=== PATIENT | male | born 1975 | race Caucasian/White ===

== ENCOUNTER 2018-01-20 09:01 | Observation (INO) | payer MEDICAID, SELFPAY ==
[2018-01-20] VITALS (7 sets, daily range): BP systolic 120–146; BP diastolic 77–101; PULSE 63–87; RESP 18–20; TEMP 36.4–37; O2SAT 95–100; BMI 25.1; BMI 26.6; BMI 26.7
--- NOTE | 2018-01-20 09:11 | CT_ITS ---
STUDY: CT ABDOMEN AND PELVIS WITH CONTRAST REASON FOR EXAM: Male, 42 years old. Pain and bloating. RADIATION DOSAGE (If Supplied By Facility): CTDIvol = ( 12.58 ) mGy, DLP = ( 1169.60 ) mGycm TECHNIQUE: Transaxial images were obtained from the dome of the diaphragm to the symphysis pubis without oral contrast. 100ML ml of Isovue 300 contrast was administered. Sagittal and coronal images were reconstructed. Individualized dose optimization techniques were used for this CT. COMPARISON: CT of the abdomen and pelvis, November 06, 2013. CT of the abdomen, June 09, 2014. FINDINGS: There is a moderate to large right pleural effusion and small to moderate left pleural effusion. There is bibasilar atelectasis. No focal pulmonary mass is seen. The visualized portions of the heart are within normal limits. The liver is enlarged but are otherwise grossly normal. The main pulmonary artery measures 1.8 cm in diameter. There is marked edema of the gallbladder wall with gallbladder contraction. There is no visualized filling defects. There is no biliary ductal dilatation. Irregularity about the posterior lateral aspect of the spleen with multiple focal calcifications suggesting prior injury. The spleen is otherwise unremarkable. There is a 3.1 x 2.4 x 2.6 cm low-attenuation mass with calcified rim in the tail the pancreas. This demonstrates fluid attenuation centrally the pancreas appears otherwise unremarkable. Splenic vein is mildly atrophic. Normal bilateral adrenal glands. Normal right kidney. Normal left kidney. No mass or hydronephrosis. There is mild stranding of the bilateral perinephric fat pararenal fascial planes greater on the right. The stomach is distended with fluid and debris. There is no obstruction or wall thickening. There is evidence of multiple varices along the lesser curvature of the stomach. Normal small bowel. Normal colon. There is non-visualization of the appendix. There is diffuse atherosclerotic calcification of the abdominal aorta, without a demonstrated aneurysm. Normal inferior vena cava. Normal retroperitoneum. Normal urinary bladder. Normal prostate. There are calcifications within the vas deferens. There is no pelvic lymphadenopathy. No free air or free fluid is seen within the peritoneal cavity. There is mild anasarca of the soft tissues of the abdominal wall and flanks. There are small bilateral inguinal hernias of omental fat. There are diffuse degenerative changes of the visualized lumbar spine. CT/Abdomen/Pelvis W IV Cont ONLY IMPRESSION: 1. Marked reduction in the size of the cyst in the tail the pancreas. This formerly measured 7.8 x 6.7 x 7.1 cm. There is been interval calcification of the rim of the cyst. 2. Hepatomegaly. There is prominence of the portal veins marked atresia of the splenic vein and distended mesenteric vessels and varices along the lesser curvature of the stomach. Findings are consistent with cirrhosis. 3. Evidence of remote splenic injury. 4. Bilateral pleural effusions and atelectasis not seen on the previous study. 5. Mild anasarca. 6. Collapsed thick-walled gallbladder. BE secondary to liver disease. Electronically Signed: Dusty Best DO at 12:03 EDT Tel [phone], Service support ,
--- NOTE | 2018-01-20 09:12 | RAD_ITS ---
STUDY: X-RAY CHEST REASON FOR EXAM: Male, 42 years old. Shortness of breath. Bloating. TECHNIQUE: Single AP portable view of the chest. August 13, 2014. COMPARISON: None. FINDINGS: There is a decreased inspiratory effort. There is increasing density at the right lung base which may represent infiltrate. The lungs are otherwise clear. There is no demonstrated pleural abnormality. Normal size heart. Normal mediastinum and mc. Normal visualized pulmonary arteries. Normal visualized aortic arch and descending thoracic aorta. The thoracic spine is obscured by the mediastinum. Normal visualized ribs, clavicles, and shoulders. There is no demonstrated abnormality of the visualized soft tissue structures of the upper abdomen. RAD/Chest 1 View (Portable) IMPRESSION: Question right basilar infiltrate. Electronically Signed: Dusty Best DO at 10:53 EDT Tel [phone], Service support ,
[2018-01-20 09:24] LABS: Absolute Lymphocyte Count 1.11 X10^3/ul (0.83-4.51); Absolute Neutrophil Count 4.4 X10^3/uL (2.0-7.7); Basophil# 0.07 X10^3/uL; Basophil% 1.1 % (0-1); Eosinophil# 0.08 X10^3/uL; Eosinophils% 1.3 % (0-5); Hematocrit 27.3 % (40-54); Hemoglobin 9.1 g/dl (13.0-16.5); Lymphocyte # 1.11 X10^3/ul (4.0); Lymphocyte % 18.2 % (19-41); Mean Corp Hgb Conc 33.3 g/gl (32-36); Mean Corpuscular Hgb 32.7 pg (27.0-32.0); Mean Corpuscular Volume 98.2 fL (80-94); Mean Platelet Vol. 8.4 fl (6.2-12.0); Monocyte# 0.49 X10^3/uL; Neutrophil # 4.35 X10^3/uL (2.7-7.7); Neutrophil % 71.2 % (47-70); POSITIVE COUNT NO; POSITIVE DIFFERENTIAL NO; POSITIVE MORPHOLOGY NO; Platelet Count 280 K/mm3 (150-450); RBC Distribution Width CV 14.9 % (11.6-14.6); RBC Distribution Width SD 50.1 fl (35.1-43.9); Red Blood Count 2.78 M/mm3 (4.6-6.2); White Blood Count 6.1 K/mm3 (4.4-11.0)
[2018-01-20 09:40] LABS: ALB/GLOB Ratio 0.9 RATIO (0.9-2.4); AST(SGOT) 59 U/L (15-37); Alanine Aminotransfer ALT/SGPT 49 U/L (16-61); Albumin, Serum 2.9 g/dL (3.2-5.0); Alkaline Phosphatase 68 U/L (45-117); Anion Gap 6 (5-15); BUN 12 mg/dL (7-18); BUN/Creat Ratio 17.3 RATIO (10-20); Calcium,Total 7.7 mg/dL (8.5-10.1); Chloride 105 mmol/L (98-107); Creatinine, Serum 0.69 mg/dL (0.70-1.30); EST Glomerular Filtration Rate 133 mL/min (>60); Est Glom Filt Rate - Afr Amer 161 mL/min (>60); Estimated Creatinine Clearance 150.05 ml/min; Globulin 3.4 g/dL (2.2-4.2); Glucose 68 mg/dL (74-106); Lipase 91 U/L (73-393); Potassium 5.3 mmol/L (3.5-5.1); Protein, Total 6.3 g/dL (6.4-8.2); Sodium Level 138 mmol/L (136-145)
--- NOTE | 2018-01-20 13:24 | EKG12_ITS ---
Test Reason : PRE ADMISSION Blood Pressure : / mmHG Vent. Rate : 065 BPM Atrial Rate : 065 BPM P-R Int : 132 ms QRS Dur : 082 ms QT Int : 428 ms P-R-T Axes : 045 055 020 degrees QTc Int : 445 ms Normal sinus rhythm Low voltage QRS Borderline ECG Confirmed by SARAI RUIZ, YVONNE ([id number]), magazine editor ALISHA ALLEN ([id number]) on 01/23/2018 4:23:46 PM Referred By: AGUSTÍN Confirmed By:YVONNE MOON MD
[2018-01-20] MEDS: Acetaminophen 500 MG Tablet 1000 MG PO (13:36)
--- NOTE | 2018-01-20 14:38 | ED.VISSUMM ---
- ER Visit Summary Date of Service: 01/20/18 Chief Complaint: [abdominal swelling and shortness of breath.] History of Present Illness: The patient is a 42 M [the presents with abdominal swelling and shortness of breath worsening over the last 4 days. He has a history of prior pancreatitis but denies any nausea or vomiting. He denies any chest pain. He states he has a history of cirrhosis. He has no other complaints.] Physical Examination: [General: The patient appears well and in no apparent distress. Patient is resting comfortably on cart. Skin: Warm, dry, no pallor noted. No rash. Head: Normocephalic, atraumatic Neck: Supple, nontender. No JVD. Eye: PERRLA, EOMI. No jaundice. ENT: Moist mucus membranes, pharynx within normal limits. Cardiovascular: Regular Rate and Rhythm, no gallups or rubs Respiratory: Patient is in no distress, no accessory muscle use, lungs are clear to auscultation, no wheezing, rales or rhonchi Musculoskeletal: normal ROM, no deformity, no tenderness, no swelling. 2+ radial and DP pulses symmetric. GI: No tenderness to palpation, no masses appreciated. Mild distension. No rebound, guarding, or rigidity noted. Neurological: A&Ox3, normal strength and sensation. GCS 15. Psychiatric: Cooperative] Test Results: [Potassium slightly elevated at 5.3. Liver enzymes were normal. Chest x-ray shows right-sided effusion. CT abdomen and pelvis shows moderate to large right-sided pleural effusion and lesser left-sided pleural effusion. There has been decrease in size of his pancreatic cyst.] Emergency Department Course and Treatment: [Patient has new pleural effusions and dyspnea, EKG sinus rhythm with a rate of 65, no acute ischemic changes or arrhythmia. He is symptomatically dyspneic. No cardiac history. He denies chest pain. Patient discussed with Dr. Mckinley and will be admitted to the medical floor for further evaluation. Patient admitted in stable condition.] Treatment Plan: [admission] Disposition: [admission] Impression: [Dyspnea, Bilateral Pleural Effusions] This note was generated with [employer] dictation software. It may contain incorrect words, spelling, and punctuation that were not noted in review of the chart prior to signing ED Disposition - Plan for ED Patient: Disposition: Acute Care Hospital [facility] Chief Complaint: Shortness of Breath Referrals: [facility] [Primary Care Provider] -
--- NOTE | 2018-01-20 14:46 | ED.DCSUM_ITS ---
- ER Visit Summary Date of Service: 01/20/18 Chief Complaint: [abdominal swelling and shortness of breath.] History of Present Illness: The patient is a 42 M [the presents with abdominal swelling and shortness of breath worsening over the last 4 days. He has a history of prior pancreatitis but denies any nausea or vomiting. He denies any chest pain. He states he has a history of cirrhosis. He has no other complaints.] Physical Examination: [General: The patient appears well and in no apparent distress. Patient is resting comfortably on cart. Skin: Warm, dry, no pallor noted. No rash. Head: Normocephalic, atraumatic Neck: Supple, nontender. No JVD. Eye: PERRLA, EOMI. No jaundice. ENT: Moist mucus membranes, pharynx within normal limits. Cardiovascular: Regular Rate and Rhythm, no gallups or rubs Respiratory: Patient is in no distress, no accessory muscle use, lungs are clear to auscultation, no wheezing, rales or rhonchi Musculoskeletal: normal ROM, no deformity, no tenderness, no swelling. 2+ radial and DP pulses symmetric. GI: No tenderness to palpation, no masses appreciated. Mild distension. No rebound, guarding, or rigidity noted. Neurological: A&Ox3, normal strength and sensation. GCS 15. Psychiatric: Cooperative] Test Results: [Potassium slightly elevated at 5.3. Liver enzymes were normal. Chest x-ray shows right-sided effusion. CT abdomen and pelvis shows moderate to large right-sided pleural effusion and lesser left-sided pleural effusion. There has been decrease in size of his pancreatic cyst.] Emergency Department Course and Treatment: [Patient has new pleural effusions and dyspnea, EKG sinus rhythm with a rate of 65, no acute ischemic changes or arrhythmia. He is symptomatically dyspneic. No cardiac history. He denies chest pain. Patient discussed with Dr. Mckinley and will be admitted to the medical floor for further evaluation. Patient admitted in stable condition.] Treatment Plan: [admission] Disposition: [admission] Impression: [Dyspnea, Bilateral Pleural Effusions] This note was generated with [employer] dictation software. It may contain incorrect words, spelling, and punctuation that were not noted in review of the chart prior to signing ED Disposition - Plan for ED Patient: Disposition: Acute Care Hospital [facility] Chief Complaint: Shortness of Breath Referrals: [facility] [Primary Care Provider] -
[2018-01-20 15:31] LABS: Bedside Glucose 97 mg/dL (70-110)
[2018-01-20 15:36] LABS: Prothrombin Time (Protime)PT. 12.8 SECONDS (11.7-14.9)
[2018-01-20 15:37] LABS: Partial Thromboplast Time 27.7 Seconds (24.1-36.2)
--- NOTE | 2018-01-20 16:04 | NURSING ---
Patient's mother sought out this RN and told her that the patient was not fully truthful regarding his past substance use and alcohol use. she states that she can't count the number of drinks he has in a day and he recently has been drinking vodka. She did not elaborate on the substance use. the patient told this RN that he used a little bit of everything but that was years ago. She states that she wishes the doctor would just gice him some Ativan so he would calm down. This information was passed on to full charge bookkeeper.
[2018-01-20 16:28] LABS: BNP,B-Type NATRIURETIC PEPTIDE 516.9 pg/mL (0-100)
[2018-01-20 17:26] LABS: Bedside Glucose 226 mg/dL (70-110)
[2018-01-20] MEDS: Insulin Lispro 100 UNIT/ML INSULN.PEN SC ×2 (17:30→22:32)
--- NOTE | 2018-01-20 17:52 | ECHOD_ITS ---
Reason For Study: Elevated BNP Procedure This was a 2D Doppler, Color Flow transthoracic echocardiogram. The exam was of adequate technical quality. Exam performed portable in patient room. Left Ventricle Normal LV size. Left ventricular systolic function is normal. The estimated ejection fraction is 60 %. No regional wall motion abnormalities noted. Right Ventricle Normal RV size. Normal systolic function. Atria Normal left atrium. Normal right atrium. No doppler evidence for ASD. Mitral Valve There is no mitral annular calcification. Normal mitral valve. Trivial mitral valve insufficiency. Tricuspid Valve Normal tricuspid valve. Mild tricuspid valve insufficiency. Right ventricular systolic pressure estimated to be 41 mmHg. Aortic Valve Trisinus/trileaflet aortic valve. Normal aortic valve. Trivial aortic valve insufficiency. Pulmonic Valve The pulmonic valve is not well visualized. Trivial pulmonic valve insufficiency. Great Vessels Normal sized aortic root. Pericardium/Pleural No pericardial effusion. MMode/2D Measurements & Calculations LVIDd: 4.7 cm IVSd: 1.4 cm Ao root diam: 3.7 cm LVIDs: 2.6 cm LVPWd: 1.0 cm LA dimension: 3.9 cm FS: 44.8 % LAV(MOD-bp): 75.2 ml LVAd ap4: 30.0 cm2 SV(MOD-sp4): 49.4 ml LAV(MOD-bp) Indexed: 36.4 ml/m2 EDV(MOD-sp4): 90.2 ml LAV(MOD-sp2): 73.2 ml EDV(sp4-el): 92.6 ml LAV(MOD-sp4): 69.5 ml LVAs ap4: 18.8 cm2 ESV(MOD-sp4): 40.9 ml ESV(sp4-el): 40.9 ml EF(MOD-sp4): 54.7 % EF(sp4-el): 55.9 % SV(sp4-el): 51.8 ml LA A4 area: 22.5 cm2 RA A4 area: 18.1 cm2 Time Measurements MV dec time: 0.24 sec Doppler Measurements & Calculations MV E max jorge: 78.9 cm/sec Lat Peak E' Jorge: 11.4 cm/sec Med Peak E' Jorge: 10.5 cm/sec MV A max jorge: 55.1 cm/sec E/E' lat: 6.9 E/E' med: 7.5 MV E/A: 1.4 MV V2 max: 84.1 cm/sec MV P1/2t max jorge: 85.4 cm/sec Ao V2 max: 101.9 cm/sec MV max P.8 mmHg MV P1/2t: 74.2 msec Ao max P.2 mmHg MV V2 mean: 41.6 cm/sec MV dec slope: 337.0 cm/sec2 Ao V2 mean: 64.8 cm/sec MV mean P.83 mmHg MVA(P1/2t): 3.0 cm2 Ao mean P.9 mmHg MV V2 VTI: 21.8 cm Ao V2 VTI: 20.2 cm LV V1 max: 95.9 cm/sec PA V2 max: 74.0 cm/sec TR max jorge: 306.6 cm/sec LV V1 max P.7 mmHg TR max P.6 mmHg LV V1 mean P.6 mmHg LV V1 mean: 59.4 cm/sec LV V1 VTI: 20.4 cm Interpretation Summary Left ventricular systolic function is normal. The estimated ejection fraction is 60 %. Trivial mitral valve insufficiency. Mild tricuspid valve insufficiency. Trivial aortic valve insufficiency. Trivial pulmonic valve insufficiency. Right ventricular systolic pressure estimated to be 41 mmHg. Diastolic function: considered indeterminate. Ordering Physician: Lucio Mckinley Referring Physician: [facility] Performed By: Otoniel Alvarez RCS
--- NOTE | 2018-01-20 18:58 | PCM.HP.STD ---
Problem List (1) Abdominal bloating Status: Acute (2) Abdominal discomfort Status: Acute (3) Shortness of breath Status: Acute History of Present Illness Date of Admission: 01/20/18 Chief Complaint: Abdominal bloating, abdominal discomfort, shortness of breath The patient is a 42 year old M seen in the emergency room at [facility] with chief complaint of abdominal, and generalized abdominal pain, and a feeling of shortness of breath over the last 3 days. Patient also complains of intermittent diarrhea. Patient was placed on metformin approximately 2 months ago to help with his diabetic control. He does have a history of cirrhosis of the liver that was diagnosed in August 2017. Patient sees a nurse practitioner in the [facility], he states recently he was granted Medicaid but he does not have his Medicaid card presently. Patient denies any cough, fever, purulent sputum production, chills, or hemoptysis. Workup in the emergency room included a CT of the abdomen which showed a pancreatic cyst, hepatomegaly was also noted, there is no ascites noted, there is noted to be mild anasarca of the soft tissues of the abdominal wall and flanks. No hernias were noted bilaterally. The presence of pleural effusions were noted-there was a moderate to large right pleural effusion and a small to moderate left pleural effusion. Bibasilar atelectasis was also noted. Patient's labs were remarkable for hemoglobin of 9.1, potassium was 5.3, AST was elevated at 59, total protein was low at 6.3 and albumin was 2.9. Patient's pulse ox on room air was 100%. Patient will be placed in observation status for dyspnea and right pleural effusion, patient will be seen by pulmonary medicine and may have to undergo a thoracentesis which would be diagnostic. I believe the patient's complaints of abdominal bloating may be caused from his metformin, there are no signs of ascites on the patient's CT. I will keep the patient off metformin. Past Medical History Past Medical History (Chronic Problems): Chronic Problems History of tobacco abuse (Chronic) Pseudocyst Pancreatic Tail (Chronic) History of pancreatitis (Chronic) Type II diabetes mellitus (Chronic) History of alcohol use (Chronic) Obesity (Chronic) Dyslipidemia (Chronic) Allergies sulfamethoxazole [From Bactrim] Allergy (Verified 01/20/18 14:04) Hives trimethoprim [From Bactrim] Allergy (Verified 01/20/18 14:04) Hives Home Medications: Ambulatory Orders Medication Instructions Recorded Albuterol IH (ProAir) [Proair Hfa 2 puff INHALATION Q4H PRN 01/20/18 (SP)Vent Pts] Cholecalciferol (VIT D3) [Vitamin 1 tablet PO DAILY 01/20/18 D3] Gabapentin [Neurontin] 1 capsule PO TID 01/20/18 Ibuprofen 3 tablet PO PRN PRN 01/20/18 Insulin Aspart [Novolog Flexpen See Protocol SC TIDCM 01/20/18 ([facility])] Insulin Glargine,Hum.rec.anlog 35 units SQ DAILY 01/20/18 [Basaglar Kwikpen U-100] Metformin HCl [Glucophage] 1 tablet PO BID 01/20/18 Surgical History: noncontributory Psychiatric History: No pertinent psych hx Lives: With Family Smoking Status: Light Smoker (<10/day) Tobacco Use: Cigarettes Alcohol: None Drugs: None - *Family History Maternal History Items: Heart Disease Paternal History Items: Diabetes Review of Systems Constitutional: Denies: Anorexia, Chills, Fever, Night Sweats, Malaise, Weakness, Weight Change, Fatigue Eyes: Denies: Blurred vision, Cataracts, Conjunctivae Inflammation, Double vision, Drainage HEENT: Denies: Difficulty Swallowing, Dysphasia, Ear Pain, Eye Pain, Head Aches, Hearing Changes, Nasal bleeding, Nasal Congestion, Post Nasal Drip Cardiovascular: Denies: Chest Pain, Claudication, Chest Pressure, Chest Tightness, Edema, Orthopnea, Palpitations, Paroxysmal Noc. Dyspnea, Syncope Respiratory: Reports: Shortness of Breath, Shortness of breath upon exertion. Denies: Cough, Hemoptysis, Pleuritic Pain, Shortness of breath at rest Gastrointestinal: Reports: Abdominal Pain. Denies: Constipation, Diarrhea, Hematemesis, Hematochezia, Nausea, Melena, Vomiting Genitourinary: Denies: Dysuria, Frequency, Hematuria, Hesitancy, Incontinence, Nocturia, Urgency Musculoskeletal: Denies: Back Pain, Foot Pain, Hand Pain, Joint Pain, Joint stiffness, Joint swelling, Joint Tenderness Skin: Denies: Dryness, Jaundice, Pruritis, Rash Neurological: Denies: Blurred vision, Double vision, Change in Speech, Slurred speech, Difficulty swallowing, Focal weakness, Headaches, Incoordination, Numbness, Tingling Psychiatric: Denies: Anxiety, Depression, Homicidal Ideations, Suicidal Ideations Endocrine: Denies: Change in Body Habitus, Heat/ Cold Intolerance, Polydipsia, Polyuria Hematologic/ Lymphatic: Denies: Adenopathy, Anemia, Easy Bruising, Easy Bleeding, Petechiae, Purpura VTE Information - Inpt Only VTE Present on Admission: No VTE Mechan Device Prophylaxis: None VTE Pharm Prophylaxis ordered?: Yes Patient Problems: Active and Suspected Problems Abdominal bloating (Acute) Abdominal discomfort (Acute) Shortness of breath (Acute) - Physical Exam General: Alert, Oriented x3, Cooperative, No apparent distress, Well developed, Well nourished HEENT: Atraumatic, PERRLA, EOMI, Normocephalic Oral: Moist Mucosa Neck: Supple, No JVD, Negative Carotid Bruits, No Nuchal Rigidity, Trachea Midline, Thyroid Normal Size and Texture Lungs: Clear to auscultation, No rhonchi, No wheeze, No rales, Diminished - diminshed breath sounds at bases bilaterally Cardiovascular: Regular rate, Regular Rhythm, Normal S1, Normal S2, No murmurs, No Ectopic Activity, PMI Normal, No rub noted, No Gallop Abdomen: Bowel Sounds Present, Soft, Non Tender, Non-Distended, No hernias noted Extremities: No clubbing, No cyanosis, No edema, Capillary Refill Less than 3 Seconds Skin: No rashes, No breakdown Musculoskeletal: No Tenderness to Palpation of Joints or Extremities Neurological: Cranial nerves II-XII grossly intact, Neuro grossly intact, Motor Exam 5/5 strength throughout, Muscle tone normal, Sensory exam intact to light touch and pain Psych/Mental Status: Normal Affect, Appropriate, Alert and oriented to time, place, person, mood and affect Vital Signs Temp Pulse Resp BP Pulse Ox 98.5 F 63 18 125/93 H 100 01/20/18 16:00 01/20/18 16:00 01/20/18 16:00 01/20/18 16:00 01/20/18 16:00 Oxygen Delivery Method Room Air Weight: 86.727 kg Body Mass Index (BMI) 26.6 Intake and Output for Last 24 Hours 01/18/18 01/19/18 01/20/18 23:59 23:59 23:59 Intake Total 400 / 400 Balance 400 / 400 Laboratory Tests Past 24 Hrs 01/20/18 15:20 PT 12.8 INR 1.0 APTT 27.7 POC Glucose 01/20/18 01/20/18 17:20 15:23 POC Glucose 226 H 97 Assessment/Plan All Active Problems Abdominal bloating (Acute) Abdominal discomfort (Acute) Shortness of breath (Acute) #1 Right and left pleural effusions-etiology unknown, patient will be placed into observation status, he will be seen by pulmonary medicine, pulse ox will be monitored #2 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 Cesar at the [facility] for Hepatitis C, patient states he quit drinking two weeks ago, his Mother told nursing that he still drinks at home, it is unknown how much he drinks #3 Anemia-type unknown, I will order iron studies #4 Abdominal pain and bloating, probably secondary to Metformin use, don't know why patient is on Metformin-he states he has type 1 DM #5 DM- unknown if type 1 or type 2- will continue patient on basal insulin, fingerstick blood sugars will be obtained and sliding scale insulin will be given Further note: patient had a BNP ordered by ER- it was elevated at 516, I will order echo of heart on patient, last echo done was 2014 due to c/o chest pain, this was unremarkable Code Visit OBSV E&M: 94839 Initial observation care L3
--- NOTE | 2018-01-20 19:09 | HP.PCM_ITS ---
Problem List (1) Abdominal bloating Status: Acute (2) Abdominal discomfort Status: Acute (3) Shortness of breath Status: Acute History of Present Illness Date of Admission: 01/20/18 Chief Complaint: Abdominal bloating, abdominal discomfort, shortness of breath The patient is a 42 year old M seen in the emergency room at [facility] with chief complaint of abdominal, and generalized abdominal pain, and a feeling of shortness of breath over the last 3 days. Patient also complains of intermittent diarrhea. Patient was placed on metformin approximately 2 months ago to help with his diabetic control. He does have a history of cirrhosis of the liver that was diagnosed in August 2017. Patient sees a nurse practitioner in the [facility], he states recently he was granted Medicaid but he does not have his Medicaid card presently. Patient denies any cough, fever, purulent sputum production, chills, or hemoptysis. Workup in the emergency room included a CT of the abdomen which showed a pancreatic cyst, hepatomegaly was also noted, there is no ascites noted, there is noted to be mild anasarca of the soft tissues of the abdominal wall and flanks. No hernias were noted bilaterally. The presence of pleural effusions were noted-there was a moderate to large right pleural effusion and a small to moderate left pleural effusion. Bibasilar atelectasis was also noted. Patient' s labs were remarkable for hemoglobin of 9.1, potassium was 5.3, AST was elevated at 59, total protein was low at 6.3 and albumin was 2.9. Patient's pulse ox on room air was 100%. Patient will be placed in observation status for dyspnea and right pleural effusion, patient will be seen by pulmonary medicine and may have to undergo a thoracentesis which would be diagnostic. I believe the patient's complaints of abdominal bloating may be caused from his metformin, there are no signs of ascites on the patient's CT. I will keep the patient off metformin. Past Medical History Past Medical History (Chronic Problems): Chronic Problems History of tobacco abuse (Chronic) Pseudocyst Pancreatic Tail (Chronic) History of pancreatitis (Chronic) Type II diabetes mellitus (Chronic) History of alcohol use (Chronic) Obesity (Chronic) Dyslipidemia (Chronic) Allergies sulfamethoxazole [From Bactrim] Allergy (Verified 01/20/18 14:04) Hives trimethoprim [From Bactrim] Allergy (Verified 01/20/18 14:04) Hives Home Medications: Ambulatory Orders Medication Instructions Recorded Albuterol IH (ProAir) [Proair Hfa 2 puff INHALATION Q4H PRN 01/20/18 (SP)Vent Pts] Cholecalciferol (VIT D3) [Vitamin 1 tablet PO DAILY 01/20/18 D3] Gabapentin [Neurontin] 1 capsule PO TID 01/20/18 Ibuprofen 3 tablet PO PRN PRN 01/20/18 Insulin Aspart [Novolog Flexpen See Protocol SC TIDCM 01/20/18 ([facility])] Insulin Glargine,Hum.rec.anlog 35 units SQ DAILY 01/20/18 [Basaglar Kwikpen U-100] Metformin HCl [Glucophage] 1 tablet PO BID 01/20/18 Surgical History: noncontributory Psychiatric History: No pertinent psych hx Lives: With Family Smoking Status: Light Smoker (<10/day) Tobacco Use: Cigarettes Alcohol: None Drugs: None - *Family History Maternal History Items: Heart Disease Paternal History Items: Diabetes Review of Systems Constitutional: Denies: Anorexia, Chills, Fever, Night Sweats, Malaise, Weakness , Weight Change, Fatigue Eyes: Denies: Blurred vision, Cataracts, Conjunctivae Inflammation, Double vision, Drainage HEENT: Denies: Difficulty Swallowing, Dysphasia, Ear Pain, Eye Pain, Head Aches , Hearing Changes, Nasal bleeding, Nasal Congestion, Post Nasal Drip Cardiovascular: Denies: Chest Pain, Claudication, Chest Pressure, Chest Tightness, Edema, Orthopnea, Palpitations, Paroxysmal Noc. Dyspnea, Syncope Respiratory: Reports: Shortness of Breath, Shortness of breath upon exertion. Denies: Cough, Hemoptysis, Pleuritic Pain, Shortness of breath at rest Gastrointestinal: Reports: Abdominal Pain. Denies: Constipation, Diarrhea, Hematemesis, Hematochezia, Nausea, Melena, Vomiting Genitourinary: Denies: Dysuria, Frequency, Hematuria, Hesitancy, Incontinence, Nocturia, Urgency Musculoskeletal: Denies: Back Pain, Foot Pain, Hand Pain, Joint Pain, Joint stiffness, Joint swelling, Joint Tenderness Skin: Denies: Dryness, Jaundice, Pruritis, Rash Neurological: Denies: Blurred vision, Double vision, Change in Speech, Slurred speech, Difficulty swallowing, Focal weakness, Headaches, Incoordination, Numbness, Tingling Psychiatric: Denies: Anxiety, Depression, Homicidal Ideations, Suicidal Ideations Endocrine: Denies: Change in Body Habitus, Heat/ Cold Intolerance, Polydipsia, Polyuria Hematologic/ Lymphatic: Denies: Adenopathy, Anemia, Easy Bruising, Easy Bleeding , Petechiae, Purpura VTE Information - Inpt Only VTE Present on Admission: No VTE Mechan Device Prophylaxis: None VTE Pharm Prophylaxis ordered?: Yes Patient Problems: Active and Suspected Problems Abdominal bloating (Acute) Abdominal discomfort (Acute) Shortness of breath (Acute) - Physical Exam General: Alert, Oriented x3, Cooperative, No apparent distress, Well developed, Well nourished HEENT: Atraumatic, PERRLA, EOMI, Normocephalic Oral: Moist Mucosa Neck: Supple, No JVD, Negative Carotid Bruits, No Nuchal Rigidity, Trachea Midline, Thyroid Normal Size and Texture Lungs: Clear to auscultation, No rhonchi, No wheeze, No rales, Diminished - diminshed breath sounds at bases bilaterally Cardiovascular: Regular rate, Regular Rhythm, Normal S1, Normal S2, No murmurs, No Ectopic Activity, PMI Normal, No rub noted, No Gallop Abdomen: Bowel Sounds Present, Soft, Non Tender, Non-Distended, No hernias noted Extremities: No clubbing, No cyanosis, No edema, Capillary Refill Less than 3 Seconds Skin: No rashes, No breakdown Musculoskeletal: No Tenderness to Palpation of Joints or Extremities Neurological: Cranial nerves II-XII grossly intact, Neuro grossly intact, Motor Exam 5/5 strength throughout, Muscle tone normal, Sensory exam intact to light touch and pain Psych/Mental Status: Normal Affect, Appropriate, Alert and oriented to time, place, person, mood and affect Vital Signs Temp Pulse Resp BP Pulse Ox 98.5 F 63 18 125/93 H 100 01/20/18 16:00 01/20/18 16:00 01/20/18 16:00 01/20/18 16:00 01/20/18 16:00 Oxygen Delivery Method Room Air Weight: 86.727 kg Body Mass Index (BMI) 26.6 Intake and Output for Last 24 Hours 01/18/18 01/19/18 01/20/18 23:59 23:59 23:59 Intake Total 400 / 400 Balance 400 / 400 Laboratory Tests Past 24 Hrs 01/20/18 15:20 PT 12.8 INR 1.0 APTT 27.7 POC Glucose 01/20/18 01/20/18 17:20 15:23 POC Glucose 226 H 97 Assessment/Plan All Active Problems Abdominal bloating (Acute) Abdominal discomfort (Acute) Shortness of breath (Acute) #1 Right and left pleural effusions-etiology unknown, patient will be placed into observation status, he will be seen by pulmonary medicine, pulse ox will be monitored #2 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 Cesar at the [facility] for Hepatitis C, patient states he quit drinking two weeks ago, his Mother told nursing that he still drinks at home, it is unknown how much he drinks #3 Anemia-type unknown, I will order iron studies #4 Abdominal pain and bloating, probably secondary to Metformin use, don't know why patient is on Metformin-he states he has type 1 DM #5 DM- unknown if type 1 or type 2- will continue patient on basal insulin, fingerstick blood sugars will be obtained and sliding scale insulin will be given Further note: patient had a BNP ordered by ER- it was elevated at 516, I will order echo of heart on patient, last echo done was 2014 due to c/o chest pain, this was unremarkable Code Visit OBSV E&M: 19052 Initial observation care L3
[2018-01-20] MEDS: Acetaminophen 325 MG Tablet 650 MG PO (19:21)
[2018-01-20 22:36] LABS: Bedside Glucose 168 mg/dL (70-110)
[2018-01-20] MEDS: hydrOXYzine PAM 25 MG Capsule 50 MG PO (22:36)
[2018-01-21] MEDS: Gabapentin 100 MG Capsule PO ×3 (00:02→14:29)
[2018-01-21 04:20] VITALS: BP 137/99; PULSE 76; RESP 18; TEMP 36.8; O2SAT 98
[2018-01-21] MEDS: Acetaminophen 325 MG Tablet 650 MG PO ×2 (04:25→14:29)
[2018-01-21 04:30] VITALS: PULSE 76; RESP 18; O2SAT 98
[2018-01-21 05:26] LABS: Bedside Glucose 60 mg/dL (70-110)
[2018-01-21] MEDS: 0.9% NaCl Peripheral Flush Adult/Peds IV ×2 (05:30→08:39)
[2018-01-21] MEDS: Dextrose 50%-Water 25 GM/50 ML DISP.SYRIN IV ×2 (05:30→08:38)
[2018-01-21 06:21] LABS: Absolute Neutrophil Count 2.7 X10^3/uL (2.0-7.7); Eosinophil# 0.14 X10^3/uL; Eosinophils% 2.7 % (0-5); Hematocrit 27.2 % (40-54); Lymphocyte % 33.3 % (19-41); Mean Corp Hgb Conc 33.1 g/gl (32-36); Mean Corpuscular Hgb 32.3 pg (27.0-32.0); Mean Corpuscular Volume 97.5 fL (80-94); Mean Platelet Vol. 9.4 fl (6.2-12.0); Monocyte# 0.44 X10^3/uL; Monocyte% 8.6 % (0-10); Platelet Count 282 K/mm3 (150-450); RBC Distribution Width CV 14.9 % (11.6-14.6); RBC Distribution Width SD 48.8 fl (35.1-43.9); Red Blood Count 2.79 M/mm3 (4.6-6.2); White Blood Count 5.1 K/mm3 (4.4-11.0)
[2018-01-21 06:23] LABS: Iron 48 ug/dL (65-175); Iron Binding Capacity,Total 257 ug/dL (250-450); PERCENT IRON SATURATION 18.7 % (15.0-55.0)
[2018-01-21 06:26] LABS: Bedside Glucose 94 mg/dL (70-110)
[2018-01-21 06:32] LABS: Anion Gap 6 (5-15); BUN 11 mg/dL (7-18); Calcium,Total 7.7 mg/dL (8.5-10.1); Chloride 109 mmol/L (98-107); Creatinine, Serum 0.61 mg/dL (0.70-1.30); EST Glomerular Filtration Rate 155 mL/min (>60); Est Glom Filt Rate - Afr Amer 187 mL/min (>60); Estimated Creatinine Clearance 169.73 ml/min; Glucose 51 mg/dL (74-106); Potassium 4.6 mmol/L (3.5-5.1); Sodium Level 143 mmol/L (136-145)
[2018-01-21 06:37] LABS: POSITIVE COUNT NO; POSITIVE DIFFERENTIAL NO; POSITIVE MORPHOLOGY NO
[2018-01-21 08:43] VITALS: BP 126/84; PULSE 67; RESP 14; TEMP 36.6; O2SAT 98
[2018-01-21 08:51] LABS: Bedside Glucose 71 mg/dL (70-110)
--- NOTE | 2018-01-21 09:10 | NURSING ---
0900, rechecked blood sugar 113. dr alan aware
[2018-01-21 09:15] LABS: Bedside Glucose 113 mg/dL (70-110)
--- NOTE | 2018-01-21 09:33 | PCM.PROGNOTE ---
Subjective: Chief complaint: Follow-up after admission for bilateral pleural effusions seem to be small. Patient seen and examined. No acute events overnight. He complains of mild abdominal bloating which is likely because of myofascitis. He denies abdominal pain, nausea vomiting. He has no more shortness of breath. Denied chest pain. No cough or sputum production. His vital signs are stable. - Physical Exam General: Alert, Oriented x3, Cooperative HEENT: Atraumatic, PERRLA, EOMI, Normocephalic Oral: Moist Mucosa, No Gingival or Mucosal Lesions/ Ulcerations Neck: Supple, No JVD, Negative Carotid Bruits, Trachea Midline, Thyroid Normal Size and Texture Lungs: Clear to auscultation, No rhonchi, No wheeze, No rales, Diminished, - - Decreased breath sounds at the bases, otherwise clear. Cardiovascular: Regular rate, Regular Rhythm, Normal S1, Normal S2, PMI Normal Abdomen: Bowel Sounds Present, Soft, Non Tender, Non-Distended, No Hepato-splenomegaly Extremities: No clubbing, No cyanosis, Edema - Trace edema. Skin: No rashes, No breakdown Lymphatic: No Cervical, Supraclavicular, or Inguinal Adenopathy Neurological: Cranial nerves II-XII grossly intact, Motor Exam 5/5 strength throughout Psych/Mental Status: Normal Affect, Appropriate Vital Signs Temp Pulse Resp BP Pulse Ox 97.8 F 67 14 126/84 H 98 01/21/18 08:43 01/21/18 08:43 01/21/18 08:43 01/21/18 08:43 01/21/18 08:43 Oxygen Delivery Method Room Air Weight: 191 lb 3.2 oz Body Mass Index (BMI) 26.6 Intake and Output for Last 24 Hours 01/19/18 01/20/18 01/21/18 23:59 23:59 23:59 Intake Total 400 / 400 640 / 640 Balance 400 / 400 640 / 640 Laboratory Tests Past 24 Hrs 01/20/18 01/21/18 01/21/18 15:20 05:15 05:15 WBC RBC Hgb Hct MCV MCH MCHC RDW RDW Differential Plt Count MPV Immature Gran % (Auto) Neut % (Auto) Lymph % (Auto) [place] % (Auto) Eos % (Auto) Baso % (Auto) Absolute Neuts (auto) Absolute Lymphs (auto) Total Counted PT 12.8 INR 1.0 APTT 27.7 Sodium Potassium Chloride Carbon Dioxide Anion Gap BUN Creatinine Estim Creat Clear Calc Est GFR (MDRD) Af Amer Est GFR (MDRD) Non-Af BUN/Creatinine Ratio Glucose Calcium Iron 48 L TIBC 257 Iron Saturation 18.7 Vitamin B12 Pending 01/21/18 01/21/18 05:15 05:15 WBC 5.1 RBC 2.79 L Hgb 9.0 L Hct 27.2 L MCV 97.5 H MCH 32.3 H MCHC 33.1 RDW 14.9 H RDW Differential 48.8 H Plt Count 282 MPV 9.4 Immature Gran % (Auto) 0.400 Neut % (Auto) 53.0 Lymph % (Auto) 33.3 [place] % (Auto) 8.6 Eos % (Auto) 2.7 Baso % (Auto) 2.0 H Absolute Neuts (auto) 2.7 Absolute Lymphs (auto) 1.70 Total Counted Not Reportable PT INR APTT Sodium 143 Potassium 4.6 Chloride 109 H Carbon Dioxide 28.0 Anion Gap 6 BUN 11 Creatinine 0.61 L Estim Creat Clear Calc 169.73 Est GFR (MDRD) Af Amer 187 Est GFR (MDRD) Non-Af 155 BUN/Creatinine Ratio 18.0 Glucose 51 L Calcium 7.7 L Iron TIBC Iron Saturation Vitamin B12 POC Glucose 01/21/18 01/21/18 01/21/18 08:58 08:29 06:07 POC Glucose 113 H 71 94 01/21/18 01/20/18 01/20/18 05:21 22:30 17:20 POC Glucose 60 L 168 H 226 H 01/20/18 15:23 POC Glucose 97 Clinical Impression(s) from Imaging Studies Abdomen/Pelvis CT 01/20/18 09:11 IMPRESSION: 1. Marked reduction in the size of the cyst in the tail the pancreas. This formerly measured 7.8 x 6.7 x 7.1 cm. There is been interval calcification of the rim of the cyst. 2. Hepatomegaly. There is prominence of the portal veins marked atresia of the splenic vein and distended mesenteric vessels and varices along the lesser curvature of the stomach. Findings are consistent with cirrhosis. 3. Evidence of remote splenic injury. 4. Bilateral pleural effusions and atelectasis not seen on the previous study. 5. Mild anasarca. 6. Collapsed thick-walled gallbladder. BE secondary to liver disease. Electronically Signed: Dusty Best at 12:03 EDT Tel [phone], Service support , Chest X-Ray 01/20/18 09:12 IMPRESSION: Question right basilar infiltrate. Electronically Signed: Dusty Best DO at 10:53 EDT Tel [phone], Service support , Medical Necessity - Tobacco Use Smoking Status: Light Smoker (<10/day) Tobacco Use: Cigarettes Assessment/Plan This is a 42 years old male patient presented to the medicine because of abdominal bloating and shortness of breath, found to have bilateral pleural effusion on CT scan abdomen and admitted for evaluation. #1 bilateral pleural effusion: This is an incidental finding on CT scan abdomen. Chest x-ray revealed clear bilateral costophrenic angles. He does have liver cirrhosis and this could be due to a transudate a few secondary to liver cirrhosis. His BNP was elevated at 516. He has no cardiac history. Respiratory status stable, maintaining pulse ox on room air. Pulmonology consulted. 2D echocardiogram ordered. Plan: Start oral Lasix, awaiting pulmonology recommendations.. #2 abdominal pain/bloating: CT scan abdomen with chronic findings, reviewed. No acute findings. Today, he has no more pain. His LFT and lipase were normal. #3 anemia: It is normocytic anemia. His baseline who has been around 10-12 g/dL. Today's hemoglobin is 9 g/dL. No evidence of active bleeding. Back in 2013, hemoglobin was around 10 g/dL and since then, he has no CBC and his chart. Serum iron is slightly low, TIBC and iron saturation are normal. B12 is pending. No indication for transfusion. #4 liver cirrhosis: Secondary to alcohol abuse and hepatitis C. At this time, no evidence of hepatic encephalopathy. He has no significant ascites. He denies constipation. #5 type 2 diabetes mellitus: ADA diet, Accu-Cheks, continue Lantus and sliding scale. Patient was started on metformin recently. #6 history of pancreatitis/pancreatic pseudocyst: CT scan abdomen revealed markedly reduction in size of the pancreatic pseudocyst. #7 DVT prophylaxis: Low risk patient, no prophylaxis indicated. This note was generated with [employer] dictation software. It may contain incorrect words, spelling, and punctuation that were not noted in checking the note before signing.
--- NOTE | 2018-01-21 09:36 | PN_ITS ---
Subjective: Chief complaint: Follow-up after admission for bilateral pleural effusions seem to be small. Patient seen and examined. No acute events overnight. He complains of mild abdominal bloating which is likely because of myofascitis. He denies abdominal pain, nausea vomiting. He has no more shortness of breath. Denied chest pain. No cough or sputum production. His vital signs are stable. - Physical Exam General: Alert, Oriented x3, Cooperative HEENT: Atraumatic, PERRLA, EOMI, Normocephalic Oral: Moist Mucosa, No Gingival or Mucosal Lesions/ Ulcerations Neck: Supple, No JVD, Negative Carotid Bruits, Trachea Midline, Thyroid Normal Size and Texture Lungs: Clear to auscultation, No rhonchi, No wheeze, No rales, Diminished, - - Decreased breath sounds at the bases, otherwise clear. Cardiovascular: Regular rate, Regular Rhythm, Normal S1, Normal S2, PMI Normal Abdomen: Bowel Sounds Present, Soft, Non Tender, Non-Distended, No Hepato- splenomegaly Extremities: No clubbing, No cyanosis, Edema - Trace edema. Skin: No rashes, No breakdown Lymphatic: No Cervical, Supraclavicular, or Inguinal Adenopathy Neurological: Cranial nerves II-XII grossly intact, Motor Exam 5/5 strength throughout Psych/Mental Status: Normal Affect, Appropriate Vital Signs Temp Pulse Resp BP Pulse Ox 97.8 F 67 14 126/84 H 98 01/21/18 08:43 01/21/18 08:43 01/21/18 08:43 01/21/18 08:43 01/21/18 08:43 Oxygen Delivery Method Room Air Weight: 191 lb 3.2 oz Body Mass Index (BMI) 26.6 Intake and Output for Last 24 Hours 01/19/18 01/20/18 01/21/18 23:59 23:59 23:59 Intake Total 400 / 400 640 / 640 Balance 400 / 400 640 / 640 Laboratory Tests Past 24 Hrs 01/20/18 01/21/18 01/21/18 15:20 05:15 05:15 WBC RBC Hgb Hct MCV MCH MCHC RDW RDW Differential Plt Count MPV Immature Gran % (Auto) Neut % (Auto) Lymph % (Auto) [place] % (Auto) Eos % (Auto) Baso % (Auto) Absolute Neuts (auto) Absolute Lymphs (auto) Total Counted PT 12.8 INR 1.0 APTT 27.7 Sodium Potassium Chloride Carbon Dioxide Anion Gap BUN Creatinine Estim Creat Clear Calc Est GFR (MDRD) Af Amer Est GFR (MDRD) Non-Af BUN/Creatinine Ratio Glucose Calcium Iron 48 L TIBC 257 Iron Saturation 18.7 Vitamin B12 Pending 01/21/18 01/21/18 05:15 05:15 WBC 5.1 RBC 2.79 L Hgb 9.0 L Hct 27.2 L MCV 97.5 H MCH 32.3 H MCHC 33.1 RDW 14.9 H RDW Differential 48.8 H Plt Count 282 MPV 9.4 Immature Gran % (Auto) 0.400 Neut % (Auto) 53.0 Lymph % (Auto) 33.3 [place] % (Auto) 8.6 Eos % (Auto) 2.7 Baso % (Auto) 2.0 H Absolute Neuts (auto) 2.7 Absolute Lymphs (auto) 1.70 Total Counted Not Reportable PT INR APTT Sodium 143 Potassium 4.6 Chloride 109 H Carbon Dioxide 28.0 Anion Gap 6 BUN 11 Creatinine 0.61 L Estim Creat Clear Calc 169.73 Est GFR (MDRD) Af Amer 187 Est GFR (MDRD) Non-Af 155 BUN/Creatinine Ratio 18.0 Glucose 51 L Calcium 7.7 L Iron TIBC Iron Saturation Vitamin B12 POC Glucose 01/21/18 01/21/18 01/21/18 08:58 08:29 06:07 POC Glucose 113 H 71 94 01/21/18 01/20/18 01/20/18 05:21 22:30 17:20 POC Glucose 60 L 168 H 226 H 01/20/18 15:23 POC Glucose 97 Clinical Impression(s) from Imaging Studies Abdomen/Pelvis CT 01/20/18 09:11 IMPRESSION: 1. Marked reduction in the size of the cyst in the tail the pancreas. This formerly measured 7.8 x 6.7 x 7.1 cm. There is been interval calcification of the rim of the cyst. 2. Hepatomegaly. There is prominence of the portal veins marked atresia of the splenic vein and distended mesenteric vessels and varices along the lesser curvature of the stomach. Findings are consistent with cirrhosis. 3. Evidence of remote splenic injury. 4. Bilateral pleural effusions and atelectasis not seen on the previous study. 5. Mild anasarca. 6. Collapsed thick-walled gallbladder. BE secondary to liver disease. Electronically Signed: Dusty Best at 12:03 EDT Tel [phone], Service support , Chest X-Ray 01/20/18 09:12 IMPRESSION: Question right basilar infiltrate. Electronically Signed: Dusty Best DO at 10:53 EDT Tel [phone], Service support , Medical Necessity - Tobacco Use Smoking Status: Light Smoker (<10/day) Tobacco Use: Cigarettes Assessment/Plan This is a 42 years old male patient presented to the medicine because of abdominal bloating and shortness of breath, found to have bilateral pleural effusion on CT scan abdomen and admitted for evaluation. #1 bilateral pleural effusion: This is an incidental finding on CT scan abdomen. Chest x-ray revealed clear bilateral costophrenic angles. He does have liver cirrhosis and this could be due to a transudate a few secondary to liver cirrhosis. His BNP was elevated at 516. He has no cardiac history. Respiratory status stable, maintaining pulse ox on room air. Pulmonology consulted. 2D echocardiogram ordered. Plan: Start oral Lasix, awaiting pulmonology recommendations.. #2 abdominal pain/bloating: CT scan abdomen with chronic findings, reviewed. No acute findings. Today, he has no more pain. His LFT and lipase were normal. #3 anemia: It is normocytic anemia. His baseline who has been around 10-12 g/ dL. Today's hemoglobin is 9 g/dL. No evidence of active bleeding. Back in 2013, hemoglobin was around 10 g/dL and since then, he has no CBC and his chart. Serum iron is slightly low, TIBC and iron saturation are normal. B12 is pending. No indication for transfusion. #4 liver cirrhosis: Secondary to alcohol abuse and hepatitis C. At this time, no evidence of hepatic encephalopathy. He has no significant ascites. He denies constipation. #5 type 2 diabetes mellitus: ADA diet, Accu-Cheks, continue Lantus and sliding scale. Patient was started on metformin recently. #6 history of pancreatitis/pancreatic pseudocyst: CT scan abdomen revealed markedly reduction in size of the pancreatic pseudocyst. #7 DVT prophylaxis: Low risk patient, no prophylaxis indicated. This note was generated with [employer] dictation software. It may contain incorrect words, spelling, and punctuation that were not noted in checking the note before signing.
--- NOTE | 2018-01-21 09:49 | PCM.CONS.GEN ---
Problem List (1) Pleural effusion Status: Acute (2) Liver cirrhosis Status: Chronic (3) History of tobacco abuse Status: Chronic (4) History of pancreatitis Status: Chronic (5) Type II diabetes mellitus Status: Chronic (6) History of alcohol use Status: Chronic (7) Obesity Status: Chronic (8) Dyslipidemia Status: Chronic Reason for Consult Date of Consultation: 01/21/18 Reason for Consultation: pleural effusion History of Present Illness: The patient is a 42 year old M with a past medical history of pancreatitis, alcohol and drug abuse, diagnosed with liver cirrhosis in August 2017, presented to the ED on 01/20/18 with complaints of abdominal bloating with pain and shortness of breath for the last few days. The patient did have some chest pain as well after eating, which has since resolved. This was new for him so he decided to go to the ED at the urging of his mother. Denies any fever, chills, or night sweats. He has not had any recent weight loss. Denies any cough or sputum production. No hemoptysis. No history of swallowing difficulties. Denies any orthopnea or paroxysmal nocturnal dyspnea. Patient complains of chronic vertigo. Denies any history of bleeding in his urine or stool. His vitals were stable on arrival, BP 122/77, pulse 87, RR 20, 97.6?F, and 100% on room air. Initial blood work showed no leukocytosis, hemoglobin was 9.1 and hematocrit 27.3, platelets were normal. Coags were normal. Potassium was mildly elevated at 5.3, BUN of 12 and creatinine 0.69. AST 59 and ALT 49. BNP was elevated at 516. Total protein 6.3 and albumin 2.9. Plain film chest x-ray revealed an increase in density of the right lung base with questionable infiltrate. There is no demonstrated pleural abnormality. Due to the abdominal discomfort, a CT of the abdomen and pelvis was obtained and revealed marked reduction in the size of the cyst in the tail of pancreas, hepatomegaly, findings consistent with cirrhosis, evidence of remote splenic injury, bilateral pleural effusions and atelectasis, mild anasarca, and collapsed thick-walled gallbladder. The patient was given a fluid bolus and extra strength Tylenol and admitted to the medical surgical floor for further evaluation and management. Pulmonary was consulted for the pleural effusions with questionable need for thoracentesis. The patient has maintained appropriate saturations on room air. He is currently not complaining of any more shortness of breath, chest pain, cough, sputum production, nausea, vomiting, or diarrhea. He denies any hemoptysis. No recent weight loss, night sweats, or nocturia. Patient does have a significant past smoking history, at minimum 25 pack years. He also has tried several different types of drugs but would not elaborate. Denies any recent use in the last year. He had pneumonia once before, however this was several years ago. He does think he had fluid in his lungs at one point as well that required a diuretic. Patient has never had any formal pulmonary workup or seen a auto overhauler. Denies any family or personal history of cancer. He has not had a colonoscopy before. Reports he still drinks, but not as heavy as he used to. His last drink was approximately 2 weeks ago, states he typically drinks 1/5 of vodka twice a week. He has never been in any rehab facilities. Reports remote past history of counseling. He does not have a primary care physician at this time. Recently was placed on Medicaid is still working out the details of insurance. 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 No exposures that he is aware of, no history of TB or asbestos. Past Medical History Past Medical History (Chronic Problems): Chronic Problems Liver cirrhosis (Chronic) History of tobacco abuse (Chronic) Pseudocyst Pancreatic Tail (Chronic) History of pancreatitis (Chronic) Type II diabetes mellitus (Chronic) History of alcohol use (Chronic) Obesity (Chronic) Dyslipidemia (Chronic) Allergies sulfamethoxazole [From Bactrim] Allergy (Verified 01/20/18 14:04) Hives trimethoprim [From Bactrim] Allergy (Verified 01/20/18 14:04) Hives Home Medications: Ambulatory Orders Medication Instructions Recorded Albuterol IH (ProAir) [Proair Hfa 2 puff INHALATION Q4H PRN 01/20/18 (SP)Vent Pts] Cholecalciferol (VIT D3) [Vitamin 1 tablet PO DAILY 01/20/18 D3] Gabapentin [Neurontin] 100 capsule PO TID 01/20/18 Ibuprofen 3 tablet PO PRN PRN 01/20/18 Insulin Aspart [Novolog Flexpen See Protocol SC TIDCM 01/20/18 ([facility])] Insulin Glargine,Hum.rec.anlog 35 units SQ DAILY 01/20/18 [Basaglar Kwikpen U-100] Metformin HCl [Glucophage] 1 tablet PO BID 01/20/18 Surgical History: noncontributory Psychiatric History: No pertinent psych hx Lives: With Family Smoking Status: Light Smoker (<10/day) Tobacco Use: Cigarettes - Minimum [id number] history Alcohol: Occasional Drugs: - - Denies current use - *Family History Maternal History Items: Heart Disease Paternal History Items: Diabetes Review of Systems Constitutional: Reports: Weakness, Fatigue. Denies: Anorexia, Chills, Fever, Night Sweats, Malaise, Weight Change Eyes: Denies: Vision Change HEENT: Reports: Post Nasal Drip. Denies: Difficulty Swallowing, Head Aches, Nasal Congestion, Sinus Congestion, Sinus Drainage, Sore Throat Cardiovascular: Reports: Edema - Chronic bilateral lower extremities, Light Headedness - Chronic vertigo. Denies: Chest Pain, Chest Tightness, Orthopnea, Palpitations, Paroxysmal Noc. Dyspnea, Syncope Gastrointestinal: Reports: Dyspepsia. Denies: Abdominal Pain, Constipation, Diarrhea, Hematemesis, Hematochezia, Nausea, Melena, Vomiting Genitourinary: Reports: Retention. Denies: Dysuria, Frequency, Hematuria, Nocturia Musculoskeletal: Reports: Back Pain - Chronic Skin: Reports: Dryness. Denies: Rash, Wounds Neurological: Reports: Balance problems, Numbness, Tingling, Tremor. Denies: Change in Speech, Confusion, Difficulty swallowing, Focal weakness, Seizures Psychiatric: Reports: Anxiety. Denies: Depression, Suicidal Ideations Endocrine: Denies: Change in Body Habitus, Polydipsia, Polyuria Hematologic/ Lymphatic: Reports: Anemia, Easy Bruising, Easy Bleeding. Denies: Adenopathy Patient Problems: Active and Suspected Problems Pleural effusion, bilateral (Acute) Pleural effusion (Acute) Subjective: Patient was seen and examined. He is sitting up in bed eating breakfast, no acute distress. Nursing staff reports no acute events overnight. Denies any current shortness of breath, abdominal pain, nausea, vomiting, or diarrhea. He does still feel bloated but this is also improved. Objective: Clinical Impression(s) from Imaging Studies Abdomen/Pelvis CT 01/20/18 09:11 IMPRESSION: 1. Marked reduction in the size of the cyst in the tail the pancreas. This formerly measured 7.8 x 6.7 x 7.1 cm. There is been interval calcification of the rim of the cyst. 2. Hepatomegaly. There is prominence of the portal veins marked atresia of the splenic vein and distended mesenteric vessels and varices along the lesser curvature of the stomach. Findings are consistent with cirrhosis. 3. Evidence of remote splenic injury. 4. Bilateral pleural effusions and atelectasis not seen on the previous study. 5. Mild anasarca. 6. Collapsed thick-walled gallbladder. BE secondary to liver disease. Electronically Signed: Dusty Best DO at 12:03 EDT Tel [phone], Service support , Chest X-Ray 01/20/18 09:12 IMPRESSION: Question right basilar infiltrate. Electronically Signed: Dusty Best DO at 10:53 EDT Tel [phone], Service support , - Physical Exam General: Alert, Oriented x3, Cooperative, No apparent distress, Well developed, - - No conversational dyspnea HEENT: Atraumatic, PERRLA, Normocephalic Oral: Moist Mucosa, No Gingival or Mucosal Lesions/ Ulcerations, - - Poor dentition Neck: Supple, No JVD, No Nodes, Trachea Midline Lungs: - - Diminished right mid to base, some dullness to percussion to the right base. Left lung is clear. No rales or wheezing Cardiovascular: Regular rate, Regular Rhythm, Normal S1, Normal S2, No murmurs, No rub noted, No Gallop Abdomen: Bowel Sounds Present, Soft, Non Tender, Passing Flatus, Distended, Obese Extremities: No clubbing, No cyanosis, No edema, - - Peripheral vascular changes Skin: No breakdown Musculoskeletal: No Tenderness to Palpation of Joints or Extremities Lymphatic: - - No significant adenopathy Neurological: Cranial nerves II-XII grossly intact, Motor Exam 5/5 strength throughout, - - Upper extremity tremor present, especially with extension of the arms Psych/Mental Status: Normal Affect, Appropriate, - - Alert and oriented Vital Signs Temp Pulse Resp BP Pulse Ox 97.8 F 67 14 126/84 H 98 01/21/18 08:43 01/21/18 08:43 01/21/18 08:43 01/21/18 08:43 01/21/18 08:43 Oxygen Delivery Method Room Air Weight: 191 lb 3.2 oz Body Mass Index (BMI) 26.6 Intake and Output for Last 24 Hours 01/19/18 01/20/18 01/21/18 23:59 23:59 23:59 Intake Total 400 / 400 640 / 640 Balance 400 / 400 640 / 640 Laboratory Tests Past 24 Hrs 01/20/18 01/21/18 01/21/18 15:20 05:15 05:15 WBC RBC Hgb Hct MCV MCH MCHC RDW RDW Differential Plt Count MPV Immature Gran % (Auto) Neut % (Auto) Lymph % (Auto) [place] % (Auto) Eos % (Auto) Baso % (Auto) Absolute Neuts (auto) Absolute Lymphs (auto) Total Counted PT 12.8 INR 1.0 APTT 27.7 Sodium Potassium Chloride Carbon Dioxide Anion Gap BUN Creatinine Estim Creat Clear Calc Est GFR (MDRD) Af Amer Est GFR (MDRD) Non-Af BUN/Creatinine Ratio Glucose Calcium Iron 48 L TIBC 257 Iron Saturation 18.7 Vitamin B12 Pending 01/21/18 01/21/18 05:15 05:15 WBC 5.1 RBC 2.79 L Hgb 9.0 L Hct 27.2 L MCV 97.5 H MCH 32.3 H MCHC 33.1 RDW 14.9 H RDW Differential 48.8 H Plt Count 282 MPV 9.4 Immature Gran % (Auto) 0.400 Neut % (Auto) 53.0 Lymph % (Auto) 33.3 [place] % (Auto) 8.6 Eos % (Auto) 2.7 Baso % (Auto) 2.0 H Absolute Neuts (auto) 2.7 Absolute Lymphs (auto) 1.70 Total Counted Not Reportable PT INR APTT Sodium 143 Potassium 4.6 Chloride 109 H Carbon Dioxide 28.0 Anion Gap 6 BUN 11 Creatinine 0.61 L Estim Creat Clear Calc 169.73 Est GFR (MDRD) Af Amer 187 Est GFR (MDRD) Non-Af 155 BUN/Creatinine Ratio 18.0 Glucose 51 L Calcium 7.7 L Iron TIBC Iron Saturation Vitamin B12 POC Glucose 06/01/21/18 01/21/18 08:58 08:29 06:07 POC Glucose 113 H 71 94 01/21/18 01/20/18 01/20/18 05:21 22:30 17:20 POC Glucose 60 L 168 H 226 H 01/20/18 15:23 POC Glucose 97 Assessment/Plan All Active Problems Pleural effusion, bilateral (Acute) Pleural effusion (Acute) RECOMMENDATIONS 1. Supplemental oxygen to keep saturations greater than 90% 2. Encourage incentive spirometer 3. Mobilize 4. Initiate alcohol withdrawal protocol if remains hospitalized 5. Ambulatory pulse ox prior to discharge 6. Patient should follow-up in the pulmonary clinic in 2 weeks with [facility], he will require repeat imaging in 6-8 weeks to reassess pleural effusions IMPRESSIONS 1. Pleural effusions/shortness of breath Effusions not observed on plain film chest x-ray, however incidental finding on abdominal CT. BNP elevated. Reports chronic lower extremity edema. Denies previous history of echocardiogram or cardiac workup, however echocardiogram in 2013 showed an estimated EF of 65%, normal LV size and systolic function. Patient is currently asymptomatic with the exception of some dyspnea on exertion that has been present for several months. He is currently awaiting disability. There was a question if thoracentesis would be beneficial at this time. I suspect with fluid analysis, would be a transudate given his history of pancreatitis. Patient can likely follow-up as an outpatient and have repeat imaging in 6-8 weeks to reassess his pleural effusions. In the meantime, he was advised to contact our office or go to the ER if his symptoms again developed, including increased shortness of breath, chest pain, wheezing. 2. Tobacco abuse Patient continues to smoke, has a significant past smoking history. He has weaned himself down to approximately 2 or 3 cigarettes a day. Encouraged smoking cessation. 3. History of pancreatitis/type 2 diabetes/alcohol abuse/obesity/dyslipidemia/chronic anemia/hyperkalemia Complicates care, management, recovery, and prognosis. Patient was advised to abstain from alcohol use. He declines offer to set up counseling at this time. Hemoglobin has steadily declined over the past 5 years. The patient has never had any sort of workup for his anemia. Advised him to establish a PCP so his comorbidities can be followed over time. He does have some mild tremors, reports last drink 2 weeks ago. If he remains in the hospital, should initiate withdrawal protocol. Hyperkalemia has resolved. Thank you for the opportunity to participate in this patient's care, please do not hesitate to contact us with any further questions or concerns. This note was generated with [email or web address] dictation software. It may contain incorrect words, spelling, and punctuation that were not noted in checking the note before signing.
--- NOTE | 2018-01-21 09:59 | CON.PCM_ITS ---
Problem List (1) Pleural effusion Status: Acute (2) Liver cirrhosis Status: Chronic (3) History of tobacco abuse Status: Chronic (4) History of pancreatitis Status: Chronic (5) Type II diabetes mellitus Status: Chronic (6) History of alcohol use Status: Chronic (7) Obesity Status: Chronic (8) Dyslipidemia Status: Chronic Reason for Consult Date of Consultation: 01/21/18 Reason for Consultation: pleural effusion History of Present Illness: The patient is a 42 year old M with a past medical history of pancreatitis, alcohol and drug abuse, diagnosed with liver cirrhosis in August 2017, presented to the ED on 01/20/18 with complaints of abdominal bloating with pain and shortness of breath for the last few days. The patient did have some chest pain as well after eating, which has since resolved. This was new for him so he decided to go to the ED at the urging of his mother. Denies any fever, chills, or night sweats. He has not had any recent weight loss. Denies any cough or sputum production. No hemoptysis. No history of swallowing difficulties. Denies any orthopnea or paroxysmal nocturnal dyspnea. Patient complains of chronic vertigo. Denies any history of bleeding in his urine or stool. His vitals were stable on arrival, BP 122/77, pulse 87, RR 20, 97.6?F, and 100% on room air. Initial blood work showed no leukocytosis, hemoglobin was 9.1 and hematocrit 27.3, platelets were normal. Coags were normal. Potassium was mildly elevated at 5.3, BUN of 12 and creatinine 0.69. AST 59 and ALT 49. BNP was elevated at 516. Total protein 6.3 and albumin 2.9. Plain film chest x-ray revealed an increase in density of the right lung base with questionable infiltrate. There is no demonstrated pleural abnormality. Due to the abdominal discomfort, a CT of the abdomen and pelvis was obtained and revealed marked reduction in the size of the cyst in the tail of pancreas, hepatomegaly, findings consistent with cirrhosis, evidence of remote splenic injury, bilateral pleural effusions and atelectasis, mild anasarca, and collapsed thick-walled gallbladder. The patient was given a fluid bolus and extra strength Tylenol and admitted to the medical surgical floor for further evaluation and management. Pulmonary was consulted for the pleural effusions with questionable need for thoracentesis. The patient has maintained appropriate saturations on room air. He is currently not complaining of any more shortness of breath, chest pain, cough, sputum production, nausea, vomiting, or diarrhea. He denies any hemoptysis. No recent weight loss, night sweats, or nocturia. Patient does have a significant past smoking history, at minimum 25 pack years. He also has tried several different types of drugs but would not elaborate. Denies any recent use in the last year. He had pneumonia once before, however this was several years ago. He does think he had fluid in his lungs at one point as well that required a diuretic. Patient has never had any formal pulmonary workup or seen a appraisal coordinator. Denies any family or personal history of cancer. He has not had a colonoscopy before. Reports he still drinks, but not as heavy as he used to. His last drink was approximately 2 weeks ago, states he typically drinks 1/5 of vodka twice a week. He has never been in any rehab facilities. Reports remote past history of counseling. He does not have a primary care physician at this time. Recently was placed on Medicaid is still working out the details of insurance. 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 No exposures that he is aware of, no history of TB or asbestos. Past Medical History Past Medical History (Chronic Problems): Chronic Problems Liver cirrhosis (Chronic) History of tobacco abuse (Chronic) Pseudocyst Pancreatic Tail (Chronic) History of pancreatitis (Chronic) Type II diabetes mellitus (Chronic) History of alcohol use (Chronic) Obesity (Chronic) Dyslipidemia (Chronic) Allergies sulfamethoxazole [From Bactrim] Allergy (Verified 01/20/18 14:04) Hives trimethoprim [From Bactrim] Allergy (Verified 01/20/18 14:04) Hives Home Medications: Ambulatory Orders Medication Instructions Recorded Albuterol IH (ProAir) [Proair Hfa 2 puff INHALATION Q4H PRN 01/20/18 (SP)Vent Pts] Cholecalciferol (VIT D3) [Vitamin 1 tablet PO DAILY 01/20/18 D3] Gabapentin [Neurontin] 100 capsule PO TID 01/20/18 Ibuprofen 3 tablet PO PRN PRN 01/20/18 Insulin Aspart [Novolog Flexpen See Protocol SC TIDCM 01/20/18 ([facility])] Insulin Glargine,Hum.rec.anlog 35 units SQ DAILY 01/20/18 [Basaglar Kwikpen U-100] Metformin HCl [Glucophage] 1 tablet PO BID 01/20/18 Surgical History: noncontributory Psychiatric History: No pertinent psych hx Lives: With Family Smoking Status: Light Smoker (<10/day) Tobacco Use: Cigarettes - Minimum [id number] history Alcohol: Occasional Drugs: - - Denies current use - *Family History Maternal History Items: Heart Disease Paternal History Items: Diabetes Review of Systems Constitutional: Reports: Weakness, Fatigue. Denies: Anorexia, Chills, Fever, Night Sweats, Malaise, Weight Change Eyes: Denies: Vision Change HEENT: Reports: Post Nasal Drip. Denies: Difficulty Swallowing, Head Aches, Nasal Congestion, Sinus Congestion, Sinus Drainage, Sore Throat Cardiovascular: Reports: Edema - Chronic bilateral lower extremities, Light Headedness - Chronic vertigo. Denies: Chest Pain, Chest Tightness, Orthopnea , Palpitations, Paroxysmal Noc. Dyspnea, Syncope Gastrointestinal: Reports: Dyspepsia. Denies: Abdominal Pain, Constipation, Diarrhea, Hematemesis, Hematochezia, Nausea, Melena, Vomiting Genitourinary: Reports: Retention. Denies: Dysuria, Frequency, Hematuria, Nocturia Musculoskeletal: Reports: Back Pain - Chronic Skin: Reports: Dryness. Denies: Rash, Wounds Neurological: Reports: Balance problems, Numbness, Tingling, Tremor. Denies: Change in Speech, Confusion, Difficulty swallowing, Focal weakness, Seizures Psychiatric: Reports: Anxiety. Denies: Depression, Suicidal Ideations Endocrine: Denies: Change in Body Habitus, Polydipsia, Polyuria Hematologic/ Lymphatic: Reports: Anemia, Easy Bruising, Easy Bleeding. Denies: Adenopathy Patient Problems: Active and Suspected Problems Pleural effusion, bilateral (Acute) Pleural effusion (Acute) Subjective: Patient was seen and examined. He is sitting up in bed eating breakfast, no acute distress. Nursing staff reports no acute events overnight. Denies any current shortness of breath, abdominal pain, nausea, vomiting, or diarrhea. He does still feel bloated but this is also improved. Objective: Clinical Impression(s) from Imaging Studies Abdomen/Pelvis CT 01/20/18 09:11 IMPRESSION: 1. Marked reduction in the size of the cyst in the tail the pancreas. This formerly measured 7.8 x 6.7 x 7.1 cm. There is been interval calcification of the rim of the cyst. 2. Hepatomegaly. There is prominence of the portal veins marked atresia of the splenic vein and distended mesenteric vessels and varices along the lesser curvature of the stomach. Findings are consistent with cirrhosis. 3. Evidence of remote splenic injury. 4. Bilateral pleural effusions and atelectasis not seen on the previous study. 5. Mild anasarca. 6. Collapsed thick-walled gallbladder. BE secondary to liver disease. Electronically Signed: Dusty Best DO at 12:03 EDT Tel [phone], Service support , Chest X-Ray 01/20/18 09:12 IMPRESSION: Question right basilar infiltrate. Electronically Signed: Dusty Best DO at 10:53 EDT Tel [phone], Service support , - Physical Exam General: Alert, Oriented x3, Cooperative, No apparent distress, Well developed, - - No conversational dyspnea HEENT: Atraumatic, PERRLA, Normocephalic Oral: Moist Mucosa, No Gingival or Mucosal Lesions/ Ulcerations, - - Poor dentition Neck: Supple, No JVD, No Nodes, Trachea Midline Lungs: - - Diminished right mid to base, some dullness to percussion to the right base. Left lung is clear. No rales or wheezing Cardiovascular: Regular rate, Regular Rhythm, Normal S1, Normal S2, No murmurs, No rub noted, No Gallop Abdomen: Bowel Sounds Present, Soft, Non Tender, Passing Flatus, Distended, Obese Extremities: No clubbing, No cyanosis, No edema, - - Peripheral vascular changes Skin: No breakdown Musculoskeletal: No Tenderness to Palpation of Joints or Extremities Lymphatic: - - No significant adenopathy Neurological: Cranial nerves II-XII grossly intact, Motor Exam 5/5 strength throughout, - - Upper extremity tremor present, especially with extension of the arms Psych/Mental Status: Normal Affect, Appropriate, - - Alert and oriented Vital Signs Temp Pulse Resp BP Pulse Ox 97.8 F 67 14 126/84 H 98 01/21/18 08:43 01/21/18 08:43 01/21/18 08:43 01/21/18 08:43 01/21/18 08:43 Oxygen Delivery Method Room Air Weight: 191 lb 3.2 oz Body Mass Index (BMI) 26.6 Intake and Output for Last 24 Hours 01/19/18 01/20/18 01/21/18 23:59 23:59 23:59 Intake Total 400 / 400 640 / 640 Balance 400 / 400 640 / 640 Laboratory Tests Past 24 Hrs 01/20/18 01/21/18 01/21/18 15:20 05:15 05:15 WBC RBC Hgb Hct MCV MCH MCHC RDW RDW Differential Plt Count MPV Immature Gran % (Auto) Neut % (Auto) Lymph % (Auto) [place] % (Auto) Eos % (Auto) Baso % (Auto) Absolute Neuts (auto) Absolute Lymphs (auto) Total Counted PT 12.8 INR 1.0 APTT 27.7 Sodium Potassium Chloride Carbon Dioxide Anion Gap BUN Creatinine Estim Creat Clear Calc Est GFR (MDRD) Af Amer Est GFR (MDRD) Non-Af BUN/Creatinine Ratio Glucose Calcium Iron 48 L TIBC 257 Iron Saturation 18.7 Vitamin B12 Pending 01/21/18 01/21/18 05:15 05:15 WBC 5.1 RBC 2.79 L Hgb 9.0 L Hct 27.2 L MCV 97.5 H MCH 32.3 H MCHC 33.1 RDW 14.9 H RDW Differential 48.8 H Plt Count 282 MPV 9.4 Immature Gran % (Auto) 0.400 Neut % (Auto) 53.0 Lymph % (Auto) 33.3 [place] % (Auto) 8.6 Eos % (Auto) 2.7 Baso % (Auto) 2.0 H Absolute Neuts (auto) 2.7 Absolute Lymphs (auto) 1.70 Total Counted Not Reportable PT INR APTT Sodium 143 Potassium 4.6 Chloride 109 H Carbon Dioxide 28.0 Anion Gap 6 BUN 11 Creatinine 0.61 L Estim Creat Clear Calc 169.73 Est GFR (MDRD) Af Amer 187 Est GFR (MDRD) Non-Af 155 BUN/Creatinine Ratio 18.0 Glucose 51 L Calcium 7.7 L Iron TIBC Iron Saturation Vitamin B12 POC Glucose 06/01/21/18 01/21/18 08:58 08:29 06:07 POC Glucose 113 H 71 94 01/21/18 01/20/18 01/20/18 05:21 22:30 17:20 POC Glucose 60 L 168 H 226 H 01/20/18 15:23 POC Glucose 97 Assessment/Plan All Active Problems Pleural effusion, bilateral (Acute) Pleural effusion (Acute) RECOMMENDATIONS 1. Supplemental oxygen to keep saturations greater than 90% 2. Encourage incentive spirometer 3. Mobilize 4. Initiate alcohol withdrawal protocol if remains hospitalized 5. Ambulatory pulse ox prior to discharge 6. Patient should follow-up in the pulmonary clinic in 2 weeks with BUSINESS COMMUNICATIONS INSTRUCTOR, he will require repeat imaging in 6-8 weeks to reassess pleural effusions IMPRESSIONS 1. Pleural effusions/shortness of breath Effusions not observed on plain film chest x-ray, however incidental finding on abdominal CT. BNP elevated. Reports chronic lower extremity edema. Denies previous history of echocardiogram or cardiac workup, however echocardiogram in 2013 showed an estimated EF of 65%, normal LV size and systolic function. Patient is currently asymptomatic with the exception of some dyspnea on exertion that has been present for several months. He is currently awaiting disability. There was a question if thoracentesis would be beneficial at this time. I suspect with fluid analysis, would be a transudate given his history of pancreatitis. Patient can likely follow-up as an outpatient and have repeat imaging in 6-8 weeks to reassess his pleural effusions. In the meantime, he was advised to contact our office or go to the ER if his symptoms again developed, including increased shortness of breath, chest pain, wheezing. 2. Tobacco abuse Patient continues to smoke, has a significant past smoking history. He has weaned himself down to approximately 2 or 3 cigarettes a day. Encouraged smoking cessation. 3. History of pancreatitis/type 2 diabetes/alcohol abuse/obesity/dyslipidemia/ chronic anemia/hyperkalemia Complicates care, management, recovery, and prognosis. Patient was advised to abstain from alcohol use. He declines offer to set up counseling at this time. Hemoglobin has steadily declined over the past 5 years. The patient has never had any sort of workup for his anemia. Advised him to establish a PCP so his comorbidities can be followed over time. He does have some mild tremors, reports last drink 2 weeks ago. If he remains in the hospital, should initiate withdrawal protocol. Hyperkalemia has resolved. Thank you for the opportunity to participate in this patient's care, please do not hesitate to contact us with any further questions or concerns. This note was generated with [employer] dictation software. It may contain incorrect words, spelling, and punctuation that were not noted in checking the note before signing.
[2018-01-21] MEDS: Insulin Lispro 100 UNIT/ML INSULN.PEN SC (12:34)
[2018-01-21 12:35] LABS: Bedside Glucose 284 mg/dL (70-110)
[2018-01-21 14:23] VITALS: BP 147/95; PULSE 79; RESP 16; TEMP 36.8; O2SAT 100
--- NOTE | 2018-01-21 16:35 | PCM.DC ---
- Discharge Diagnoses Current Active Problems: Current Active and Chronic Problems Pleural effusion (Acute) Liver cirrhosis (Chronic) You will use the following diet at home:: Calorie/Carbohydrate Controlled (specify 1200, 1400, etc) - 1800 pura. Your food should be the consistency of: Regular Discharge Activity: Return to Normal Activity Weight Bearing Status: Full weight bearing Call your doctor if you observe: Fever of 101 or Higher, Shortness of breath, Dizziness, Fainting spells, Chest pain, Increased palpitations (irregular heartbeat), Uncontrolled pain Instructions: Understanding Cirrhosis, Discharge Instructions for Cirrhosis of the Liver Additional Instructions: He will need referral to gastroenterology for management of liver cirrhosis. Please ask your PCP for the referral Allergies/Adverse Reactions: Allergies sulfamethoxazole [From Bactrim] Allergy (Verified 01/20/18 14:04) Hives trimethoprim [From Bactrim] Allergy (Verified 01/20/18 14:04) Hives Medications to take at Discharge Albuterol IH (ProAir) [Proair Hfa] 2 puff INHALATION Q4H PRN 01/20/18 Cholecalciferol (VIT D3) [Vitamin D3] 1 tablet PO DAILY 01/20/18 Gabapentin [Neurontin] 100 capsule PO TID 01/20/18 Ibuprofen 3 tablet PO PRN PRN 01/20/18 Insulin Aspart [Novolog Flexpen] See Protocol SC TIDCM 01/20/18 Insulin Glargine,Hum.rec.anlog [Basaglar Kwikpen U-100] 35 units SQ DAILY 01/20/18 Metformin HCl [Glucophage] 1 tablet PO BID 01/20/18 Furosemide [Lasix] 40 mg PO DAILY #30 tab 01/21/18 The following prescriptions were given: Furosemide [Lasix] 40 mg PO DAILY #30 tab Primary Care Physician: Alejandra Montague [Primary Care Provider] - Please follow up with your Primary Care Physician in: 1 week. Please Follow Up With: Chinedu Rucker MD When: 2 weeks.
--- NOTE | 2018-01-21 16:38 | DCINST_ITS ---
- Discharge Diagnoses Current Active Problems: Current Active and Chronic Problems Pleural effusion (Acute) Liver cirrhosis (Chronic) You will use the following diet at home:: Calorie/Carbohydrate Controlled ( specify 1200, 1400, etc) - 1800 pura. Your food should be the consistency of: Regular Discharge Activity: Return to Normal Activity Weight Bearing Status: Full weight bearing Call your doctor if you observe: Fever of 101 or Higher, Shortness of breath, Dizziness, Fainting spells, Chest pain, Increased palpitations (irregular heartbeat), Uncontrolled pain Instructions: Understanding Cirrhosis, Discharge Instructions for Cirrhosis of the Liver Additional Instructions: He will need referral to gastroenterology for management of liver cirrhosis. Please ask your PCP for the referral Allergies/Adverse Reactions: Allergies sulfamethoxazole [From Bactrim] Allergy (Verified 01/20/18 14:04) Hives trimethoprim [From Bactrim] Allergy (Verified 01/20/18 14:04) Hives Medications to take at Discharge Albuterol IH (ProAir) [Proair Hfa] 2 puff INHALATION Q4H PRN 01/20/18 Cholecalciferol (VIT D3) [Vitamin D3] 1 tablet PO DAILY 01/20/18 Gabapentin [Neurontin] 100 capsule PO TID 01/20/18 Ibuprofen 3 tablet PO PRN PRN 01/20/18 Insulin Aspart [Novolog Flexpen] See Protocol [facility] TIDCM 01/20/18 Insulin Glargine,Hum.rec.anlog [Basaglar Kwikpen U-100] 35 units SQ DAILY Metformin HCl [Glucophage] 1 tablet PO BID 01/20/18 Furosemide [Lasix] 40 mg PO DAILY #30 tab 01/21/18 The following prescriptions were given: Furosemide [Lasix] 40 mg PO DAILY #30 tab Primary Care Physician: Alejandra Montague [Primary Care Provider] - Please follow up with your Primary Care Physician in: 1 week. Please Follow Up With: Chinedu Rucker MD When: 2 weeks.
[2018-01-21] MEDS: Furosemide 40 MG Tablet PO (16:43)
[2018-01-21 16:45] LABS: Bedside Glucose 130 mg/dL (70-110)
--- NOTE | 2018-01-21 16:52 | PCM.DC.SUM ---
Discharge Date and Diagnosis Date of Admission: 01/20/18 Date of Discharge: 01/21/18 - Primary Discharge Diagnosis Active and Suspected Problems #1 acute bilateral small pleural effusion, presumed to be due to transudative effusion secondary to liver cirrhosis. #2 abdominal pain/bloating, CT scan with chronic findings, no acute findings. - Secondary Discharge Diagnosis Chronic Problems Liver cirrhosis (Chronic) History of tobacco abuse (Chronic) Pseudocyst Pancreatic Tail (Chronic) History of pancreatitis (Chronic) Type II diabetes mellitus (Chronic) History of alcohol use (Chronic) Obesity (Chronic) Dyslipidemia (Chronic) Hospital Course and Treatment Imaging Results: Clinical Impression(s) from Imaging Studies Abdomen/Pelvis CT 01/20/18 09:11 IMPRESSION: 1. Marked reduction in the size of the cyst in the tail the pancreas. This formerly measured 7.8 x 6.7 x 7.1 cm. There is been interval calcification of the rim of the cyst. 2. Hepatomegaly. There is prominence of the portal veins marked atresia of the splenic vein and distended mesenteric vessels and varices along the lesser curvature of the stomach. Findings are consistent with cirrhosis. 3. Evidence of remote splenic injury. 4. Bilateral pleural effusions and atelectasis not seen on the previous study. 5. Mild anasarca. 6. Collapsed thick-walled gallbladder. BE secondary to liver disease. Electronically Signed: Dusty Best DO at 12:03 EDT Tel [phone], Service support , Chest X-Ray 01/20/18 09:12 IMPRESSION: Question right basilar infiltrate. Electronically Signed: Dusty Best DO at 10:53 EDT Tel [phone], Service support , Dr. Rucker, pulmonology. Operations: None Procedures: 2-D Echocardiogram, EKG Summary of Care Provided: The patient is a 42 year old M admitted because of abdominal bloating and shortness of breath and he was found to have bilateral pleural effusion on CT scan abdomen and he was admitted for evaluation. This bilateral pleural effusion is an incidental finding on CT scan abdomen that was done for abdominal bloating. It is not evident on plain chest x-ray. His vital signs and respiratory status was stable and he maintained his pulse ox normally on room air. His routine blood work was remarkable for chronic anemia, otherwise normal. His BNP was elevated. EKG reveals no acute ischemic changes. There was no evidence of acute CHF. 2D echocardiogram revealed ejection fraction of, RVSP 41 and no significant valvular heart disease. This bilateral pleural effusion attributed to transudative effusion secondary to liver cirrhosis. No interventions was performed. There was no indication for thoracentesis because of small size of pleural effusion and risk of pneumothorax and intra-abdominal organ injury. Pulmonology consulted and recommended to repeat chest x-ray in 2 weeks. Patient was started on Lasix. He was discharged home in a stable medical condition, discharged on Lasix 40 mg p.o. daily, continue his home medication without any changes, highly recommended to follow-up with PCP in 1 week, recommended referral to GI as outpatient, plan to follow-up with pulmonology in 2 weeks to repeat chest x-ray. Patient sounds in agreement and see understands. Discharge Activity: Return to Normal Activity Weight Bearing Status: Full weight bearing Call your doctor if you observe: Fever of 101 or Higher, Shortness of breath, Dizziness, Fainting spells, Chest pain, Increased palpitations (irregular heartbeat), Uncontrolled pain Home Medications: Medications to take at Discharge Albuterol IH (ProAir) [Proair Hfa] 2 puff INHALATION Q4H PRN 01/20/18 Cholecalciferol (VIT D3) [Vitamin D3] 1 tablet PO DAILY 01/20/18 Gabapentin [Neurontin] 100 capsule PO TID 01/20/18 Ibuprofen 3 tablet PO PRN PRN 01/20/18 Insulin Aspart [Novolog Flexpen] See Protocol [facility] TIDCM 01/20/18 Insulin Glargine,Hum.rec.anlog [Basaglar Kwikpen U-100] 35 units SQ DAILY 01/20/18 Metformin HCl [Glucophage] 1 tablet PO BID 01/20/18 Furosemide [Lasix] 40 mg PO DAILY #30 tab 01/21/18 Following Prescrptions Were Given to Patient: Furosemide [Lasix] 40 mg PO DAILY #30 tab Primary Care Physician: Alejandra Montague [Primary Care Provider] - Please follow up with your Primary Care Physician in: 1 week. Please Follow Up With: Chinedu Rucker MD When: 2 weeks. Patient Instructions: Understanding Cirrhosis, Discharge Instructions for Cirrhosis of the Liver Disposition: Home Minutes spent on discharge:: 26 Patient Condition:: Stable Medical Necessity - Tobacco Use Smoking Status: Light Smoker (<10/day) Tobacco Use: Cigarettes - Minimum 77-ocex-edwk history Meaningful Use Info Meaningful Use Diagnoses (Choose all that apply): None applicable Code Visit OBSV E&M: 39009 Observation care discharge
[2018-01-22 10:17] LABS: Vitamin B12 395 pg/mL (211-911)
== END 2018-01-21 18:31 | disposition home or self-care (01) ==
LOC: ED 09:29 → MS3 14:52
PROVIDERS: Internal Medicine Critical Care Medicine; Admitting Provider Internal Medicine; Emergency Provider Emergency Medicine; Visit Provider Hospitalist
DX: J90 Pleural effusion, not elsewhere classified (principal); K74.60 Unspecified cirrhosis of liver; E11.9 Type 2 diabetes mellitus without complications; E78.5 Hyperlipidemia, unspecified; R10.84 Generalized abdominal pain; F17.210 Nicotine dependence, cigarettes, uncomplicated; D64.9 Anemia, unspecified; R14.0 Abdominal distension (gaseous); F10.10 Alcohol abuse, uncomplicated; E87.5 Hyperkalemia; Z79.899 Other long term (current) drug therapy; Z79.4 Long term (current) use of insulin
CPT/HCPCS: 71045; 74177; 80048; 80053; 82607; 82962; 83540; 83550; 83690; 83880; 85025; 85610; 85730; 93005; 93306; 96374; 96376; 97802; 99218; 99282; 99406; J7040; Q9967; A4216; G0378

== ENCOUNTER → 2018-02-14 11:00 | Outpatient (CLI) | payer MEDICAID, SELFPAY ==
--- NOTE | 2018-02-23 17:36 | LEAS ---
Arterial Study - Arterial Study Arterial Study: This is a 42-year-old male with a history of smoking, diabetes mellitus, and hyperlipidemia. The patient presents with bilateral lower extremity pain. Suspecting the presence of atherosclerotic peripheral arterial occlusive disease, the patient was brought to the noninvasive vascular laboratory at this time for the purpose of bilateral noninvasive lower extremity arterial assessment. Doppler signal assessment was used to evaluate the pulses at ankle level bilaterally. The posterior tibial and dorsalis pedis pulses were triphasic bilaterally. Segmental limb pressures were obtained bilaterally. The right ankle pressure, as determined by posterior tibial pulse, was measured at 124 mmHg. The right ankle pressure, as determined by dorsalis pedis pulse, was measured at 131 mmHg. The right digital pressure was measured at 78 mmHg. The left ankle pressure, as determined by posterior tibial pulse, was measured at 126 mmHg. The left ankle pressure, as determined by dorsalis pedis pulse, was measured at 123 mmHg. The left digital pressure was measured at 128 mmHg. Pulse-volume recordings were obtained bilaterally and segmentally. Waveform amplitudes appeared to be satisfactory at all levels bilaterally, including low thigh, calf, ankle, and digital levels. Resting ankle-brachial indices were calculated bilaterally. The resting right ankle-brachial index was calculated to be 1.17. The resting left ankle-brachial index was calculated to be 1.13. Digital-brachial indices were calculated bilaterally. The right digital-brachial index was calculated to be 0.70. The left digital-brachial index was calculated to be 1.14. Impression: Based upon the findings of this resting noninvasive lower extremity arterial study, arterial perfusion to ankle level appears to be relatively normal bilaterally. Triphasic waveforms are noted in ankle level bilaterally. Resting ankle-brachial indices are bilaterally normal. The right digital-brachial index is low-normal. The left digital-brachial index is normal.
--- NOTE | 2018-02-23 17:44 | LEAS_ITS ---
Arterial Study - Arterial Study Arterial Study: This is a 42-year-old male with a history of smoking, diabetes mellitus, and hyperlipidemia. The patient presents with bilateral lower extremity pain. Suspecting the presence of atherosclerotic peripheral arterial occlusive disease , the patient was brought to the noninvasive vascular laboratory at this time for the purpose of bilateral noninvasive lower extremity arterial assessment. Doppler signal assessment was used to evaluate the pulses at ankle level bilaterally. The posterior tibial and dorsalis pedis pulses were triphasic bilaterally. Segmental limb pressures were obtained bilaterally. The right ankle pressure, as determined by posterior tibial pulse, was measured at 124 mmHg. The right ankle pressure, as determined by dorsalis pedis pulse, was measured at 131 mmHg. The right digital pressure was measured at 78 mmHg. The left ankle pressure, as determined by posterior tibial pulse, was measured at 126 mmHg. The left ankle pressure, as determined by dorsalis pedis pulse, was measured at 123 mmHg. The left digital pressure was measured at 128 mmHg. Pulse-volume recordings were obtained bilaterally and segmentally. Waveform amplitudes appeared to be satisfactory at all levels bilaterally, including low thigh, calf, ankle, and digital levels. Resting ankle-brachial indices were calculated bilaterally. The resting right ankle-brachial index was calculated to be 1.17. The resting left ankle- brachial index was calculated to be 1.13. Digital-brachial indices were calculated bilaterally. The right digital- brachial index was calculated to be 0.70. The left digital-brachial index was calculated to be 1.14. Impression: Based upon the findings of this resting noninvasive lower extremity arterial study, arterial perfusion to ankle level appears to be relatively normal bilaterally. Triphasic waveforms are noted in ankle level bilaterally. Resting ankle-brachial indices are bilaterally normal. The right digital- brachial index is low-normal. The left digital-brachial index is normal.
== END ==
DX: E11.40 Type 2 diabetes mellitus with diabetic neuropathy, unspecified (principal)
CPT/HCPCS: 93923

== ENCOUNTER → 2018-06-16 16:32 | Outpatient (CLI) | payer MEDICAID, SELFPAY ==
[2018-06-22 16:06] LABS: Comment 2b (.)
[2018-07-08 13:48] LABS: Hepatitis C Genotype 2b
== END ==
PROVIDERS: Referring Provider Nurse Practitioner Family
DX: B18.2 Chronic viral hepatitis C (principal)
CPT/HCPCS: 36415; 87902

== ENCOUNTER 2018-09-03 15:58 | Emergency (ER) | payer MEDICAID, SELFPAY ==
[2018-09-03 15:58] VITALS: BP 148/94; PULSE 92; RESP 20; TEMP 36.7; O2SAT 100; BMI 25.7
[2018-09-03 16:06] VITALS: BP 146/108; PULSE 84; RESP 15; O2SAT 100
--- NOTE | 2018-09-03 16:14 | EKG12_ITS ---
Test Reason : SOB Blood Pressure : / mmHG Vent. Rate : 074 BPM Atrial Rate : 074 BPM P-R Int : 144 ms QRS Dur : 084 ms QT Int : 378 ms P-R-T Axes : 067 061 032 degrees QTc Int : 419 ms Normal sinus rhythm Normal ECG Confirmed by SARAI RUIZ, YVONNE ([id number]), metropolitan editor CORBY MITCHELL ([id number]) on 09/08/2018 9:41:41 AM Referred By: BARRETT Confirmed By:YVONNE MOON MD
[2018-09-03 16:29] VITALS: PULSE 81; RESP 22
[2018-09-03] MEDS: Albuterol 2.5 MG/3 ML VIAL.NEB. INHALATION (16:29)
--- NOTE | 2018-09-03 16:40 | RAD_ITS ---
STUDY: X-RAY CHEST REASON FOR EXAM: Male, 43 years old. Shortness of breath. TECHNIQUE: PA and lateral views of the chest. COMPARISON: August 13, 2014 and January 20, 2018 FINDINGS: There is no new focal consolidation. Normal size heart. Normal mediastinum and mc. Normal visualized pulmonary arteries. Normal visualized aortic arch and descending thoracic aorta. There are diffuse degenerative changes of the visualized thoracic spine. Normal visualized ribs, clavicles, and shoulders. There is no demonstrated abnormality of the visualized soft tissue structures of the upper abdomen. RAD/Chest PA and Lateral IMPRESSION: No acute cardiopulmonary process. Electronically Signed: Larissa Perea MD at 17:34 EST Tel , Service support ,
[2018-09-03 16:44] LABS: Absolute Lymphocyte Count 2.16 X10^3/ul (0.83-4.51); Absolute Neutrophil Count 3.4 X10^3/uL (2.0-7.7); Basophil# 0.08 X10^3/uL; Basophil% 1.2 % (0-1); Eosinophil# 0.26 X10^3/uL; Eosinophils% 3.9 % (0-5); Hematocrit 37.3 % (40-54); Hemoglobin 12.4 g/dl (13.0-16.5); Lymphocyte # 2.16 X10^3/ul (4.0); Lymphocyte % 32.7 % (19-41); Mean Corp Hgb Conc 33.2 g/gl (32-36); Mean Corpuscular Hgb 30.4 pg (27.0-32.0); Mean Corpuscular Volume 91.4 fL (80-94); Mean Platelet Vol. 10.2 fl (6.2-12.0); Monocyte# 0.71 X10^3/uL; Monocyte% 10.8 % (0-10); Neutrophil # 3.38 X10^3/uL (2.7-7.7); Neutrophil % 51.2 % (47-70); Platelet Count 285 K/mm3 (150-450); RBC Distribution Width CV 13.2 % (11.6-14.6); RBC Distribution Width SD 43.5 fl (35.1-43.9); Red Blood Count 4.08 M/mm3 (4.6-6.2); White Blood Count 6.6 K/mm3 (4.4-11.0)
[2018-09-03 16:51] LABS: POSITIVE COUNT NO; POSITIVE DIFFERENTIAL NO; POSITIVE MORPHOLOGY NO
[2018-09-03 17:02] LABS: Anion Gap 5 (5-15); BUN 17 mg/dL (7-18); BUN/Creat Ratio 17.1 RATIO (10-20); Calcium,Total 8.9 mg/dL (8.5-10.1); Chloride 105 mmol/L (98-107); Creatinine, Serum 0.99 mg/dL (0.70-1.30); EST Glomerular Filtration Rate 88 mL/min (>60); Est Glom Filt Rate - Afr Amer 106 mL/min (>60); Estimated Creatinine Clearance 103.53 ml/min; Glucose 109 mg/dL (74-106); Potassium 4.3 mmol/L (3.5-5.1); Sodium Level 135 mmol/L (136-145)
[2018-09-03 17:03] VITALS: BP 139/96; PULSE 84; RESP 14; TEMP 36.6; O2SAT 99
--- NOTE | 2018-09-03 17:06 | ED.VISSUMM ---
- ER Visit Summary Date of Service: 09/03/18 Chief Complaint: Shortness of breath History of Present Illness: The patient is a 43 M who goes to the [facility]. He has a history of asthma. He does smoke. He does not have a diagnosis of COPD. Reports her shortness of breath began 3 days ago. Is gradually gotten worse. It is mild at rest and moderate at worst. However, he reports it is worsened by nothing including exertion, laying flat, or coughing. He does have an inhaler that is empty. However, he reports he has not been wheezing. Patient denies a cough or fever. He denies chest pain. No ankle swelling or calf pain. No personal family history of DVT. No recent travel. Physical Examination: Vitals: Stable. Afebrile. General: Well-nourished and well-developed. Head: Normocephalic atraumatic. Neck: Supple, no lymphadenopathy. No JVD. Nontender. Cardiovascular: Regular rate and rhythm. No murmurs. Respiratory: No respiratory distress. Clear to auscultation bilaterally. Abdominal: Soft, nontender, nondistended, normal bowel sounds. No guarding, rebound, or peritoneal signs. Back: Nontender. Extremities: Nontender, no edema. Skin: Normal color, no rash. Neurologic: Alert and oriented ?3. Cranial nerves II through XII are intact. Normal strength and sensation. Psych: Normal affect. Test Results: Chest x-ray shows chronic changes and no acute disease. EKG is sinus at 74th T wave inversion in lead III. However, this is unchanged from January 20, 2018. Troponin is negative. Chem-7 is marked for sodium 135 and glucose 109. CBC is marked for an H&H 12.4 37.3 and monocytes of 11. Emergency Department Course and Treatment: Patient was treated with an albuterol aerosol. Despite the fact that he is not wheezing his dyspnea completely resolved from this. Treatment Plan: Patient will be discharged with albuterol MDI. Instructed to follow-up with vital instructions clinic in 1-2 days if not improving. At this time I do not think that putting him on steroids is indicated. Return to the emergency department for any worsening symptoms. Disposition: To home in improved and stable condition. Impression: 1. Dyspnea. 2. History of asthma. 3. Tobacco abuse. This note was generated with Dragon dictation software. It may contain incorrect words, spelling, and punctuation that were not noted in review of the chart prior to signing ED Disposition - Plan for ED Patient: Instructions: ED Dyspnea Shortness of Breath Prescriptions: Albuterol Inhaler [Ventolin Hfa] 2 puff INHALATION Q4H PRN PRN #1 inhaler PRN Reason: Wheezing Referrals: Isidro Bahena,[facility] [Primary Care Provider] - 1-2 Days if not improving
[2018-09-03 17:16] VITALS: BP 139/96; PULSE 84; RESP 14; O2SAT 99
== END 2018-09-03 17:17 | disposition home or self-care (01) ==
LOC: ED 16:42
PROVIDERS: Emergency Provider Emergency Medicine
DX: J45.909 Unspecified asthma, uncomplicated (principal); F17.200 Nicotine dependence, unspecified, uncomplicated; E11.9 Type 2 diabetes mellitus without complications; Z79.4 Long term (current) use of insulin
CPT/HCPCS: 71046; 80048; 84484; 85025; 93005; 94640; 99284; A4216

== ENCOUNTER 2018-09-25 15:07 | Inpatient (IN) | payer MEDICAID, SELFPAY ==
[2018-09-25 15:08] VITALS: BP 138/79; PULSE 89; RESP 16; TEMP 36.4; O2SAT 96; BMI 24.8
--- NOTE | 2018-09-25 15:45 | ED.VISSUMM ---
- ER Visit Summary Date of Service: 09/25/18 Chief Complaint: Vomiting, diarrhea History of Present Illness: The patient is a 43 M presenting with vomiting, diarrhea. Patient states this started 8 days ago. He has been having vomiting and diarrhea. He denies blood in his emesis or stool. He denies abdominal pain. Denies fever. He denies recent antibiotics, recent travel, sick contacts. He went to his primary care physician today and was advised to come to the ED for possible dehydration. Patient has a history of diabetes, hep C, pancreatitis. He has a history of heavy alcohol use, denies current alcohol use. Physical Examination: Vitals are stable. Patient is afebrile. Alert no acute distress. HEENT exam dry mucous membranes. Neck is supple. Lungs are clear and equal bilaterally. Heart is regular rate and rhythm. Abdomen is soft nontender nondistended. No guarding or rebound Extremities are unremarkable. Skin is warm and dry. No focal neurologic deficit. Remainder of exam is unremarkable. Emergency Department Course and Treatment: Patient given IV fluids, Zofran. CBC unremarkable. Chemistries show BUN 60, creatinine 5.2. Previous creatinine was 0.99. Liver lipase are normal. Patient was given additional IV fluids. Stool studies were ordered. Discussed with the hospitalist for admission. Disposition: Admission Impression: Diarrhea, ОЛЕГ This note was generated with NotesFirst dictation software. It may contain incorrect words, spelling, and punctuation that were not noted in review of the chart prior to signing ED Disposition - Plan for ED Patient: Referrals: Isidro Bahena,[facility]jandra Hi [Primary Care Provider] -
[2018-09-25 15:52] LABS: Absolute Lymphocyte Count 1.95 X10^3/ul (0.83-4.51); Absolute Neutrophil Count 5.7 X10^3/uL (2.0-7.7); Basophil# 0.12 X10^3/uL; Basophil% 1.3 % (0-1); Eosinophils% 5.5 % (0-5); Hematocrit 37.2 % (40-54); Lymphocyte # 1.95 X10^3/ul (4.0); Lymphocyte % 21.3 % (19-41); Mean Corp Hgb Conc 34.9 g/gl (32-36); Mean Corpuscular Hgb 30.6 pg (27.0-32.0); Mean Corpuscular Volume 87.5 fL (80-94); Mean Platelet Vol. 10.5 fl (6.2-12.0); Monocyte# 0.89 X10^3/uL; Monocyte% 9.7 % (0-10); Neutrophil # 5.68 X10^3/uL (2.7-7.7); Platelet Count 326 K/mm3 (150-450); RBC Distribution Width CV 12.6 % (11.6-14.6); RBC Distribution Width SD 39.3 fl (35.1-43.9); Red Blood Count 4.25 M/mm3 (4.6-6.2); White Blood Count 9.2 K/mm3 (4.4-11.0)
[2018-09-25 15:53] LABS: POSITIVE COUNT NO; POSITIVE DIFFERENTIAL NO; POSITIVE MORPHOLOGY NO
[2018-09-25] MEDS: 0.9% Normal Saline 1,000 ML 999 ML IV ×3 (15:54→18:33)
[2018-09-25] MEDS: Ondansetron 4 MG/2 ML Vial IV (15:54)
[2018-09-25 16:00] LABS: Anion Gap 11 (5-15); BUN 60 mg/dL (7-18); BUN/Creat Ratio 11.5 RATIO (10-20); Calcium,Total 8.8 mg/dL (8.5-10.1); Chloride 107 mmol/L (98-107); EST Glomerular Filtration Rate 13 mL/min (>60); Est Glom Filt Rate - Afr Amer 16 mL/min (>60); Estimated Creatinine Clearance 19.71 ml/min; Glucose 74 mg/dL (74-106); Potassium 3.7 mmol/L (3.5-5.1); Sodium Level 139 mmol/L (136-145)
[2018-09-25 16:29] LABS: AST(SGOT) 26 U/L (15-37); Alanine Aminotransfer ALT/SGPT 49 U/L (16-61); Albumin, Serum 4.1 g/dL (3.2-5.0); Alkaline Phosphatase 45 U/L (45-117); Bilirubin, Direct 0.12 mg/dL (0.00-0.30); Globulin 4.3 g/dL (2.2-4.2); Lipase 56 U/L (73-393); Protein, Total 8.4 g/dL (6.4-8.2)
--- NOTE | 2018-09-25 17:03 | HP.PCM_ITS ---
Problem List (1) Liver cirrhosis Status: Chronic (2) History of tobacco abuse Status: Chronic (3) Pseudocyst Pancreatic Tail Status: Chronic (4) History of pancreatitis Status: Chronic (5) History of alcohol use Status: Chronic (6) Type 1 diabetes mellitus Status: Chronic History of Present Illness Date of Admission: 09/25/18 Chief Complaint: Diarrhea. The patient is a 43 year old M who presents emergency room due to intractable diarrhea times 8 days. He reports he had nausea and vomiting this past Saturday, otherwise no significant nausea or vomiting during the past week. He states he has been following a clear liquid diet or BRAT diet without significant improvement in his symptoms. He states he has had diarrhea approximately every 30 minutes throughout the day. Denies blood in stool. He saw his primary care provider today who referred him to the emergency room for evaluation given his history of pancreatitis. He denies abdominal pain or cramping. Denies fever, chills. He denies history of colitis or other inflammatory bowel disorders. Denies recent antibiotic use. He has a past medical history of type 1 diabetes mellitus, liver cirrhosis, tobacco dependence, history of alcohol and polysubstance use. Past Medical History Past Medical History (Chronic Problems): Chronic Problems Type 1 diabetes mellitus (Chronic) Liver cirrhosis (Chronic) History of tobacco abuse (Chronic) Pseudocyst Pancreatic Tail (Chronic) History of pancreatitis (Chronic) History of alcohol use (Chronic) Allergies sulfamethoxazole [From Bactrim] Allergy (Verified 09/03/18 16:00) Hives trimethoprim [From Bactrim] Allergy (Verified 09/03/18 16:00) Hives Home Medications: Ambulatory Orders Medication Instructions Recorded Albuterol IH (ProAir) [Proair Hfa] 2 puff INHALATION Q4H PRN 01/20/18 Cholecalciferol (VIT D3) [Vitamin 1 tablet PO DAILY 01/20/18 D3] Gabapentin [Neurontin] 300 capsule PO TID 01/20/18 Ibuprofen 3 tablet PO PRN PRN 01/20/18 Insulin Aspart [Novolog Flexpen] See Protocol SC TIDCM 01/20/18 Insulin Glargine,Hum.rec.anlog 30 units SQ DAILY 01/20/18 [Basaglar Kwikpen U-100] Albuterol Inhaler [Ventolin Hfa] 2 puff INHALATION Q4H PRN PRN #1 09/03/18 inhaler Surgical History: - - Hernia repair. Psychiatric History: No pertinent psych hx Lives: With Family Smoking Status: Current every day smoker Alcohol: Sober Drugs: - - None current, history of polysubstance use. - *Family History Maternal History Items: Heart Disease Paternal History Items: Diabetes Review of Systems Constitutional: Denies: Chills, Fever, Weight Change HEENT: Denies: Head Aches, Sinus Congestion, Sinus Drainage Cardiovascular: Denies: Chest Pain, Palpitations Respiratory: Denies: Cough, Shortness of breath at rest, Sputum production Gastrointestinal: Reports: Diarrhea, Nausea, Vomiting. Denies: Abdominal Pain, Hematemesis, Hematochezia, Melena Genitourinary: Denies: Dysuria Musculoskeletal: Denies: Joint Pain, Joint Tenderness Skin: Denies: Rash, Wounds Neurological: Denies: Numbness, Tingling, Focal weakness Psychiatric: Denies: Anxiety, Depression, Homicidal Ideations, Suicidal Ideations Hematologic/ Lymphatic: Denies: Easy Bruising, Easy Bleeding VTE Information - Inpt Only VTE Present on Admission: No VTE Mechan Device Prophylaxis: None VTE Pharm Prophylaxis ordered?: Yes - Physical Exam General: Alert, Oriented x3, Cooperative HEENT: Atraumatic, PERRLA, EOMI, Normocephalic Neck: Supple, No JVD, Negative Carotid Bruits Lungs: Clear to auscultation, Normal air movement Cardiovascular: Regular rate, Regular Rhythm, Normal S1, Normal S2, No murmurs Abdomen: Bowel Sounds Present, Soft, Non Tender, Non-Distended Extremities: No clubbing, No cyanosis, No edema, Capillary Refill Less than 3 Seconds Skin: No rashes, No breakdown Musculoskeletal: No Tenderness to Palpation of Joints or Extremities Neurological: Cranial nerves II-XII grossly intact, Neuro grossly intact Psych/Mental Status: Normal Affect, Appropriate Vital Signs Temp Pulse Resp BP Pulse Ox 97.6 F L 89 16 138/79 H 96 09/25/18 15:08 09/25/18 15:08 09/25/18 15:08 09/25/18 15:08 09/25/18 15:08 Oxygen Delivery Method Room Air Weight: 178 lb Body Mass Index (BMI) 24.8 Finger Stick Blood Glucose 264 Laboratory Tests Past 24 Hrs 09/25/18 09/25/1809/25/19 15:17 15:17 15:17 WBC 9.2 RBC 4.25 L Hgb 13.0 Hct 37.2 L MCV 87.5 MCH 30.6 MCHC 34.9 RDW 12.6 RDW Differential 39.3 Plt Count 326 MPV 10.5 Immature Gran % (Auto) 0.200 Neut % (Auto) 62.0 Lymph % (Auto) 21.3 [place] % (Auto) 9.7 Eos % (Auto) 5.5 H Baso % (Auto) 1.3 H Absolute Neuts (auto) 5.7 Absolute Lymphs (auto) 1.95 Total Counted Not Reportable Sodium 139 Potassium 3.7 Chloride 107 Carbon Dioxide 21.0 Anion Gap 11 BUN 60 H Creatinine 5.20 H Estim Creat Clear Calc 19.71 Est GFR (MDRD) Af Amer 16 L Est GFR (MDRD) Non-Af 13 L BUN/Creatinine Ratio 11.5 Glucose 74 Calcium 8.8 Total Bilirubin 0.40 Direct Bilirubin 0.12 AST 26 ALT 49 Alkaline Phosphatase 45 Total Protein 8.4 H Albumin 4.1 Globulin 4.3 H Lipase 56 L Assessment/Plan 1. Acute kidney injury secondary to intractable nausea, vomiting, diarrhea- suspect viral gastroenteritis. Aggressive IV fluids. Trend BMP. Check stool for enteric pathogen, C. difficile. Clear liquid diet. 2. Liver cirrhosis-secondary to history of alcohol abuse and hepatitis C. 3. Type 1 diabetes [id number] ACHS, continue home insulin regimen. 4. History of pancreatitis/pancreatic pseudocyst-lipase within normal limits. Denies abdominal pain. 5. Tobacco dependence-encouraged smoking cessation. 6. History of polysubstance abuse-denies current use. Check urine tox screen. DVT prophylaxis-heparin subcu This patient was seen by CHACORTA Ponce under the supervision of Dr. Juan.
--- NOTE | 2018-09-25 17:05 | CASEMGMT ---
RN CM Assessment Introduced role of RN CM to patient and mother at bedside. Patient is alert, oriented and able to participate in RN CM Assessment. Care providers, pharmacy, and demographics verified. Presentation: Admitted for ОЛЕГ, N/V/D. CC: N/V/D PCP: [facility] Seen by [employer] MANAGER Winsome Apple. Patient states needs to establish a PCP. Specialists: CONOR Cesar Preferred Pharmacy: [facility] Insurance: [employer] Prescription Benefit: Yes LNOK: Mother Madisyn Holguin Living Arrangements: Lives with mother in a 2 story house. Independent with ambulation and ADL's. Transportation: Patient Drives, mother drives on [place]. DME: Glucometer, No preference- Per Insurance. HHC: Denies, No preference- Per Insurance. SNF: Denies, No preference- Per Insurance. DC PLAN: Home with no anticipated Needs identified. Needs PCP List. MATT Plummer
[2018-09-25 17:21] VITALS: BP 129/87; PULSE 74; RESP 14; O2SAT 100
[2018-09-25 18:02] VITALS: BMI 23.6
[2018-09-25 18:06] VITALS: BMI 23.7
[2018-09-25 18:11] VITALS: BP 127/81; PULSE 70; RESP 18; TEMP 36.4; O2SAT 100
[2018-09-25 18:22] LABS: Magnesium 2.1 mg/dL (1.6-2.6)
[2018-09-25 18:44] LABS: Hemoglobin A1c 8.6 % (4.2-6.3)
[2018-09-25 19:17] LABS: Amphetamine Urine VISTA NEGATIVE (<1000 ng/mL); Barbiturate Urine VISTA NEGATIVE (< 200 ng/mL); Benzodiazepine Urine VISTA NEGATIVE (< 200 ng/mL); Cocaine Urine VISTA NEGATIVE (< 300 ng/mL); Ecstacy Urine VISTA NEGATIVE (< 500 ng/mL); Methadone Urine VISTA NEGATIVE (< 300 ng/mL); PCP Urine VISTA NEGATIVE (< 25 ng/mL); THC Urine VISTA NEGATIVE (< 50 ng/mL); Vista UDS pH Range 6
[2018-09-25 19:50] VITALS: O2SAT 100
[2018-09-25] MEDS: 0.9% Normal Saline 1,000 ML 150 ML IV (19:50)
[2018-09-25] MEDS: Gabapentin 300 MG Capsule PO (21:18)
[2018-09-25] MEDS: Heparin Injection (Vial) 5,000 UNIT/ML VIAL 5000 UNIT SC (21:18)
[2018-09-25] MEDS: Insulin Lispro 100 UNIT/ML INSULN.PEN SC (21:19)
[2018-09-25 21:30] LABS: Bedside Glucose 202 mg/dL (70-110)
[2018-09-25 21:35] VITALS: BP 128/91; PULSE 79; RESP 16; TEMP 36.4; O2SAT 100
[2018-09-26] MEDS: 0.9% Normal Saline 1,000 ML 150 ML IV ×4 (01:55→23:09)
[2018-09-26 04:16] VITALS: BP 124/95; PULSE 72; RESP 17; TEMP 36.8; O2SAT 100
[2018-09-26 06:15] LABS: Absolute Lymphocyte Count 1.91 X10^3/ul (0.83-4.51); Absolute Neutrophil Count 3.5 X10^3/uL (2.0-7.7); Basophil# 0.06 X10^3/uL; Basophil% 0.9 % (0-1); Eosinophils% 6.1 % (0-5); Hematocrit 30.8 % (40-54); Hemoglobin 10.5 g/dl (13.0-16.5); Lymphocyte # 1.91 X10^3/ul (4.0); Lymphocyte % 29.2 % (19-41); Mean Corp Hgb Conc 34.1 g/gl (32-36); Mean Corpuscular Hgb 30.4 pg (27.0-32.0); Mean Corpuscular Volume 89.3 fL (80-94); Mean Platelet Vol. 10.4 fl (6.2-12.0); Monocyte# 0.68 X10^3/uL; Monocyte% 10.4 % (0-10); Neutrophil # 3.47 X10^3/uL (2.7-7.7); Neutrophil % 53.2 % (47-70); Platelet Count 255 K/mm3 (150-450); RBC Distribution Width CV 12.8 % (11.6-14.6); RBC Distribution Width SD 40.1 fl (35.1-43.9); Red Blood Count 3.45 M/mm3 (4.6-6.2); White Blood Count 6.5 K/mm3 (4.4-11.0)
[2018-09-26 06:17] LABS: POSITIVE COUNT NO; POSITIVE DIFFERENTIAL NO; POSITIVE MORPHOLOGY NO
[2018-09-26 06:33] LABS: AST(SGOT) 22 U/L (15-37); Alanine Aminotransfer ALT/SGPT 33 U/L (16-61); Alkaline Phosphatase 32 U/L (45-117); Anion Gap 8 (5-15); BUN 49 mg/dL (7-18); BUN/Creat Ratio 11.9 RATIO (10-20); Calcium,Total 7.3 mg/dL (8.5-10.1); Chloride 117 mmol/L (98-107); Creatinine, Serum 4.13 mg/dL (0.70-1.30); EST Glomerular Filtration Rate 17 mL/min (>60); Est Glom Filt Rate - Afr Amer 21 mL/min (>60); Estimated Creatinine Clearance 24.82 ml/min; Globulin 3.1 g/dL (2.2-4.2); Glucose 116 mg/dL (74-106); Potassium 4.1 mmol/L (3.5-5.1); Protein, Total 6.1 g/dL (6.4-8.2); Sodium Level 139 mmol/L (136-145)
[2018-09-26 06:46] LABS: Bedside Glucose 116 mg/dL (70-110)
[2018-09-26] MEDS: Gabapentin 300 MG Capsule PO ×3 (08:20→16:45)
[2018-09-26 08:23] VITALS: BP 120/77; PULSE 73; RESP 16; TEMP 36.5; O2SAT 100
[2018-09-26] MEDS: Acetaminophen 325 MG Tablet 650 MG PO (08:31)
[2018-09-26] MEDS: Heparin Injection (Vial) 5,000 UNIT/ML VIAL 5000 UNIT SC ×2 (11:16→21:47)
[2018-09-26] MEDS: Insulin Lispro 100 UNIT/ML INSULN.PEN SC ×2 (11:58→16:46)
[2018-09-26 12:25] LABS: Bedside Glucose 332 mg/dL (70-110)
--- NOTE | 2018-09-26 14:03 | PN_ITS ---
Subjective: Patient seen and examined. Continues to have diarrhea. Denies further nausea, emesis. Tolerating clear liquids although he states it goes right through him. Denies abdominal pain, cramping. - Physical Exam General: Alert, Oriented x3, Cooperative HEENT: Atraumatic, PERRLA, EOMI, Normocephalic Neck: Supple, No JVD, Negative Carotid Bruits Lungs: Clear to auscultation, Normal air movement Cardiovascular: Regular rate, Regular Rhythm, Normal S1, Normal S2, No murmurs Abdomen: Bowel Sounds Present, Soft, Non Tender, Non-Distended Extremities: No clubbing, No cyanosis, No edema, Capillary Refill Less than 3 Seconds Skin: No rashes, No breakdown Musculoskeletal: No Tenderness to Palpation of Joints or Extremities Neurological: Cranial nerves II-XII grossly intact, Neuro grossly intact Psych/Mental Status: Normal Affect, Appropriate Vital Signs Temp Pulse Resp BP Pulse Ox 97.7 F L 73 16 120/77 100 09/26/18 08:23 09/26/18 08:23 09/26/18 08:23 09/26/18 08:23 09/26/18 08:23 Oxygen Delivery Method Room Air Weight: 169 lb 9.6 oz Body Mass Index (BMI) 23.6 Finger Stick Blood Glucose 264 Intake and Output for Last 24 Hours 09/24/18 09/25/18 09/26/18 23:59 23:59 23:59 Intake Total 1610 / 1610 2813 / 2813 Balance 1610 / 1610 2813 / 2813 Microbiology Past 72 Hours 09/25/18 18:45 Enteric Bacteriology - Final Stool 09/25/18 18:45 C. difficile DNA Amplification - Final Stool 09/25/18 18:45 Stool Lactoferrin - Final Stool Laboratory Tests Past 24 Hrs 09/25/18 09/25/18 09/25/18 15:17 15:17 15:17 WBC 9.2 RBC 4.25 L Hgb 13.0 Hct 37.2 L MCV 87.5 MCH 30.6 MCHC 34.9 RDW 12.6 RDW Differential 39.3 Plt Count 326 MPV 10.5 Immature Gran % (Auto) 0.200 Neut % (Auto) 62.0 Lymph % (Auto) 21.3 [place] % (Auto) 9.7 Eos % (Auto) 5.5 H Baso % (Auto) 1.3 H Absolute Neuts (auto) 5.7 Absolute Lymphs (auto) 1.95 Total Counted Not Reportable Sodium 139 Potassium 3.7 Chloride 107 Carbon Dioxide 21.0 Anion Gap 11 BUN 60 H Creatinine 5.20 H Estim Creat Clear Calc 19.71 Est GFR (MDRD) Af Amer 16 L Est GFR (MDRD) Non-Af 13 L BUN/Creatinine Ratio 11.5 Glucose 74 Hemoglobin A1c Calcium 8.8 Magnesium Total Bilirubin 0.40 Direct Bilirubin 0.12 AST 26 ALT 49 Alkaline Phosphatase 45 Total Protein 8.4 H Albumin 4.1 Globulin 4.3 H Albumin/Globulin Ratio Lipase 56 L Urine Opiates Screen Urine Methadone Screen Ur Barbiturates Screen Ur Phencyclidine Scrn Ur Amphetamines Screen U Methamphetamin-MDMA U Benzodiazepines Scrn Urine Cocaine Screen U Cannabinoids Screen Ur Drug Screen Comment 09/25/18 09/25/18 09/25/18 15:17 15:17 18:42 WBC RBC Hgb Hct MCV MCH MCHC RDW RDW Differential Plt Count MPV Immature Gran % (Auto) Neut % (Auto) Lymph % (Auto) [place] % (Auto) Eos % (Auto) Baso % (Auto) Absolute Neuts (auto) Absolute Lymphs (auto) Total Counted Sodium Potassium Chloride Carbon Dioxide Anion Gap BUN Creatinine Estim Creat Clear Calc Est GFR (MDRD) Af Amer Est GFR (MDRD) Non-Af BUN/Creatinine Ratio Glucose Hemoglobin A1c 8.6 H Calcium Magnesium 2.1 Total Bilirubin Direct Bilirubin AST ALT Alkaline Phosphatase Total Protein Albumin Globulin Albumin/Globulin Ratio Lipase Urine Opiates Screen NEGATIVE Urine Methadone Screen NEGATIVE Ur Barbiturates Screen NEGATIVE Ur Phencyclidine Scrn NEGATIVE Ur Amphetamines Screen NEGATIVE U Methamphetamin-MDMA NEGATIVE U Benzodiazepines Scrn NEGATIVE Urine Cocaine Screen NEGATIVE U Cannabinoids Screen NEGATIVE Ur Drug Screen Comment 09/26/18 09/26/18 05:55 05:55 WBC 6.5 RBC 3.45 L Hgb 10.5 L Hct 30.8 L MCV 89.3 MCH 30.4 MCHC 34.1 RDW 12.8 RDW Differential 40.1 Plt Count 255 MPV 10.4 Immature Gran % (Auto) 0.200 Neut % (Auto) 53.2 Lymph % (Auto) 29.2 [place] % (Auto) 10.4 H Eos % (Auto) 6.1 H Baso % (Auto) 0.9 Absolute Neuts (auto) 3.5 Absolute Lymphs (auto) 1.91 Total Counted Not Reportable Sodium 139 Potassium 4.1 Chloride 117 H Carbon Dioxide 14.0 L Anion Gap 8 BUN 49 H Creatinine 4.13 H Estim Creat Clear Calc 24.82 Est GFR (MDRD) Af Amer 21 L Est GFR (MDRD) Non-Af 17 L BUN/Creatinine Ratio 11.9 Glucose 116 H Hemoglobin A1c Calcium 7.3 L Magnesium Total Bilirubin 0.30 Direct Bilirubin AST 22 ALT 33 Alkaline Phosphatase 32 L Total Protein 6.1 L Albumin 3.0 L Globulin 3.1 Albumin/Globulin Ratio 1.0 Lipase Urine Opiates Screen Urine Methadone Screen Ur Barbiturates Screen Ur Phencyclidine Scrn Ur Amphetamines Screen U Methamphetamin-MDMA U Benzodiazepines Scrn Urine Cocaine Screen U Cannabinoids Screen Ur Drug Screen Comment POC Glucose 09/26/18 09/26/18 09/25/18 11:56 06:37 21:14 POC Glucose 332 H 116 H 202 H Medical Necessity - Tobacco Use Smoking Status: Current every day smoker Tobacco Use: Cigarettes Assessment/Plan 1. Acute kidney injury secondary to intractable nausea, vomiting, diarrhea- suspect viral gastroenteritis. Aggressive IV fluids. Creatinine improving. Trend BMP. Stool for enteric pathogen, C. difficile, lactoferrin all negative. Check stool for ova and parasites. Clear liquid diet. Begin Imodium as needed for diarrhea. 2. Liver cirrhosis-secondary to history of alcohol abuse and hepatitis C. Given 6 months sobriety, has upcoming outpatient follow-up for hepatitis C treatment. 3. Type 1 diabetes [id number] ACHS, continue home insulin regimen. 4. History of pancreatitis/pancreatic pseudocyst-lipase within normal limits. Denies abdominal pain. 5. Tobacco dependence-encouraged smoking cessation. 6. History of polysubstance abuse-denies current use. Urine tox screen negative. DVT prophylaxis-heparin subcu This patient was seen by CHACORTA Ponce under the supervision of Dr. Christine.
[2018-09-26 14:07] VITALS: BP 110/77; PULSE 70; RESP 18; TEMP 37.1; O2SAT 99
[2018-09-26] MEDS: Loperamide 2 MG Capsule PO (14:09)
--- NOTE | 2018-09-26 15:05 | CASEMGMT ---
BRENNON LYLE NOTE: Pt provided with list of local PCP's that are in Network with [facility] that was obtained from [facility] Website. Marques VILA RN CM
[2018-09-26 18:46] LABS: Bedside Glucose 268 mg/dL (70-110)
[2018-09-26 19:44] VITALS: BP 110/84; PULSE 68; RESP 16; TEMP 36.8; O2SAT 100
[2018-09-26 20:10] LABS: Bedside Glucose 85 mg/dL (70-110)
[2018-09-26 20:10] LABS: Bedside Glucose 53 mg/dL (70-110)
[2018-09-26 21:45] LABS: Bedside Glucose 48 mg/dL (70-110)
[2018-09-26] MEDS: Dextrose 50%-Water 25 GM/50 ML DISP.SYRIN IV (22:56)
[2018-09-27 00:01] LABS: Bedside Glucose 64 mg/dL (70-110)
[2018-09-27 00:05] LABS: Bedside Glucose 134 mg/dL (70-110)
[2018-09-27 02:05] VITALS: BP 120/83; PULSE 60; RESP 18; TEMP 36.8; O2SAT 100
[2018-09-27 02:20] LABS: Bedside Glucose 97 mg/dL (70-110)
[2018-09-27 04:11] LABS: Bedside Glucose 76 mg/dL (70-110)
[2018-09-27] MEDS: 0.9% Normal Saline 1,000 ML 150 ML IV (06:20)
[2018-09-27 06:55] LABS: Bedside Glucose 122 mg/dL (70-110)
[2018-09-27 07:32] LABS: Hematocrit 29.9 % (40-54); Hemoglobin 10.1 g/dl (13.0-16.5); Mean Corp Hgb Conc 33.8 g/gl (32-36); Mean Corpuscular Hgb 30.1 pg (27.0-32.0); Mean Corpuscular Volume 89.3 fL (80-94); Mean Platelet Vol. 10.2 fl (6.2-12.0); Platelet Count 244 K/mm3 (150-450); RBC Distribution Width CV 13.3 % (11.6-14.6); RBC Distribution Width SD 43.3 fl (35.1-43.9); Red Blood Count 3.35 M/mm3 (4.6-6.2); White Blood Count 6.9 K/mm3 (4.4-11.0)
[2018-09-27 07:35] LABS: Scan Indicated on CBC? Y/N NO
[2018-09-27 07:36] VITALS: BP 129/77; PULSE 66; RESP 18; TEMP 36.6; O2SAT 100
[2018-09-27 07:50] LABS: Bedside Glucose 73 mg/dL (70-110)
[2018-09-27 07:55] LABS: Anion Gap 8 (5-15); BUN 38 mg/dL (7-18); BUN/Creat Ratio 11.1 RATIO (10-20); Calcium,Total 7.4 mg/dL (8.5-10.1); Chloride 116 mmol/L (98-107); Creatinine, Serum 3.42 mg/dL (0.70-1.30); EST Glomerular Filtration Rate 21 mL/min (>60); Est Glom Filt Rate - Afr Amer 26 mL/min (>60); Estimated Creatinine Clearance 29.97 ml/min; Glucose 91 mg/dL (74-106); Potassium 4.2 mmol/L (3.5-5.1); Sodium Level 141 mmol/L (136-145)
[2018-09-27 08:00] VITALS: O2SAT 98
[2018-09-27] MEDS: Gabapentin 300 MG Capsule PO ×2 (08:44→11:41)
[2018-09-27] MEDS: Heparin Injection (Vial) 5,000 UNIT/ML VIAL 5000 UNIT SC (09:47)
[2018-09-27 09:56] LABS: Bedside Glucose 174 mg/dL (70-110)
[2018-09-27] MEDS: Insulin Lispro 100 UNIT/ML INSULN.PEN SC (11:15)
--- NOTE | 2018-09-27 13:29 | DCINST_ITS ---
- Discharge Diagnoses Current Active Problems: Current Active and Chronic Problems Type 1 diabetes mellitus (Chronic) You will use the following diet at home:: Other - Advance as tolerated, carb control Discharge Activity: Return to Normal Activity Call your doctor if you observe: Inability to urinate, Shortness of breath, Dizziness, Fainting spells, Chest pain Allergies/Adverse Reactions: Allergies sulfamethoxazole [From Bactrim] Allergy (Verified 09/03/18 16:00) Hives trimethoprim [From Bactrim] Allergy (Verified 09/03/18 16:00) Hives Medications to take at Discharge Albuterol IH (ProAir) [Proair Hfa] 2 puff INHALATION Q4H PRN 01/20/18 Cholecalciferol (VIT D3) [Vitamin D3] 1,000 unit PO DAILY 01/20/18 Ibuprofen 600 mg PO PRN PRN 01/20/18 Insulin Aspart [Novolog Flexpen] See Protocol SC TIDCM 01/20/18 Insulin Glargine,Hum.rec.anlog [Basaglar Kwikpen U-100] 30 units SQ DAILY 01/20/18 Gabapentin [Neurontin] 300 mg PO TID 09/25/18 Loperamide [Imodium] 2 - 4 mg PO Q2H PRN PRN capsule 09/27/18 Primary Care Physician: Alejandra Montague [NON-STAFF] - Please follow up with your Primary Care Physician in: 3-5 days Test Results: Test results from this visit will be discussed in further detail at your follow- up appointment, if applicable. Proposed Discharge Date: 09/27/18
--- NOTE | 2018-09-27 13:30 | PCM.DC.SUM ---
Discharge Date and Diagnosis Date of Admission: 09/25/18 Date of Discharge: 09/27/18 - Primary Discharge Diagnosis 1. Acute kidney injury secondary to intractable nausea, vomiting, diarrhea-suspect viral gastroenteritis. 2. Liver cirrhosis 3. Type 1 diabetes mellitus 4. History of pancreatitis/pancreatic pseudocyst 5. Tobacco dependence 6. History of polysubstance abuse - Secondary Discharge Diagnosis Chronic Problems Type 1 diabetes mellitus (Chronic) Liver cirrhosis (Chronic) History of tobacco abuse (Chronic) Pseudocyst Pancreatic Tail (Chronic) History of pancreatitis (Chronic) History of alcohol use (Chronic) Hospital Course and Treatment Operations: None Procedures: None Summary of Care Provided: The patient is a 43 year old M admitted 09/25/2018 due to diarrhea. 1. Acute kidney injury secondary to intractable nausea, vomiting, diarrhea-suspect viral gastroenteritis. Creatinine improving. Stool for enteric pathogen, C. difficile, lactoferrin all negative. Stool ordered for for ova and parasites although patient did not have further bowel movement to obtain this test. Patient received 1 dose of Imodium and no further diarrhea. Tolerating regular diet without nausea, emesis. Denies abdominal pain. His CBC was remarkable for eosinophilia. If patient continues to have diarrhea, recommend completing ova and parasite stool studies as outpatient. Patient will need repeat BMP in 3-5 days[facility] 2. Liver cirrhosis-secondary to history of alcohol abuse and hepatitis C. Given 6 months sobriety, has upcoming outpatient follow-up for hepatitis C treatment. 3. Type 1 diabetes mellitus-continue home insulin regimen. Hemoglobin A1c 8.6%. 4. History of pancreatitis/pancreatic pseudocyst-lipase within normal limits. 5. Tobacco dependence-encouraged smoking cessation. 6. History of polysubstance abuse-denies current use. Urine tox screen negative. General: Alert, Oriented x3, Cooperative HEENT: Atraumatic, PERRLA, EOMI, Normocephalic Neck: Supple, No JVD, Negative Carotid Bruits Lungs: Clear to auscultation, Normal air movement Cardiovascular: Regular rate, Regular Rhythm, Normal S1, Normal S2, No murmurs Abdomen: Bowel Sounds Present, Soft, Non Tender, Non-Distended Extremities: No clubbing, No cyanosis, No edema, Capillary Refill Less than 3 Seconds Skin: No rashes, No breakdown Musculoskeletal: No Tenderness to Palpation of Joints or Extremities Neurological: Cranial nerves II-XII grossly intact, Neuro grossly intact Psych/Mental Status: Normal Affect, Appropriate Patient seen and examined prior to discharge. Physical assessment as noted above. Patient is stable for discharge with follow up recommendations as noted above. This patient was seen by CHACORTA Ponce under the supervision of Dr. Christine. - Physical Exam Vital Signs Temp Pulse Resp BP Pulse Ox 97.9 F 66 18 129/77 H 98 09/27/18 07:36 09/27/18 07:36 09/27/18 07:36 09/27/18 07:36 09/27/18 08:00 Oxygen Delivery Method Room Air Weight: 169 lb 9.6 oz Body Mass Index (BMI) 23.6 Finger Stick Blood Glucose 264 Intake and Output for Last 24 Hours 09/25/18 09/26/18 09/27/18 23:59 23:59 23:59 Intake Total 1610 / 1610 4993 / 4993 2597 / 2597 Balance 1610 / 1610 4993 / 4993 2597 / 2597 Microbiology Past 72 Hours 09/25/18 18:45 Enteric Bacteriology - Final Stool 09/25/18 18:45 C. difficile DNA Amplification - Final Stool 09/25/18 18:45 Stool Lactoferrin - Final Stool Laboratory Tests Past 24 Hrs 09/27/18 09/27/18 07:05 07:05 WBC 6.9 RBC 3.35 L Hgb 10.1 L Hct 29.9 L MCV 89.3 MCH 30.1 MCHC 33.8 RDW 13.3 RDW Differential 43.3 Plt Count 244 MPV 10.2 Sodium 141 Potassium 4.2 Chloride 116 H Carbon Dioxide 17.0 L Anion Gap 8 BUN 38 H Creatinine 3.42 H Estim Creat Clear Calc 29.97 Est GFR (MDRD) Af Amer 26 L Est GFR (MDRD) Non-Af 21 L BUN/Creatinine Ratio 11.1 Glucose 91 Calcium 7.4 L POC Glucose 09/27/18 09/27/18 09/27/18 09:50 07:43 06:19 POC Glucose 174 H 73 122 H 09/27/18 09/27/18 09/27/18 04:06 02:07 00:00 POC Glucose 76 97 134 H 09/26/18 09/26/18 09/26/18 22:03 21:43 20:05 POC Glucose 64 L 48 L 85 09/26/18 09/26/18 19:37 16:04 POC Glucose 53 L 268 H Discharge Diet: - - Advance as tolerated Discharge Activity: Return to Normal Activity Call your doctor if you observe: Inability to urinate, Shortness of breath, Dizziness, Fainting spells, Chest pain Home Medications: Medications to take at Discharge Albuterol IH (ProAir) [Proair Hfa] 2 puff INHALATION Q4H PRN 01/20/18 Cholecalciferol (VIT D3) [Vitamin D3] 1,000 unit PO DAILY 01/20/18 Ibuprofen 600 mg PO PRN PRN 01/20/18 Insulin Aspart [Novolog Flexpen] See Protocol SC TIDCM 01/20/18 Insulin Glargine,Hum.rec.anlog [Basaglar Kwikpen U-100] 30 units SQ DAILY 01/20/18 Gabapentin [Neurontin] 300 mg PO TID 09/25/18 Loperamide [Imodium] 2 - 4 mg PO Q2H PRN PRN capsule 09/27/18 Primary Care Physician: Alejandra Montague [NON-STAFF] - Please follow up with your Primary Care Physician in: 3-5 days Disposition: Home Minutes spent on discharge:: 35 Patient Condition:: Stable Medical Necessity - Tobacco Use Smoking Status: Current every day smoker Tobacco Use: Cigarettes Meaningful Use Info Meaningful Use Diagnoses (Choose all that apply): None applicable
[2018-09-27 13:43] VITALS: BP 138/90; PULSE 65; RESP 18; TEMP 36.5; O2SAT 98
[2018-09-27 14:45] VITALS: BP 138/90; PULSE 65; RESP 18; TEMP 36.5; O2SAT 98
--- NOTE | 2018-09-29 16:28 | CASEMGMT ---
RN CM DISCHARGE PHONE CALL DC DATE: 09/27/18 DC DISPOSITION: Home LACE/STRATA: 05/31 No answer to call and no message machine. Rojelio COLLADON RN ACM
== END 2018-09-27 14:46 | disposition home or self-care (01) | DRG 469 ==
LOC: ED 16:52 → MS2 17:16
PROVIDERS: Nurse Practitioner Family; Admitting Provider Family Medicine; Emergency Provider Emergency Medicine; Family Provider Nurse Practitioner Family; PCP Nurse Practitioner Family; Visit Provider Internal Medicine
DX: N17.9 Acute kidney failure, unspecified (principal); K70.30 Alcoholic cirrhosis of liver without ascites; A08.4 Viral intestinal infection, unspecified; B19.20 Unspecified viral hepatitis C without hepatic coma; E10.9 Type 1 diabetes mellitus without complications; F17.210 Nicotine dependence, cigarettes, uncomplicated; Z79.4 Long term (current) use of insulin; F10.11 Alcohol abuse, in remission; F19.11 Other psychoactive substance abuse, in remission; Z87.19 Personal history of other diseases of the digestive system
CPT/HCPCS: 36415; 80048; 80053; 80076; 80307; 82962; 83036; 83630; 83690; 83735; 85025; 85027; 87493; 87506; 99283; 99406; J7030; A4216; J2405

== ENCOUNTER → 2018-12-08 16:29 | Outpatient (CLI) | payer MEDICAID, SELFPAY ==
[2018-12-08 17:32] LABS: Amphetamine Urine VISTA NEGATIVE (<1000 ng/mL); Barbiturate Urine VISTA NEGATIVE (< 200 ng/mL); Benzodiazepine Urine VISTA NEGATIVE (< 200 ng/mL); Cocaine Urine VISTA NEGATIVE (< 300 ng/mL); Ecstacy Urine VISTA NEGATIVE (< 500 ng/mL); Methadone Urine VISTA NEGATIVE (< 300 ng/mL); PCP Urine VISTA NEGATIVE (< 25 ng/mL); THC Urine VISTA NEGATIVE (< 50 ng/mL); Vista UDS pH Range 6
[2018-12-11 14:30] LABS: HCV log 10 6.856 (.)
== END ==
PROVIDERS: Family Provider Nurse Practitioner Family; PCP Nurse Practitioner Family
DX: B18.2 Chronic viral hepatitis C (principal); F10.288 Alcohol dependence with other alcohol-induced disorder
CPT/HCPCS: 36415; 80307; 87522

== ENCOUNTER → 2019-05-05 10:07 | Outpatient (CLI) | payer MEDICAID, SELFPAY ==
[2019-05-05 10:56] LABS: Hemoglobin 12.9 g/dL (13.0-16.5); Mean Corp Hgb Conc 32.3 g/dL (32-36); Mean Corpuscular Hgb 29.1 pg (27.0-32.0); Mean Corpuscular Volume 90.3 fL (80-94); Platelet Count 248 K/mm3 (150-450); RBC Distribution Width CV 13.1 % (11.6-14.6); RBC Distribution Width SD 43.5 fl (35.1-43.9); Red Blood Count 4.43 M/mm3 (4.6-6.2); White Blood Count 5.8 K/mm3 (4.4-11.0)
[2019-05-05 11:09] LABS: Amphetamine Urine VISTA NEGATIVE (<1000 ng/mL); Barbiturate Urine VISTA NEGATIVE (< 200 ng/mL); Benzodiazepine Urine VISTA NEGATIVE (< 200 ng/mL); Cocaine Urine VISTA NEGATIVE (< 300 ng/mL); Ecstacy Urine VISTA NEGATIVE (< 500 ng/mL); Methadone Urine VISTA NEGATIVE (< 300 ng/mL); PCP Urine VISTA NEGATIVE (< 25 ng/mL); THC Urine VISTA NEGATIVE (< 50 ng/mL); Vista UDS pH Range 5
[2019-05-05 11:27] LABS: Hemoglobin A1c 9.8 % (4.2-6.3)
[2019-05-05 11:30] LABS: ALB/GLOB Ratio 0.8 RATIO (0.9-2.4); AST(SGOT) 89 U/L (15-37); Alanine Aminotransfer ALT/SGPT 151 U/L (16-61); Albumin, Serum 3.5 g/dL (3.2-5.0); Alkaline Phosphatase 63 U/L (45-117); Anion Gap 4 (5-15); BUN 18 mg/dL (7-18); BUN/Creat Ratio 12.8 RATIO (10-20); Calcium,Total 9.2 mg/dL (8.5-10.1); Chloride 102 mmol/L (98-107); Cholesterol 189 mg/dL (200); Creatinine, Serum 1.41 mg/dL (0.70-1.30); EST Glomerular Filtration Rate 58 mL/min (>60); Est Glom Filt Rate - Afr Amer 71 mL/min (>60); GGTP 52 U/L (15-85); Globulin 4.2 g/dL (2.2-4.2); Glucose 368 mg/dL (74-106); High Density Lipoprotein 30 mg/dL; Potassium 5.6 mmol/L (3.5-5.1); Protein, Total 7.7 g/dL (6.4-8.2); Sodium Level 133 mmol/L (136-145); Thyroid Stim Hormone (TSH) 3.52 uIU/mL (0.358-3.74); Triglycerides 135 mg/dL; Very Low Density Lipoprotein 27 mg/dL (5-40)
[2019-05-07 13:04] LABS: HCV log 10 6.796 (.)
== END ==
PROVIDERS: Family Provider Nurse Practitioner Family; PCP Nurse Practitioner Family; Referring Provider Internal Medicine Infectious Disease; Visit Provider Internal Medicine Infectious Disease
DX: B18.2 Chronic viral hepatitis C (principal); E10.8 Type 1 diabetes mellitus with unspecified complications; R53.83 Other fatigue
CPT/HCPCS: 36415; 80053; 80061; 80307; 80320; 82977; 83036; 84443; 85027; 87522; G0480

== ENCOUNTER → 2019-08-17 16:53 | Outpatient (CLI) | payer MEDICAID, SELFPAY ==
[2019-08-17 17:51] LABS: Amphetamine Urine VISTA NEGATIVE (<1000 ng/mL); Barbiturate Urine VISTA NEGATIVE (< 200 ng/mL); Benzodiazepine Urine VISTA NEGATIVE (< 200 ng/mL); Cocaine Urine VISTA NEGATIVE (< 300 ng/mL); Ecstacy Urine VISTA NEGATIVE (< 500 ng/mL); Methadone Urine VISTA NEGATIVE (< 300 ng/mL); PCP Urine VISTA NEGATIVE (< 25 ng/mL); THC Urine VISTA NEGATIVE (< 50 ng/mL); Vista UDS pH Range 5
[2019-08-20 12:08] LABS: HCV Quant. RNA PCR 5870000 IU/mL (.)
[2019-08-20 15:44] LABS: HCV log 10 6.769 (.)
== END ==
PROVIDERS: PCP Nurse Practitioner Family; Referring Provider Internal Medicine Infectious Disease; Visit Provider Internal Medicine Infectious Disease
DX: B18.2 Chronic viral hepatitis C (principal)
CPT/HCPCS: 36415; 80307; 87522

== ENCOUNTER → 2019-08-19 09:59 | Outpatient (CLI) | payer MEDICAID, SELFPAY ==
--- NOTE | 2019-08-19 10:04 | US_ITS ---
STUDY: ABDOMINAL ULTRASOUND REASON FOR EXAM: Male, 44 years old. CHRONIC VIRAL HEP C TECHNIQUE: Transabdominal ultrasound was performed with real-time and static ov scale imaging. TECHNICAL QUALITY: Adequate. COMPARISON: Comparison is made with prior study dated June 03, 2014. FINDINGS: Liver: The liver is enlarged and measures 19.5 cm. There is normal echogenicity of the liver. The bile ducts are within normal limits. There is hepatic color flow. The direction of portal flow is hepatopetal. There is no demonstrated mass lesion. Portal vein measurement: Gallbladder: Normal distended gallbladder. The gallbladder wall measures 3.0 mm. There is a negative sonographic Alatorre''s sign. There is no pericholecystic fluid. There are no gallstones. Common Bile Duct (C.B.D.): The common bile duct measures 4.0 mm. Pancreas: There is diffuse atrophy of the pancreas. There is normal echogenicity of the pancreas. There is no demonstrated pancreatic mass or cyst. Spleen: Normal size of the spleen. The spleen measures 10.6 cm x 5 cm x 4.4 cm. Right Kidney: Normal size of the right kidney. The right kidney measures 12.2 cm x 6.8 cm x 5.5 cm. Normal renal cortex. The right cortex measures 1.9 cm. There is no demonstrated renal mass or cyst. There is no right hydronephrosis. Left Kidney: Normal size of the left kidney. The left kidney measures 12.2 cm x 6.8 cm x 6.9 cm. Normal renal cortex. The left cortex measures 2.8 cm. There is no demonstrated renal mass or cyst. There is no left hydronephrosis. Aorta: Unremarkable I.V.C.: The IVC is patent. There is no ascites. US/Abdomen Complete IMPRESSION: Mild hepatomegaly. The previously seen cyst in the tail the pancreas is not seen at this time. Electronically Signed: Mauricio Velasquez, at 14:31 EST , Service support ,
== END ==
PROVIDERS: PCP Nurse Practitioner Family
DX: R10.84 Generalized abdominal pain (principal); B18.2 Chronic viral hepatitis C
CPT/HCPCS: 76700

== ENCOUNTER → 2019-10-01 12:07 | Outpatient (CLI) | payer MEDICAID, SELFPAY ==
[2019-09-17 13:53] VITALS: BMI 23.6
[2019-10-01 13:41] LABS: Absolute Lymphocyte Count 2.22 X10^3/uL (0.83-4.51); Absolute Neutrophil Count 5.4 X10^3/uL (2.0-7.7); Basophil# 0.14 X10^3/uL; Basophil% 1.6 % (0-1); Eosinophil# 0.34 X10^3/uL; Eosinophils% 3.9 % (0-5); Hematocrit 39.7 % (40-54); Hemoglobin 12.8 g/dL (13.0-16.5); Lymphocyte # 2.22 X10^3/ul (4.0); Lymphocyte % 25.5 % (19-41); Mean Corp Hgb Conc 32.2 g/dL (32-36); Mean Platelet Vol. 11.6 fl (6.2-12.0); Monocyte# 0.57 X10^3/uL; Monocyte% 6.6 % (0-10); NRBC Flagged by Analyzer 0 % (0-5); Neutrophil # 5.39 X10^3/uL (2.7-7.7); Neutrophil % 62.1 % (47-70); Platelet Count 237 K/mm3 (150-450); RBC Distribution Width CV 13.4 % (11.6-14.6); RBC Distribution Width SD 44.6 fl (35.1-43.9); Red Blood Count 4.41 M/mm3 (4.6-6.2); White Blood Count 8.7 K/mm3 (4.4-11.0)
[2019-10-01 14:49] LABS: ALB/GLOB Ratio 0.8 RATIO (0.9-2.4); AST(SGOT) 25 U/L (15-37); Alanine Aminotransfer ALT/SGPT 21 U/L (16-61); Albumin, Serum 3.1 g/dL (3.2-5.0); Alkaline Phosphatase 55 U/L (45-117); Anion Gap 1 (5-15); BUN 20 mg/dL (7-18); BUN/Creat Ratio 14.9 RATIO (10-20); Calcium,Total 8.8 mg/dL (8.5-10.1); Chloride 107 mmol/L (98-107); Creatinine, Serum 1.34 mg/dL (0.70-1.30); EST Glomerular Filtration Rate 62 mL/min (>60); Est Glom Filt Rate - Afr Amer 75 mL/min (>60); Glucose 170 mg/dL (74-106); Potassium 4.8 mmol/L (3.5-5.1); Protein, Total 7.1 g/dL (6.4-8.2); Sodium Level 139 mmol/L (136-145)
[2019-10-03 20:07] LABS: HCV Quant. RNA PCR 50 IU/mL (.)
[2019-10-05 11:56] LABS: HCV log 10 1.699 (.)
== END ==
PROVIDERS: PCP Nurse Practitioner Family
DX: B18.2 Chronic viral hepatitis C (principal)
CPT/HCPCS: 36415; 80053; 85025; 87522

== ENCOUNTER 2020-05-19 17:02 | Inpatient (IN) | payer MEDICAID, SELFPAY ==
[2020-03-10 08:40] VITALS: BMI 23.6
[2020-05-19 17:03] VITALS: BP 146/68; PULSE 97; RESP 22; TEMP 36.9; O2SAT 100; BMI 23.7
--- NOTE | 2020-05-19 17:31 | EKG12_ITS ---
Test Reason : SOB Blood Pressure : / mmHG Vent. Rate : 093 BPM Atrial Rate : 093 BPM P-R Int : 140 ms QRS Dur : 086 ms QT Int : 388 ms P-R-T Axes : 055 053 018 degrees QTc Int : 482 ms Normal sinus rhythm Low voltage QRS (Limb Leads) Nonspecific T wave abnormality Prolonged QT Abnormal ECG Confirmed by MOE RUIZ, ALKA ([id number]), health editor ARTURO SMITH ([id number]) on 05/23/2020 12:47:44 PM Referred By: CONI Confirmed By:ALKA ROSA MD
[2020-05-19 17:42] LABS: Absolute Lymphocyte Count 0.95 X10^3/uL (0.83-4.51); Absolute Neutrophil Count 14.1 X10^3/uL (2.0-7.7); Basophil# 0.14 X10^3/uL; Basophil% 0.9 % (0-1); Hemoglobin 13.9 g/dL (13.0-16.5); Lymphocyte # 0.95 X10^3/ul (4.0); Mean Corp Hgb Conc 33.1 g/dL (32-36); Mean Corpuscular Hgb 30.7 pg (27.0-32.0); Mean Corpuscular Volume 92.7 fL (80-94); Mean Platelet Vol. 10.1 fl (6.2-12.0); Monocyte# 0.62 X10^3/uL; Monocyte% 3.9 % (0-10); NRBC Flagged by Analyzer 0 % (0-5); Neutrophil # 14.11 X10^3/uL (2.7-7.7); Neutrophil % 88.7 % (47-70); Platelet Count 316 K/mm3 (150-450); RBC Distribution Width CV 15.3 % (11.6-14.6); Red Blood Count 4.53 M/mm3 (4.6-6.2); White Blood Count 15.9 K/mm3 (4.4-11.0)
[2020-05-19] MEDS: Ondansetron 4 MG/2 ML Vial IV (17:55)
[2020-05-19] MEDS: 0.9% Normal Saline 1,000 ML 1000 ML IV (17:55)
[2020-05-19] MEDS: MethylPREDNISolone 125 MG/2 ML Vial IV (17:55)
[2020-05-19] MEDS: Famotidine 200 MG/20 ML MDV 40 MG in 0.9% Normal Saline (Pres. free 6 ML 300 MG IV (18:10)
[2020-05-19 18:13] LABS: ALB/GLOB Ratio 0.8 RATIO (0.9-2.4); AST(SGOT) 96 U/L (15-37); Alanine Aminotransfer ALT/SGPT 63 U/L (16-61); Albumin, Serum 3.2 g/dL (3.2-5.0); Alkaline Phosphatase 50 U/L (45-117); Anion Gap 25 (5-15); BUN 48 mg/dL (7-18); BUN/Creat Ratio 23.8 RATIO (10-20); Calcium,Total 8.1 mg/dL (8.5-10.1); Chloride 89 mmol/L (98-107); Creatinine, Serum 2.02 mg/dL (0.70-1.30); EST Glomerular Filtration Rate 38 mL/min (>60); Est Glom Filt Rate - Afr Amer 46 mL/min (>60); Estimated Creatinine Clearance 51.75 ml/min; Globulin 3.8 g/dL (2.2-4.2); Glucose 142 mg/dL (74-106); Lipase 49 U/L (73-393); Potassium 5.2 mmol/L (3.5-5.1); Sodium Level 135 mmol/L (136-145)
--- NOTE | 2020-05-19 19:23 | ED.RN ---
lactic acid of 8.0 reported to
[2020-05-19 19:43] VITALS: BP 164/98; PULSE 83; RESP 13; O2SAT 98
[2020-05-19] MEDS: 0.9% Normal Saline 1,000 ML 999 ML IV (19:44)
--- NOTE | 2020-05-19 20:07 | ED.DCSUM_ITS ---
- ER Visit Summary Date of Service: 05/19/20 Chief Complaint: [Nausea and vomiting and swollen bottom lip] History of Present Illness: The patient is a 44 M [resents to the emergency department with a swollen bottom lip that he noticed this morning. Patient states that he has been vomiting frequently for the last 3 to 4 days. Patient denies any diarrhea. Patient denies any abdominal pain. Patient is a diabetic and checked his blood sugar before coming to the ER and it was in the 150s. Patient does have history of hep C however he states that he has been cured of it. Patient's had no prior surgical history.] Physical Examination: HEENT-PERRLA, EOMI. Cranial nerves II through XII grossly intact. TMs clear. Mucous membranes moist. No adenopathy. Cardiovascular-regular rate and rhythm without murmur or ectopy Lungs-clear to auscultation, chest wall stable without crepitus or subcu emphysema Abdomen-normoactive bowel sounds, soft, nontender, no rebound or rigidity, no peritoneal signs. Extremities-intact ?4, normal range of motion, normal pulses, atraumatic [] Test Results: [EKG obtained arrival shows sinus rhythm with a ventricular rate of 90 bpm. Patient did have a prolonged QT. QTC was 482. CBC with differential showed a white of 15.9, hemoglobin 13.9, hematocrit 316. Chemistries unremarkable. BUN 48 and creatinine 2.02. Lipase was normal. He did have a slight elevation in his ALT at 63 and AST of 96. Alk phos was 50 and total bilirubin was 1.0. Lactate was elevated at 8.0. COVID-19 test ordered as he has had a cough for a couple of days.] Emergency Department Course and Treatment: [IV line was tablets. Patient was given a liter normal same fluid bolus followed by second liter. He was started on Zofran initially but he continued to vomit and was ordered Phenergan. G astroccult obtained was positive.] Treatment Plan: [Admit] Disposition: [Admit] Impression: [Gastritis Intractable nausea vomiting Dehydration Upper GI bleed Renal insufficiency] This note was generated with [employer] dictation software. It may contain incorrect words, spelling, and punctuation that were not noted in review of the chart prior to signing ED Disposition - Plan for ED Patient: Referrals: Winsome Apple [facility], [facility] [Primary Care Provider] -
[2020-05-19] MEDS: proMETHazine 25 MG/ML Syringe 12.5 MG IV (20:24)
[2020-05-19 20:25] VITALS: BP 170/99; PULSE 85; RESP 16; TEMP 37.1; O2SAT 98
--- NOTE | 2020-05-19 20:31 | HP.PCM_ITS ---
Problem List (1) Type 1 diabetes mellitus Status: Chronic Qualifiers: (2) Liver cirrhosis Status: Chronic (3) History of pancreatitis Status: Chronic (4) History of alcohol use Status: Chronic History of Present Illness Date of Admission: 05/19/20 Chief Complaint: Swollen lips, nausea and vomiting. The patient is a 44 year old M with past medical history as mentioned above presented to the emergency room because he is concerned about developing an allergic reaction. He came to the emergency department because his lips were swollen and he thought that he may have allergic reaction. He felt a tickle in his throat but denies shortness of breath. He denied skin rash, itching. He denied is a new medication. His other complaint was persistent nausea and vomiting over the last 3 days, it has been constant since he stopped drinking 3 days ago, not able to keep any food or liquid down to his stomach, no associated abdominal pain and without aggravating or relieving factors. He denied abdominal pain, diarrhea or constipation. He denied fever or chills. He reported mild dry cough. He has history of alcohol abuse and he has been drinking heavily, last drink was 3 days ago before his symptoms started. He had a history of alcoholic liver cirrhosis and currently, he is not on any medication for it. He had a history of type 2 diabetes mellitus and patient mentioned that his blood sugar has been under fair control although his hemoglobin A1c was 11.8% on August,. In the emergency department, his blood pressure was slight elevated, other vital signs were stable, he was afebrile. Team blood work was remarkable for leukocytosis with neutrophilia, potassium was 5.2, BUN is 48, creatinine is 2.02. LFT revealed slightly elevated liver transaminases, bilirubin and alkaline phosphatase are normal. Lipase was normal. Lactic acid was 8. COVID-19 PCR was negative. EKG revealed normal sinus rhythm, prolonged QTC, no acute skin changes. Troponin was negative. Blood alcohol level was 46. He is being admitted for acute kidney injury with mild hyperkalemia, intractable nausea and vomiting likely due to gastritis secondary to drinking alcohol and also found to have lactic acidosis which is probably due to persistent nausea and vomiting and dehydration. Past Medical History Past Medical History (Chronic Problems): Chronic Problems (Last Reviewed 03/10/20 @ 09:[address] Armin Del Toro MD) Type 1 diabetes mellitus (Chronic) Liver cirrhosis (Chronic) History of tobacco abuse (Chronic) Pseudocyst Pancreatic Tail (Chronic) History of pancreatitis (Chronic) History of alcohol use (Chronic) Medical History: Medical History (Last Reviewed 03/10/20 @ 09:[address] Armin Del Toro MD) Asthma J45.909 Hernia K46.9 Neuropathy G62.9 Type 1 diabetes mellitus E10.9 Vitamin D deficiency E55.9 Allergies sulfamethoxazole [From Bactrim] Allergy (Verified 05/19/20 17:19) Hives trimethoprim [From Bactrim] Allergy (Verified 05/19/20 17:19) Hives Home Medications: Ambulatory Orders Medication Instructions Recorded Albuterol IH (ProAir) [Proair Hfa] 2 puff INHALATION Q4H PRN 01/20/18 Cholecalciferol (VIT D3) [Vitamin 1,000 unit PO DAILY 01/20/18 D3] Ibuprofen 600 mg PO PRN PRN 01/20/18 Gabapentin [Neurontin] 300 mg PO TID 09/25/18 blood sugar diagnostic See Rx Instructions .ROUTE 09/17/19 .MEDSUPPLY #100 ea pen needle, diabetic 32 gauge x See Rx Instructions .ROUTE 09/17/19/32 .MEDSUPPLY #100 ea blood-glucose meter See Rx Instructions .ROUTE 04/25/20 .MEDSUPPLY #1 ea Insulin Aspart [Insulin Aspart 6 unit SC TIDCM 05/19/20 Flexpen] Insulin Degludec [Tresiba 18 unit SC DAILY 05/19/20 FlexTouch U-100] Surgical History: Surgical History (Last Reviewed 05/19/20 @ 20:[address] Kenyetta Pedraza MD) History of tooth extraction K08.409 Surgical History: herniorrhaphy, - - Hernia repair. Psychiatric History: No pertinent psych hx Lives: With Family Smoking Status: Current every day smoker Alcohol: Heavy Drugs: None - *Family History Maternal Family History: Family History (Last Reviewed 05/19/20 @ 20:[address] Kenyetta Pedraza MD) Other Diabetes Heart disease Hypertension History Items: Heart Disease Paternal Family History: Family History (Last Reviewed 05/19/20 @ 20:[address] Kenyetta Pedraza MD) Other Diabetes Heart disease Hypertension History Items: Diabetes Review of Systems Constitutional: Reports: Anorexia. Denies: Chills, Fever, Weakness, Fatigue Eyes: Denies: Blurred vision, Double vision, Drainage, Redness HEENT: Denies: Difficulty Hearing, Ear Pain, Eye Pain, Nasal Congestion, Sore Throat Cardiovascular: Denies: Chest Pain, Chest Pressure, Chest Tightness, Heaviness, Light Headedness, Palpitations, Syncope Respiratory: Reports: Cough. Denies: Pleuritic Pain, Shortness of Breath, Sputum production, Wheezing Gastrointestinal: Reports: Nausea, Vomiting. Denies: Abdominal Pain, Constipation, Diarrhea, Hematochezia, Melena Genitourinary: Denies: Dysuria, Frequency, Hematuria Musculoskeletal: Denies: Arm Pain, Back Pain, Foot Pain Skin: Denies: Dryness, Rash Neurological: Denies: Balance problems, Double vision, Change in Speech, Slurred speech, Confusion, Headaches, Incoordination, Numbness Psychiatric: Denies: Anxiety, Depression Endocrine: Denies: Change in Body Habitus, Polydipsia, Polyuria VTE Information - Inpt Only VTE Present on Admission: No VTE Mechan Device Prophylaxis: None VTE Pharm Prophylaxis ordered?: No - Physical Exam Vitals/I&O's: Vital Signs Temp Pulse Resp BP Pulse Ox 98.8 F 85 16 170/99 H 98 05/19/20 20:25 05/19/20 20:25 05/19/20 20:25 05/19/20 20:25 05/19/20 20:25 Oxygen Delivery Method Room Air Weight: 175 lb Body Mass Index (BMI) 23.7 Finger Stick Blood Glucose 264 Intake and Output for Last 24 Hours 05/17/20 05/18/20 05/19/20 23:59 23:59 23:59 Intake Total 1010 / 1010 Balance 1010 / 1010 General: Alert, Oriented x3, Cooperative, No apparent distress HEENT: Atraumatic, PERRLA, EOMI, Normocephalic Oral: Moist Mucosa, No Gingival or Mucosal Lesions/ Ulcerations, - - Minimal swelling of both lips, more prominent on the lower lip. Neck: Supple, No JVD, Negative Carotid Bruits, Trachea Midline, Thyroid Normal Size and Texture Lungs: Clear to auscultation, Normal air movement, No rhonchi, No wheeze, No rales Cardiovascular: Regular rate, Regular Rhythm, Normal S1, Normal S2, PMI Normal Abdomen: Bowel Sounds Present, Soft, Non Tender, Non-Distended, No Hepato- splenomegaly Extremities: No clubbing, No cyanosis, No edema Skin: No rashes, No breakdown Lymphatic: No Cervical, Supraclavicular, or Inguinal Adenopathy Neurological: Cranial nerves II-XII grossly intact, Motor Exam 5/5 strength throughout Psych/Mental Status: Normal Affect, Appropriate, Alert and oriented to time, p lace, person, mood and affect Microbiology Past 72 Hours 05/19/20 19:40 Gastric Fluid/Contents Gastric Occult Blood - Final Laboratory Results 05/19/20 12:25: WBC 15.9 H, RBC 4.53 L, Hgb 13.9, Hct 42.0, MCV 92.7, MCH 30.7, MCHC 33.1, RDW Std Deviation 52.0 H, RDW Coeff of Andreas 15.3 H, Plt Count 316, MPV 10.1, Immature Gran % (Auto) 0.500, Neut % (Auto) 88.7 H, Lymph % (Auto) 6.0 L, Sibley % (Auto) 3.9, Eos % (Auto) 0.0, Baso % (Auto) 0.9, Absolute Neuts (auto) 14.1 H, Absolute Lymphs (auto) 0.95, Nucleated RBC % 0 05/19/20 12:25: Sodium 135 L, Potassium 5.2 H, Chloride 89 L, Carbon Dioxide 21.0, Anion Gap 25 H, BUN 48 H, Creatinine 2.02 H, Estim Creat Clear Calc 51.75, Est GFR (MDRD) Af Amer 46 L, Est GFR (MDRD) Non-Af 38 L, BUN/Creatinine Ratio 23.8 H, Glucose 142 H, Calcium 8.1 L, Total Bilirubin 1.00, AST 96 H, ALT 63 H, Alkaline Phosphatase 50, Troponin I < 0.015, Total Protein 7.0, Albumin 3.2, Globulin 3.8, Albumin/Globulin Ratio 0.8 L, Lipase 49 L 05/19/20 12:25: Ethyl Alcohol 46.0 05/19/20 17:55: Lactic Acid 8.0 H* 05/19/20 18:00: COVID-19 (PAVAN) Cancelled 05/19/20 18:00: COVID-19 (PAVAN) Pending Microbiology 05/19/20 19:40 Gastric Fluid/Contents Gastric Occult Blood - Final Assessment/Plan This is a 44 years old male patient presented to the emergency room because of swollen lips, persistent nausea and vomiting and he was found to have acute kidney injury with mild hyperkalemia, leukocytosis, lactic acidosis and he is being admitted for evaluation and treatment. #1 acute kidney injury/mild hyperkalemia: Due to persistent nausea and vomiting which anterior might be due to gastritis. Most recent creatinine was 1.34 on September,. Patient looks very dehydrated. Plan: Admit to [facility] floor, IV fluids, encourage oral intake, input output chart, avoid nephrotoxic drugs, repeat CBC and BMP tomorrow morning. #2 intractable nausea and vomiting: Likely due to gastritis secondary to alcohol abuse. Gastric occult blood was positive. Patient denied any hematemesis or hematochezia, no melena. Plan: IV fluids, start IV Protonix twice daily. #3 lactic acidosis/leukocytosis: This is likely reactive secondary to persistent nausea and vomiting. Patient has been afebrile. COVID-19 PCR was negative. Plan: Chest x-ray, urinalysis, IV fluids, repeat lactic acid in 3 hours. At this time, no indication to start IV antibiotics. #4 type 1 diabetes mellitus: ADA diet, Accu-Cheks, insulin sliding scale, continue insulin aspart 3 times daily and Tresiba #5 alcohol abuse: Last drink was 3 days ago, blood alcohol level is 46. Currently, no evidence of alcohol withdrawal. Plan to monitor. #6 alcoholic liver cirrhosis: Compensated, stable. #7 history of pancreatitis: Lipase was normal. LFT revealed slight elevated liver transaminases, bilirubin and alkaline phosphatase are normal. He denies any abdominal pain, abdominal examination is benign. #8 tobacco abuse: NicoDerm patch if desired. #9 DVT prophylaxis: Low risk patient, no prophylaxis indicated. This note was generated with [employer] dictation software. It may contain incorrect words, spelling, and punctuation that were not noted in checking the note before signing. Inpatient E&M: 83613 Init Hosp L2
[2020-05-19 22:08] LABS: Reflex Lactate? Y
[2020-05-19 23:03] LABS: Lactic Acid 2.7 mmol/L (0.4-1.9)
[2020-05-19 23:11] VITALS: BP 159/100; PULSE 91; RESP 18; O2SAT 97
[2020-05-19 23:32] VITALS: BMI 27.1
[2020-05-19 23:36] VITALS: BP 167/105; PULSE 86; RESP 18; TEMP 37.1; O2SAT 100
[2020-05-19 23:39] VITALS: BMI 27.1
[2020-05-19 23:44] VITALS: O2SAT 97
[2020-05-19] MEDS: 0.9% Saline Lock 10 ML Syringe IV (23:48)
[2020-05-19] MEDS: 0.9% Normal Saline 1,000 ML 125 ML IV (23:49)
--- NOTE | 2020-05-19 23:50 | RAD_ITS ---
STUDY: X-RAY CHEST REASON FOR EXAM: Male, 44 years old. Cough, lactic acidosis TECHNIQUE: Single AP portable view of the chest. COMPARISON: Comparison is made with prior study dated 09/03/2018. FINDINGS: The lungs are clear and expanded. There is no demonstrated pleural abnormality. Normal size heart. Normal mediastinum and mc. Normal visualized pulmonary arteries. Normal visualized aortic arch and descending thoracic aorta. Normal visualized thoracic spine. Nonhealed fracture of the proximal neck of the left humerus. There is no demonstrated abnormality of the visualized soft tissue structures of the upper abdomen. RAD/Chest 1 View (Portable) IMPRESSION: Normal x-ray examination of the chest. Electronically Signed: Mauricio Velasquez, at 10:28 EDT , Service support ,
[2020-05-20] VITALS (9 sets, daily range): BP systolic 121–173; BP diastolic 81–97; PULSE 78–98; RESP 14–18; TEMP 36.4–36.9; O2SAT 99–100
[2020-05-20 00:06] LABS: Bedside Glucose 244 mg/dL (70-110)
[2020-05-20] MEDS: Insulin Lispro 100 UNIT/ML INSULN.PEN SC ×5 (00:07→22:08)
[2020-05-20 03:16] LABS: Mucous, Urine 0 SEEN /hpf (<or=2+)
[2020-05-20 03:28] LABS: Color, Urine Yellow (Yellow); Glucose, Dipstick 50 mg/dl (Normal); Leukocyte Esterase-Dipstick Negative /ul (Negative); Nitrite-Dipstick Negative (Negative); Occult Blood-Urine 50 /ul (Negative); Protein-Dipstick 500 mg/dl (Negative); Specific Gravity, Urine 1.025 (1.002-1.030); Urine Bilirubin Dipstick Negative (Negative); Urine Clarity Clear (Clear); Urine Urobilinogen Normal (Normal)
[2020-05-20 03:39] LABS: Ketone-Dipstick 150 mg/dl (Negative)
[2020-05-20 03:42] LABS: Bacteria RARE /hpf (None Seen); Hyaline Cast 5-10 SEEN /lpf (0-5); Red Blood Cells-Urine 0-5 SEEN /hpf (0-5); Squamous Epithelial Cells - UA 0-5 SEEN /hpf (0-5); White Blood Cells 0-5 SEEN /hpf (0-5)
[2020-05-20 05:38] LABS: Amphetamine Urine VISTA NEGATIVE (<1000 ng/mL); Barbiturate Urine VISTA NEGATIVE (< 200 ng/mL); Benzodiazepine Urine VISTA NEGATIVE (< 200 ng/mL); Cocaine Urine VISTA NEGATIVE (< 300 ng/mL); Ecstacy Urine VISTA NEGATIVE (< 500 ng/mL); Methadone Urine VISTA NEGATIVE (< 300 ng/mL); PCP Urine VISTA NEGATIVE (< 25 ng/mL); THC Urine VISTA NEGATIVE (< 50 ng/mL); Vista UDS pH Range 5
[2020-05-20] MEDS: hydrALAZINE 20 MG/ML Vial 10 MG IV (06:08)
[2020-05-20] MEDS: Ondansetron 4 MG/2 ML Vial IV (06:08)
[2020-05-20] MEDS: 0.9% Saline Lock 10 ML Syringe IV ×2 (06:08→22:08)
[2020-05-20 06:26] LABS: Bedside Glucose 250 mg/dL (70-110)
[2020-05-20] MEDS: 0.9% Normal Saline 1,000 ML 125 ML IV ×2 (07:19→17:20)
[2020-05-20 07:27] LABS: Absolute Lymphocyte Count 0.79 X10^3/uL (0.83-4.51); Absolute Neutrophil Count 8.6 X10^3/uL (2.0-7.7); Basophil# 0.05 X10^3/uL; Basophil% 0.5 % (0-1); Hematocrit 38.3 % (40-54); Hemoglobin 12.3 g/dL (13.0-16.5); Lymphocyte # 0.79 X10^3/ul (4.0); Lymphocyte % 7.6 % (19-41); Mean Corp Hgb Conc 32.1 g/dL (32-36); Mean Corpuscular Hgb 30.6 pg (27.0-32.0); Mean Corpuscular Volume 95.3 fL (80-94); Mean Platelet Vol. 10.4 fl (6.2-12.0); Monocyte% 8.7 % (0-10); NRBC Flagged by Analyzer 0 % (0-5); Neutrophil # 8.57 X10^3/uL (2.7-7.7); Neutrophil % 82.6 % (47-70); Platelet Count 264 K/mm3 (150-450); RBC Distribution Width CV 15.8 % (11.6-14.6); RBC Distribution Width SD 54.7 fl (35.1-43.9); Red Blood Count 4.02 M/mm3 (4.6-6.2); White Blood Count 10.4 K/mm3 (4.4-11.0)
--- NOTE | 2020-05-20 07:45 | PN_ITS ---
Reason for Visit: Follow-up for acute kidney injury Objective: Patient has history of chronic alcohol use and chronic hepatitis C. Patient completed hepatitis C history treatment about 6 months ago. It seems patient has compensated alcoholic and hepatitis C cirrhosis. Still drinks a bottle of vodka every day. Admitted with 3 days of nausea and vomiting, dehydration resulting into acute kidney injury. Denies acute alcohol withdrawal symptoms of hallucinations, seizure, anxiety, restlessness cramps or delusions. Physical exam General: Alert, Oriented x3, Cooperative HEENT: Atraumatic, PERRLA, EOMI, Normocephalic Oral: No Gingival or Mucosal Lesions/ Ulcerations Neck: Supple, No JVD, Negative Carotid Bruits Lungs: Air entry diminished in bilateral lung bases. No crepitation/rhonchi Cardiovascular: Regular rate, Regular Rhythm, Normal S1, Normal S2, No murmurs Abdomen: Bowel Sounds Present, Soft, Non Tender, Non-Distended. No clinically palpable ascites : No renal angle tenderness. No suprapubic tenderness. Extremities: No edema, Capillary Refill Less than 3 Seconds Skin: No rashes, No breakdown Musculoskeletal: No Tenderness to Palpation of Joints or Extremities. Mild tremors in hand. Neurological: Cranial nerves II-XII grossly intact, Deep Tendon Reflexes 2+/4 and Symmetrical, Neuro grossly intact Psych/Mental Status: Normal Affect, Appropriate. Vitals/I&O's: Vital Signs Temp Pulse Resp BP Pulse Ox 97.9 F 98 18 147/87 H 99 05/20/20 05:25 05/20/20 07:16 05/20/20 05:25 05/20/20 07:16 05/20/20 07:10 Oxygen Delivery Method Room Air Weight: 194 lb 7.163 oz Body Mass Index (BMI) 27.1 Finger Stick Blood Glucose 264 Intake and Output for Last 24 Hours 05/18/20 05/19/20 05/20/20 23:59 23:59 23:59 Intake Total 2009 1447.50 / 1447.50 Balance 2009 1447.50 / 1447.50 Microbiology Past 72 Hours 05/19/20 19:40 Gastric Fluid/Contents Gastric Occult Blood - Final Laboratory Results 05/19/20 12:25: WBC 15.9 H, RBC 4.53 L, Hgb 13.9, Hct 42.0, MCV 92.7, MCH 30.7, MCHC 33.1, RDW Std Deviation 52.0 H, RDW Coeff of Andreas 15.3 H, Plt Count 316, MPV 10.1, Immature Gran % (Auto) 0.500, Neut % (Auto) 88.7 H, Lymph % (Auto) 6.0 L, Clinch % (Auto) 3.9, Eos % (Auto) 0.0, Baso % (Auto) 0.9, Absolute Neuts (auto) 14.1 H, Absolute Lymphs (auto) 0.95, Nucleated RBC % 0 05/19/20 12:25: Sodium 135 L, Potassium 5.2 H, Chloride 89 L, Carbon Dioxide 21.0, Anion Gap 25 H, BUN 48 H, Creatinine 2.02 H, Estim Creat Clear Calc 51.75, Est GFR (MDRD) Af Amer 46 L, Est GFR (MDRD) Non-Af 38 L, BUN/Creatinine Ratio 23.8 H, Glucose 142 H, Calcium 8.1 L, Total Bilirubin 1.00, AST 96 H, ALT 63 H, Alkaline Phosphatase 50, Troponin I < 0.015, Total Protein 7.0, Albumin 3.2, Globulin 3.8, Albumin/Globulin Ratio 0.8 L, Lipase 49 L 05/19/20 12:25: Ethyl Alcohol 46.0 05/19/20 17:55: Lactic Acid 8.0 H* 05/19/20 18:00: COVID-19 (PAVAN) Cancelled 05/19/20 18:00: COVID-19 (PAVAN) Not Detected 05/19/20 22:25: Lactic Acid 2.7 H* 05/19/20 23:53: POC Glucose 244 H 05/20/20 03:00: Urine Color Yellow, Urine Clarity Clear, Urine pH 5.0, Ur Specific [place] 1.025, Urine Protein 500 H, Urine Glucose (UA) 50 H, Urine Ketones 150 H, Urine Occult Blood 50 H, Urine Nitrite Negative, Urine Bilirubin Negative, Urine Urobilinogen Normal, Ur Leukocyte Esterase Negative, Urine RBC 0-5 SEEN, Urine WBC 0-5 SEEN, Ur Squamous Epith Cells 0-5 SEEN, Urine Bacteria RARE, Hyaline Casts 5-10 SEEN, Urine Mucus 0 SEEN 05/20/20 05:20: Urine Opiates Screen NEGATIVE, Urine Methadone Screen NEGATIVE, Ur Barbiturates Screen NEGATIVE, Ur Phencyclidine Scrn NEGATIVE, Ur Amphetamines Screen NEGATIVE, U Methamphetamin-MDMA NEGATIVE, U Benzodiazepines Scrn NEGATIVE, Urine Cocaine Screen NEGATIVE, U Cannabinoids Screen NEGATIVE, Ur Drug Screen Comment 05/20/20 06:19: POC Glucose 250 H 05/20/20 06:45: WBC 10.4, RBC 4.02 L, Hgb 12.3 L, Hct 38.3 L, MCV 95.3 H, MCH 30.6, MCHC 32.1, RDW Std Deviation 54.7 H, RDW Coeff of Andreas 15.8 H, Plt Count 264, MPV 10.4, Immature Gran % (Auto) 0.600, Neut % (Auto) 82.6 H, Lymph % (Auto) 7.6 L, Clinch % (Auto) 8.7, Eos % (Auto) 0.0, Baso % (Auto) 0.5, Absolute Neuts (auto) 8.6 H, Absolute Lymphs (auto) 0.79 L, Nucleated RBC % 0 05/20/20 06:45: Sodium Pending, Potassium Pending, Chloride Pending, Carbon Dioxide Pending, Anion Gap Pending, BUN Pending, Creatinine Pending, Est GFR (MDRD) Af Amer Pending, Est GFR (MDRD) Non-Af Pending, BUN/Creatinine Ratio Pending, Glucose Pending, Calcium Pending, Total Bilirubin Pending, AST Pending, ALT Pending, Alkaline Phosphatase Pending, Total Protein Pending, Albumin Pending Current Medications Acetaminophen (Acetaminophen 325 Mg Tablet) 650 mg PO Q6H PRN PRN PRN Reason: Pain Score 1-10/Temp > 100.7 F Albuterol Sulfate (Albuterol 2.5 Mg/3 Ml Vial.Neb.) 2.5 mg INHALATION Q4H PRN PRN PRN Reason: Shortness of breath, wheezing Hydralazine HCl (Hydralazine 20 Mg/Ml Vial) 10 mg IV Q6H PRN PRN PRN Reason: BLOOD PRESSURE ELEVATION Last Admin: 05/20/20 06:08 Dose: 10 mg Documented by: Sodium Chloride () 1,000 mls @ 125 mls/hr IV .Q8H LAZARUS Last Admin: 05/20/20 07:19 Dose: 125 mls/hr Documented by: Pantoprazole Sodium 40 mg/ (Sodium Chloride) 110 mls @ 330 mls/hr IV Q12 LAZARUS Last Infusion: 05/20/20 00:44 Dose: Infused Documented by: Sodium Chloride () 250 mls @ 15 mls/hr IV .[id number] PRN PRN Reason: Saline Flush Sodium Chloride () 250 mls @ 15 mls/hr IV .[id number] PRN PRN Reason: Additional IVPB Infusion Influenza Virus Vaccine Quadrival (Influenza Vaccine (6mos+)/Pf 0.5 Ml Syringe) 0.5 ml IM .ONCE ONE Stop: 05/20/20 10:01 Insulin Human Lispro (Insulin Lispro 100 Unit/Ml Insuln.Pen) 0 unit SC ACHS LAZARUS; Protocol Last Admin: 05/20/20 06:21 Dose: 3 units Documented by: Nutritional Formula (Lactose Free) (Ensure Enlive 120 Ml Liquid) 120 ml PO 4X/DAY [facility] Ondansetron HCl (Ondansetron 4 Mg/2 Ml Vial) 4 mg IV Q8H PRN PRN PRN Reason: NAUSEA/VOMITING Last Admin: 05/20/20 06:08 Dose: 4 mg Documented by: Promethazine HCl (Promethazine 25 Mg/Ml Syringe) 6.25 mg IV Q6H PRN PRN PRN Reason: NAUSEA/VOMITING Senna/Docusate Sodium (Senna/Docusate Sodium 1 Tablet) 2 tablet PO BID PRN PRN PRN Reason: Constipation Sodium Chloride (0.9% Saline Lock 10 Ml Syringe) 10 - 40 ml IV UD PRN PRN Reason: SALINE FLUSH Last Admin: 05/20/20 06:08 Dose: 10 ml Documented by: STROKE Vital Signs/Narrative: Vital Signs Temp Pulse Resp BP BP Pulse Ox 05/20/20 07:16 98 147/87 H 05/20/20 07:10 99 05/20/20 06:08 80 173/97 H 05/20/20 05:25 97.9 F 80 18 173/97 H 100 05/20/20 05:04 78 18 Medical Necessity - Tobacco Use Smoking Status: Current every day smoker Tobacco Use: Cigarettes Assessment/Plan This is a 44 years old male patient presented to the emergency room because of swollen lips, persistent nausea and vomiting and he was found to have acute kidney injury with mild hyperkalemia, leukocytosis, lactic acidosis and he is being admitted for evaluation and treatment. #1 acute kidney injury/mild hyperkalemia, prerenal etiology Most recent creatinine was 1.34 on September,. Continue IV fluid support, monitor input output chart, avoid nephrotoxic drugs, monitor electrolytes and kidney function. #2 intractable nausea and vomiting: Likely due to gastritis secondary to alcohol abuse. Gastric occult blood was positive. Patient denied any hematemesis or hematochezia, no melena. IV PPI twice daily #3 lactic acidosis/leukocytosis: This is likely reactive secondary to persistent nausea and vomiting. Patient has been afebrile. COVID-19 PCR was negative. UA is negative for pyuria. Patient denies burning micturition, increased frequency and urgency. Chest x-ray reported normal. Repeat lactic acid improved to 2.7. Continue IV fluid support. Blood culture and urine culture are pending. Seems no sepsis or indication of antibiotic. #4 type 1 diabetes mellitus: Sugars still elevated 287, 250 and 358. Titrate up the insulin. Continue ADA diet, Accu-Cheks, insulin sliding scale, continue insulin aspart 3 times daily and Tresiba #5 Chronic alcohol use, chronic hepatitis C and alcoholic cirrhosis: Patient completed treatment for hepatitis C about 6 months ago. Clinically no ascites palpable. He has outpatient blood work pending for 6-month HCV PCR test. Drinks 1 bottle of vodka every day. Last drink 3 days ago. blood alcohol level is 46. Currently, no evidence of alcohol withdrawal. Plan to monitor. 6. History of pancreatitis: Lipase was normal. ALT and AST are trending down. Total bili normal. Alkaline phosphatase 50. #8 tobacco abuse: NicoDerm patch if desired. #9 DVT prophylaxis: Low risk patient, no prophylaxis indicated. Clinical Impression(s) from Imaging Studies Chest X-Ray 05/19/20 23:50 IMPRESSION: Normal x-ray examination of the chest. Microbiology Past 72 Hours 05/19/20 19:40 Gastric Fluid/Contents Gastric Occult Blood - Final Laboratory Results 05/19/20 12:25: WBC 15.9 H, RBC 4.53 L, Hgb 13.9, Hct 42.0, MCV 92.7, MCH 30.7, MCHC 33.1, RDW Std Deviation 52.0 H, RDW Coeff of Andreas 15.3 H, Plt Count 316, MPV 10.1, Immature Gran % (Auto) 0.500, Neut % (Auto) 88.7 H, Lymph % (Auto) 6.0 L, Clinch % (Auto) 3.9, Eos % (Auto) 0.0, Baso % (Auto) 0.9, Absolute Neuts (auto) 14.1 H, Absolute Lymphs (auto) 0.95, Nucleated RBC % 0 05/19/20 12:25: Sodium 135 L, Potassium 5.2 H, Chloride 89 L, Carbon Dioxide 21.0, Anion Gap 25 H, BUN 48 H, Creatinine 2.02 H, Estim Creat Clear Calc 51.75, Est GFR (MDRD) Af Amer 46 L, Est GFR (MDRD) Non-Af 38 L, BUN/Creatinine Ratio 23.8 H, Glucose 142 H, Calcium 8.1 L, Total Bilirubin 1.00, AST 96 H, ALT 63 H, Alkaline Phosphatase 50, Troponin I < 0.015, Total Protein 7.0, Albumin 3.2, Globulin 3.8, Albumin/Globulin Ratio 0.8 L, Lipase 49 L 05/19/20 12:25: Ethyl Alcohol 46.0 05/19/20 17:55: Lactic Acid 8.0 H* 05/19/20 18:00: COVID-19 (PAVAN) Cancelled 05/19/20 18:00: COVID-19 (PAVAN) Not Detected 05/19/20 22:25: Lactic Acid 2.7 H* 05/19/20 23:53: POC Glucose 244 H 05/20/20 03:00: Urine Color Yellow, Urine Clarity Clear, Urine pH 5.0, Ur Specific [place] 1.025, Urine Protein 500 H, Urine Glucose (UA) 50 H, Urine Ketones 150 H, Urine Occult Blood 50 H, Urine Nitrite Negative, Urine Bilirubin Negative, Urine Urobilinogen Normal, Ur Leukocyte Esterase Negative, Urine RBC 0-5 SEEN, Urine WBC 0-5 SEEN, Ur Squamous Epith Cells 0-5 SEEN, Urine Bacteria RARE, Hyaline Casts 5-10 SEEN, Urine Mucus 0 SEEN 05/20/20 05:20: Urine Opiates Screen NEGATIVE, Urine Methadone Screen NEGATIVE, Ur Barbiturates Screen NEGATIVE, Ur Phencyclidine Scrn NEGATIVE, Ur Amphetamines Screen NEGATIVE, U Methamphetamin-MDMA NEGATIVE, U Benzodiazepines Scrn NEGATIVE, Urine Cocaine Screen NEGATIVE, U Cannabinoids Screen NEGATIVE, Ur Drug Screen Comment 05/20/20 06:19: POC Glucose 250 H 05/20/20 06:45: WBC 10.4, RBC 4.02 L, Hgb 12.3 L, Hct 38.3 L, MCV 95.3 H, MCH 30.6, MCHC 32.1, RDW Std Deviation 54.7 H, RDW Coeff of Andreas 15.8 H, Plt Count 264, MPV 10.4, Immature Gran % (Auto) 0.600, Neut % (Auto) 82.6 H, Lymph % (Auto) 7.6 L, Clinch % (Auto) 8.7, Eos % (Auto) 0.0, Baso % (Auto) 0.5, Absolute Neuts (auto) 8.6 H, Absolute Lymphs (auto) 0.79 L, Nucleated RBC % 0 05/20/20 06:45: Sodium 133 L, Potassium 5.3 H, Chloride 95 L, Carbon Dioxide 16.0 L, Anion Gap 22 H, BUN 54 H, Creatinine 2.39 H, Estim Creat Clear Calc 42.45, Est GFR (MDRD) Af Amer 38 L, Est GFR (MDRD) Non-Af 32 L, BUN/Creatinine Ratio 22.6 H, Glucose 287 H, Calcium 7.3 L, Total Bilirubin 1.20 H, AST 68 H, ALT 50, Alkaline Phosphatase 45, Total Protein 6.1 L, Albumin 2.8 L, Globulin 3.3, Albumin/Globulin Ratio 0.8 L 05/20/20 11:42: POC Glucose 358 H Inpatient E&M: 21682 Subs Hosp L2
[2020-05-20 07:58] LABS: ALB/GLOB Ratio 0.8 RATIO (0.9-2.4); AST(SGOT) 68 U/L (15-37); Alanine Aminotransfer ALT/SGPT 50 U/L (16-61); Albumin, Serum 2.8 g/dL (3.2-5.0); Alkaline Phosphatase 45 U/L (45-117); Anion Gap 22 (5-15); BUN 54 mg/dL (7-18); BUN/Creat Ratio 22.6 RATIO (10-20); Calcium,Total 7.3 mg/dL (8.5-10.1); Chloride 95 mmol/L (98-107); Creatinine, Serum 2.39 mg/dL (0.70-1.30); EST Glomerular Filtration Rate 32 mL/min (>60); Est Glom Filt Rate - Afr Amer 38 mL/min (>60); Estimated Creatinine Clearance 42.45 ml/min; Globulin 3.3 g/dL (2.2-4.2); Glucose 287 mg/dL (74-106); Potassium 5.3 mmol/L (3.5-5.1); Protein, Total 6.1 g/dL (6.4-8.2); Sodium Level 133 mmol/L (136-145)
--- NOTE | 2020-05-20 10:56 | CASEMGMT ---
Social Work Note JOENS updated that pt has history of alcohol abuse. SW in to speak with pt. SW introduced self and role at [facility]. Pt is alert and orientated x3. Pt confirms that he has history of alcohol abuse with his most recent drink being either Saturday or Saturday Morning of this week. Pt states that he drinks Vodka and can drink about a bottle of it. Pt states he also has a history of drug use but states he is currently clean from drug use, states he just drinks alcohol. Pt states he was clean for a while from alcohol but fell off. Pt states he would like to stop drinking completely and was agreeable to taking counseling/treatment resources. Pt denied ever being in any kind of treatment for his drug and alcohol use. Pt does state he thinks he is developing anxiety and depression. Pt states he will psych himself out and get short of breath. Pt states about 2-3 years ago he had to be shipped out to [facility] and was in the ICU due to Ketoacidosis. Pt states he gets anxious feelings. SW explored both anxiety and depressive feelings/symptoms with pt. Pt states he does experience feelings of sadness, worthlessness, and hopelessness sometimes. Pt states his father recently last week. Pt states his father was 77 and was in poor health. Pt states he knew he was sick but didn't know he was that sick. SW provided support to pt. SW offered grief resources to pt and pt denied. Pt states that he lives with his mother and brother and they are good supports for him. Pt states he has good relationships with both his mother and brother. Pt does state his brother does drink but he would never force anything on me. Pt also states he has additional family and friends that are good support for him. Pt denied any history of suicidal thoughts/plans/ideations. Pt denied any current suicidal thoughts/plans/ideations. Pt states I would never do that. Pt states about 10 years ago his step son, but not really his step son because he's never been , killed himself and he saw what it did to his family and friends and again pt states I would never do that. Again, pt denied any current suicidal thoughts/plans/ideations. SW informed pt that counseling would help address both his anxiety/depression and his ETOH use. Pt agreeable to taking resources. SW provided pt with counseling resources. Pt thanked this worker. Pt denied additional needs or concerns. Kelly Barrera RECYCLING TECH, ASSOCIATE PROFESSOR OF MANAGEMENT
--- NOTE | 2020-05-20 11:15 | CASEMGMT ---
RN CM Face to Face with patient for initial transition planning/care coordination assessment. RN CM introduced self and role at [facility]. Patient lying in bed, alert and oriented. Patient willing to participate in assessment and is able to answer all questions appropriately. Care providers, pharmacy, and demographics verified. Patient wishes to discharge home, denies need for home health at this time. Patient states he has no further needs or concerns at this time. CM to follow for discharge planning needs that may arise. PCP: Ambika Specialists: [facility] Preferred Pharmacy: [facility] Insurance: [employer] Prescription Benefit: yes Living Will/HPOA: yes, mother Abby Holguin LNOK: mother Living Arrangements: Patient lives with mother in a 2 story home. Patient is independent and able to ambulate stairs. Transportation: self/mother DME/HHC: patient states he has cane, glucometer, test strips, and insulin pens at home. Patient denies previous HHC. Disposition Plan: Patient to discharge home with family support and follow-up plans in place. Kelly VILA, RN, CM
[2020-05-20] MEDS: Glucerna Shake 120 ML LIQUID PO ×2 (11:47→17:20)
[2020-05-20] MEDS: Insulin Lispro 100 UNIT/ML INSULN.PEN 6 UNIT SC (11:48)
[2020-05-20 11:50] LABS: Bedside Glucose 358 mg/dL (70-110)
[2020-05-20] MEDS: Gabapentin 300 MG Capsule PO ×2 (13:01→17:22)
[2020-05-20 15:35] LABS: Bedside Glucose 315 mg/dL (70-110)
[2020-05-20 16:36] LABS: Bedside Glucose 336 mg/dL (70-110)
[2020-05-20] MEDS: Insulin Lispro 100 UNIT/ML INSULN.PEN 12 UNIT SC (17:21)
[2020-05-20 22:20] LABS: Bedside Glucose 177 mg/dL (70-110)
[2020-05-21 02:17] VITALS: BP 150/95; PULSE 83; RESP 18; TEMP 36.9; O2SAT 100
[2020-05-21] MEDS: 0.9% Normal Saline 1,000 ML 125 ML IV ×2 (02:20→11:10)
[2020-05-21 07:16] VITALS: O2SAT 97
[2020-05-21 07:57] VITALS: BP 141/95; PULSE 81; RESP 18; TEMP 36.8; O2SAT 99
[2020-05-21] MEDS: Insulin Lispro 100 UNIT/ML INSULN.PEN 12 UNIT SC ×2 (08:01→11:14)
[2020-05-21] MEDS: Insulin Lispro 100 UNIT/ML INSULN.PEN SC ×2 (08:02→11:15)
[2020-05-21] MEDS: Glucerna Shake 120 ML LIQUID PO ×2 (08:07→11:20)
[2020-05-21] MEDS: Gabapentin 300 MG Capsule PO ×2 (08:07→11:16)
[2020-05-21 08:10] LABS: Bedside Glucose 223 mg/dL (70-110)
[2020-05-21 10:03] LABS: Absolute Lymphocyte Count 1.52 X10^3/uL (0.83-4.51); Basophil# 0.04 X10^3/uL; Basophil% 0.5 % (0-1); Eosinophil# 0.04 X10^3/uL; Eosinophils% 0.5 % (0-5); Hematocrit 34.8 % (40-54); Hemoglobin 11.5 g/dL (13.0-16.5); Lymphocyte # 1.52 X10^3/ul (4.0); Lymphocyte % 18.6 % (19-41); Mean Corpuscular Hgb 31.5 pg (27.0-32.0); Mean Corpuscular Volume 95.3 fL (80-94); Mean Platelet Vol. 10.5 fl (6.2-12.0); Monocyte# 0.54 X10^3/uL; Monocyte% 6.6 % (0-10); NRBC Flagged by Analyzer 0 % (0-5); Neutrophil % 73.3 % (47-70); Platelet Count 194 K/mm3 (150-450); RBC Distribution Width CV 15.6 % (11.6-14.6); RBC Distribution Width SD 55.2 fl (35.1-43.9); Red Blood Count 3.65 M/mm3 (4.6-6.2); White Blood Count 8.2 K/mm3 (4.4-11.0)
[2020-05-21 10:45] LABS: Anion Gap 11 (5-15); BUN 44 mg/dL (7-18); BUN/Creat Ratio 22.9 RATIO (10-20); Calcium,Total 7.4 mg/dL (8.5-10.1); Chloride 101 mmol/L (98-107); Creatinine, Serum 1.92 mg/dL (0.70-1.30); EST Glomerular Filtration Rate 41 mL/min (>60); Est Glom Filt Rate - Afr Amer 49 mL/min (>60); Estimated Creatinine Clearance 52.84 ml/min; Glucose 309 mg/dL (74-106); Magnesium 1.7 mg/dL (1.6-2.6); Phosphorus 1.2 mg/dL (2.5-4.9); Potassium 4.2 mmol/L (3.5-5.1); Sodium Level 133 mmol/L (136-145)
--- NOTE | 2020-05-21 11:20 | DCINST_ITS ---
- Discharge Diagnoses Current Active Problems: Current Active and Chronic Problems (Last Reviewed 03/10/20 @ 09:[address] Armin Del Toro MD) Type 1 diabetes mellitus (Chronic) Liver cirrhosis (Chronic) History of pancreatitis (Chronic) History of alcohol use (Chronic) You will use the following diet at home:: Calorie/Carbohydrate Controlled (specify 1200, 1400, etc) - carb controlled Your food should be the consistency of: Regular Discharge Activity: May Not Drive Call your doctor if you observe: Fever of 101 or Higher, Coldness, Increased Pain, Numbness or Tingling, Inability to urinate, Shortness of breath, Dizziness, Fainting spells, Swelling in the ankles, Chest pain, Prolonged hiccoughing, Increased palpitations (irregular heartbeat), Uncontrolled pain Allergies/Adverse Reactions: Allergies sulfamethoxazole [From Bactrim] Allergy (Verified 05/19/20 17:19) Hives trimethoprim [From Bactrim] Allergy (Verified 05/19/20 17:19) Hives Medications to take at Discharge Albuterol IH (ProAir) [Proair Hfa] 2 puff INHALATION Q4H PRN 01/20/18 Cholecalciferol (VIT D3) [Vitamin D3] 1,000 unit PO DAILY 01/20/18 Gabapentin [Neurontin] 300 mg PO TID 09/25/18 blood sugar diagnostic See Rx Instructions .ROUTE .MEDSUPPLY #100 ea 09/17/19 pen needle, diabetic 32 gauge x 32 See Rx Instructions .ROUTE .MEDSUPPLY #100 ea 09/17/19 blood-glucose meter See Rx Instructions .ROUTE .MEDSUPPLY #1 ea 04/25/20 Folic Acid 1 mg PO DAILY #30 tab 05/21/20 Insulin Aspart [Insulin Aspart Flexpen] 6 unit SC TIDCM #0 05/21/20 Insulin Degludec [Tresiba Flextouch U-100] 25 unit SC DAILY #0 05/21/20 Pantoprazole Sodium [Protonix] 40 mg PO DAILY #30 tab 05/21/20 Thiamine HCl 100 mg PO DAILY #30 tab 05/21/20 The following prescriptions were given: Folic Acid 1 mg PO DAILY #30 tab Transmission Status: Pending to [id number] Pantoprazole Sodium [Protonix] 40 mg PO DAILY #30 tab Transmission Status: Pending to [id number] Thiamine HCl 100 mg PO DAILY #30 tab Transmission Status: Pending to [id number] Primary Care Physician: Winsome Apple AUTOMOBILE ASSEMBLY SUPERVISOR, AUTOMOBILE ASSEMBLY SUPERVISOR-C [Primary Care Provider] - Please follow up with your Primary Care Physician in: in 1 with [facility] lab Test Results: Test results from this visit will be discussed in further detail at your follow- up appointment, if applicable. Please Follow Up With: Armin Del Toro MD When: DM-2, glucose control
--- NOTE | 2020-05-21 11:33 | NURSING ---
spent approx 20min with patient discussed diabetes, alcohol consumption, 180 and AA. Pt receptive to information and able to identify stressors including father passing away 2 weeks ago. Pt does state he has a support system but is reluctant to reach out to them. Emotional support given. pt denies all further needs including pain needs at this time. call light within reach
[2020-05-21 11:35] LABS: Bedside Glucose 277 mg/dL (70-110)
--- NOTE | 2020-05-21 12:17 | PCM.DC.SUM ---
Discharge Date and Diagnosis Date of Admission: 05/19/20 Date of Discharge: 05/21/20 - Primary Discharge Diagnosis Acute Problems: Acute kidney injury with hyperkalemia on CKD stage III Diabetic nephropathy - Secondary Discharge Diagnosis Chronic Problems: Chronic Problems (Last Reviewed 03/10/20 @ 09:[address] Armin Del Toro MD) Type 1 diabetes mellitus (Chronic) Liver cirrhosis (Chronic) History of tobacco abuse (Chronic) Pseudocyst Pancreatic Tail (Chronic) History of pancreatitis (Chronic) History of alcohol use (Chronic) Hospital Course and Treatment Operations: None Summary of Care Provided: [] This is a 44 years old male patient presented to the emergency room because of swollen lips, persistent nausea and vomiting and he was found to have acute kidney injury with mild hyperkalemia, leukocytosis, lactic acidosis and he is being admitted for evaluation and treatment. #1 acute kidney injury/mild hyperkalemia, prerenal etiology, CKD stage III, diabetic nephropathy: Most recent creatinine was 1.34 on September,. Patient was treated with IV fluid normal saline and had good urine output. BUN/creatinine improved from 48/2.02-44/1.92. Patient most likely has diabetic nephropathy. Advised to follow with PCP in 1 week with repeat BMP to check creatinine. Ibuprofen NSAID was discontinued. #2 intractable nausea and vomiting: Likely due to gastritis secondary to alcohol abuse. Gastric occult blood was positive. Patient denied any hematemesis or hematochezia, no melena. Prescription for PPI was given. #3 lactic acidosis/leukocytosis: This is likely reactive secondary to persistent nausea and vomiting. Patient has been afebrile. COVID-19 PCR was negative. UA is negative for pyuria. Patient denies burning micturition, increased frequency and urgency. Chest x-ray reported normal. Repeat lactic acid improved to 2.7. Urine culture shows mixed gram-positive organism suggestive of contamination. Blood culture negative for more than 24 hours #4 type 1 diabetes mellitus: Sugars still elevated 287, 250 and 358. Titrate up the insulin. Continue ADA diet, Accu-Cheks, insulin sliding scale, continue insulin aspart 3 times daily and Tresiba Patient has been noncompliant to insulin regimen. Tresiba dose increased to 25 units daily. Patient wants to keep insulin aspart dose 6 unit subcutaneous 3 times daily as he tells me that when Tresiba is increased he gets into hypoglycemia. Follow-up with recreational resort manager Dr. Dawood Del Toro. #5 Chronic alcohol use, chronic hepatitis C and alcoholic cirrhosis: Patient completed treatment for hepatitis C about 6 months ago. Clinically no ascites palpable. He has outpatient blood work pending for 6-month HCV PCR test. Drinks 1 bottle of vodka every day. Last drink 3 days ago. blood alcohol level is 46. Currently, no evidence of alcohol withdrawal. Advise quitting alcohol. 6. History of pancreatitis: Lipase was normal. ALT and AST are trending down. Total bili normal. Alkaline phosphatase 50. #8 tobacco abuse: NicoDerm patch if desired. #9 DVT prophylaxis: Low risk patient, no prophylaxis indicated. Discharge medication reconciliation done. Discharge follow-up instructions completed. Discharge process discussed with the patient and all questions were answered to patient's satisfaction. Total time spent, exact 35 minutes on discharge meds reconciliation, examination, coordination of care with nurses and ancillary staff, review of imaging and blood test and discussion with the patient on follow-up instructions Objective: Vital signs are good. No fever. Patient had good urine output, clear. Patient was given IV fluid normal saline. No alcohol withdrawal related symptoms. Physical exam General: Alert, Oriented x3, Cooperative HEENT: Atraumatic, PERRLA, EOMI, Normocephalic Oral: No Gingival or Mucosal Lesions/ Ulcerations Neck: Supple, No JVD, Negative Carotid Bruits Lungs: Air entry diminished in bilateral lung bases. No crepitation/rhonchi Cardiovascular: Regular rate, Regular Rhythm, Normal S1, Normal S2, No murmurs Abdomen: Bowel Sounds Present, Soft, Non Tender, Non-Distended. No clinically palpable ascites : No renal angle tenderness. No suprapubic tenderness. Extremities: No edema, Capillary Refill Less than 3 Seconds Skin: No rashes, No breakdown Musculoskeletal: No Tenderness to Palpation of Joints or Extremities. No tremors in hand. Neurological: Cranial nerves II-XII grossly intact, Deep Tendon Reflexes 2+/4 and Symmetrical, Neuro grossly intact Psych/Mental Status: Normal Affect, Appropriate. - Physical Exam Vitals/I&O's: Vital Signs Temp Pulse Resp BP Pulse Ox 98.3 F 81 18 141/95 H 99 05/21/20 07:57 05/21/20 07:57 05/21/20 07:57 05/21/20 07:57 05/21/20 07:57 Oxygen Delivery Method Room Air Weight: 194 lb 7.163 oz Body Mass Index (BMI) 27.1 Finger Stick Blood Glucose 264 Intake and Output for Last 24 Hours 05/19/20 05/20/20 05/21/20 23:59 23:59 23:59 Intake Total 2009 4019.58 / 4819.58 2867.92 / 2867.92 Balance 2009 4019.58 / 4819.58 2867.92 / 2867.92 Microbiology Past 72 Hours 05/20/20 03:00 Urine, Clean Catch Urine Culture - Final Mixed Gram Positive Organisms 05/19/20 19:40 Gastric Fluid/Contents Gastric Occult Blood - Final Laboratory Results 05/20/20 15:30: POC Glucose 315 H 05/20/20 16:29: POC Glucose 336 H 05/20/20 22:01: POC Glucose 177 H 05/21/20 08:00: POC Glucose 223 H 05/21/20 09:36: WBC 8.2, RBC 3.65 L, Hgb 11.5 L, Hct 34.8 L, MCV 95.3 H, MCH 31.5, MCHC 33.0, RDW Std Deviation 55.2 H, RDW Coeff of Andreas 15.6 H, Plt Count 194, MPV 10.5, Immature Gran % (Auto) 0.500, Neut % (Auto) 73.3 H, Lymph % (Auto) 18.6 L, Gilchrist % (Auto) 6.6, Eos % (Auto) 0.5, Baso % (Auto) 0.5, Absolute Neuts (auto) 6.0, Absolute Lymphs (auto) 1.52, Nucleated RBC % 0 05/21/20 09:36: Sodium 133 L, Potassium 4.2, Chloride 101, Carbon Dioxide 21.0, Anion Gap 11, BUN 44 H, Creatinine 1.92 H, Estim Creat Clear Calc 52.84, Est GFR (MDRD) Af Amer 49 L, Est GFR (MDRD) Non-Af 41 L, BUN/Creatinine Ratio 22.9 H, Glucose 309 H, Calcium 7.4 L, Phosphorus 1.2 L, Magnesium 1.7 05/21/20 11:13: POC Glucose 277 H Current Medications Acetaminophen (Acetaminophen 325 Mg Tablet) 650 mg PO Q6H PRN PRN PRN Reason: Pain Score 1-10/Temp > 100.7 F Albuterol Sulfate (Albuterol 2.5 Mg/3 Ml Vial.Neb.) 2.5 mg INHALATION Q4H PRN PRN PRN Reason: Shortness of breath, wheezing Cholecalciferol (Cholecalciferol (Vit D3) 1,000 Unit (25mcg)) 1,000 unit PO DAILYCM [facility] Last Admin: 05/21/20 08:07 Dose: 1,000 unit Documented by: Gabapentin (Gabapentin 300 Mg Capsule) 300 mg PO TIDCM [facility] Last Admin: 05/21/20 11:16 Dose: 300 mg Documented by: Hydralazine HCl (Hydralazine 20 Mg/Ml Vial) 10 mg IV Q6H PRN PRN PRN Reason: BLOOD PRESSURE ELEVATION Last Admin: 05/20/20 06:08 Dose: 10 mg Documented by: Sodium Chloride () 1,000 mls @ 125 mls/hr IV .Q8H [facility] Last Admin: 05/21/20 11:10 Dose: 125 mls/hr Documented by: Pantoprazole Sodium 40 mg/ (Sodium Chloride) 110 mls @ 330 mls/hr IV Q12 [facility] Last Infusion: 05/21/20 09:56 Dose: Infused Documented by: Sodium Chloride () 250 mls @ 15 mls/hr IV .[id number] PRN PRN Reason: Saline Flush Sodium Chloride () 250 mls @ 15 mls/hr IV .[id number] PRN PRN Reason: Additional IVPB Infusion Insulin Glargine (Insulin Glargine 100 Units/Ml Pen) 25 units SC 1100 [facility] Last Admin: 05/21/20 11:16 Dose: 25 u Documented by: Insulin Human Lispro (Insulin Lispro 100 Unit/Ml Insuln.Pen) 0 unit SC ACHS [facility]; Protocol Last Admin: 05/21/20 11:15 Dose: 6 units Documented by: Insulin Human Lispro (Insulin Lispro 100 Unit/Ml Insuln.Pen) 12 unit SC 0800,1200,1700 [facility] Last Admin: 05/21/20 11:14 Dose: 12 u Documented by: Nutritional Formula (Lactose Free) (Glucerna Shake 120 Ml Liquid) 120 ml PO TIDCM [facility] Last Admin: 05/21/20 11:20 Dose: 120 ml Documented by: Ondansetron HCl (Ondansetron 4 Mg/2 Ml Vial) 4 mg IV Q8H PRN PRN PRN Reason: NAUSEA/VOMITING Last Admin: 05/20/20 06:08 Dose: 4 mg Documented by: Promethazine HCl (Promethazine 25 Mg/Ml Syringe) 6.25 mg IV Q6H PRN PRN PRN Reason: NAUSEA/VOMITING Senna/Docusate Sodium (Senna/Docusate Sodium 1 Tablet) 2 tablet PO BID PRN PRN PRN Reason: Constipation Sodium Chloride (0.9% Saline Lock 10 Ml Syringe) 10 - 40 ml IV UD PRN PRN Reason: SALINE FLUSH Last Admin: 05/20/20 22:08 Dose: 10 ml Documented by: Discharge Activity: May Not Drive Call your doctor if you observe: Fever of 101 or Higher, Coldness, Increased Pain, Numbness or Tingling, Inability to urinate, Shortness of breath, Dizziness, Fainting spells, Swelling in the ankles, Chest pain, Prolonged hiccoughing, Increased palpitations (irregular heartbeat), Uncontrolled pain Home Medications: Medications to take at Discharge Albuterol IH (ProAir) [Proair Hfa] 2 puff INHALATION Q4H PRN 01/20/18 Cholecalciferol (VIT D3) [Vitamin D3] 1,000 unit PO DAILY 01/20/18 Gabapentin [Neurontin] 300 mg PO TID 09/25/18 blood sugar diagnostic See Rx Instructions .ROUTE .MEDSUPPLY #100 ea 09/17/19 pen needle, diabetic 32 gauge x See Rx Instructions .ROUTE .MEDSUPPLY #100 ea 09/17/19 blood-glucose meter See Rx Instructions .ROUTE .MEDSUPPLY #1 ea 04/25/20 Folic Acid 1 mg PO DAILY #30 tab 05/21/20 Insulin Aspart [Insulin Aspart Flexpen] 6 unit SC TIDCM #0 05/21/20 Insulin Degludec [Tresiba Flextouch U-100] 25 unit SC DAILY #0 05/21/20 Pantoprazole Sodium [Protonix] 40 mg PO DAILY #30 tab 05/21/20 Thiamine HCl 100 mg PO DAILY #30 tab 05/21/20 Following Prescriptions Were Given to Patient: Folic Acid 1 mg PO DAILY #30 tab Transmission Status: Pending to [id number] Pantoprazole Sodium [Protonix] 40 mg PO DAILY #30 tab Transmission Status: Pending to [facility] Thiamine HCl 100 mg PO DAILY #30 tab Transmission Status: Pending to [facility] Primary Care Physician: Winsome Apple PROJECT DEVELOPMENT DIRECTOR, PROJECT DEVELOPMENT DIRECTOR-C [Primary Care Provider] - Please follow up with your Primary Care Physician in: in 1 with BMP lab Please Follow Up With: Armin Del Toro MD When: DM-2, glucose control Medical Necessity - Tobacco Use Smoking Status: Current every day smoker Tobacco Use: Cigarettes Meaningful Use Info Meaningful Use Diagnoses (Choose all that apply): None applicable Inpatient E&M: [id number] [facility]
[2020-05-21 12:29] VITALS: BP 126/78; PULSE 93; RESP 18; TEMP 36.8; O2SAT 96
--- NOTE | 2020-05-23 16:00 | CASEMGMT ---
BRENNON LYLE Discharge Follow-up Phone Call: JERE: Alcon Strata: 3 Call Date: 05/23/20 Discharge Date: 05/21/20 Time of Call: 1600 Duration: 2 min Admitting Diagnosis: ОЛЕГ, Mild hyperkalemia BRENNON LYLE completed follow-up phone call after recent hospitalization. Patient's mother answered as it is her number listed. She states patient is doing well. No questions or concerns with discharge instructions. Mother is currently at [facility] and will worm picker prescriptions. Mother had no further questions or concerns at this time.
== END 2020-05-21 13:26 | disposition home or self-care (01) | DRG 469 ==
LOC: ED 18:33 → MS3 20:43
PROVIDERS: Admitting Provider Hospitalist; Emergency Provider Emergency Medicine; PCP Nurse Practitioner Family; Visit Provider Internal Medicine
DX: N17.9 Acute kidney failure, unspecified (principal); E86.0 Dehydration; E10.22 Type 1 diabetes mellitus with diabetic chronic kidney disease; N18.30 Chronic kidney disease, stage 3 unspecified; E10.21 Type 1 diabetes mellitus with diabetic nephropathy; E87.5 Hyperkalemia; K70.30 Alcoholic cirrhosis of liver without ascites; K29.20 Alcoholic gastritis without bleeding; K86.1 Other chronic pancreatitis; B18.2 Chronic viral hepatitis C; D72.829 Elevated white blood cell count, unspecified; R19.5 Other fecal abnormalities; Y90.2 Blood alcohol level of 40-59 mg/100 ml; F10.10 Alcohol abuse, uncomplicated; F17.210 Nicotine dependence, cigarettes, uncomplicated; Z23 Encounter for immunization; Z79.4 Long term (current) use of insulin; Z91.19 Patient's noncompliance with other medical treatment and regimen
CPT/HCPCS: 36415; 71045; 80048; 80053; 80307; 80320; 81001; 82271; 82962; 83605; 83690; 83735; 84100; 84484; 85025; 87040; 87086; 87088; 87635; 93005; 94640; 99251; 99284; 99406; J7030; 90686; A4216; G0463; G0480; J2405; J3490; U0002

== ENCOUNTER → 2020-06-07 10:24 | Outpatient (CLI) | payer MEDICAID, SELFPAY ==
[2020-05-19 23:32] VITALS: BMI 27.1
[2020-06-07 10:45] LABS: Absolute Lymphocyte Count 2.86 X10^3/uL (0.83-4.51); Absolute Neutrophil Count 5.2 X10^3/uL (2.0-7.7); Basophil# 0.21 X10^3/uL; Basophil% 2.2 % (0-1); Eosinophil# 0.46 X10^3/uL; Eosinophils% 4.9 % (0-5); Hematocrit 36.5 % (40-54); Hemoglobin 11.8 g/dL (13.0-16.5); Lymphocyte # 2.86 X10^3/ul (4.0); Lymphocyte % 30.5 % (19-41); Mean Corp Hgb Conc 32.3 g/dL (32-36); Mean Corpuscular Hgb 30.9 pg (27.0-32.0); Mean Corpuscular Volume 95.5 fL (80-94); Mean Platelet Vol. 9.8 fl (6.2-12.0); Monocyte# 0.66 X10^3/uL; NRBC Flagged by Analyzer 0 % (0-5); Neutrophil # 5.15 X10^3/uL (2.7-7.7); Platelet Count 441 K/mm3 (150-450); RBC Distribution Width CV 14.6 % (11.6-14.6); RBC Distribution Width SD 50.7 fl (35.1-43.9); Red Blood Count 3.82 M/mm3 (4.6-6.2); White Blood Count 9.4 K/mm3 (4.4-11.0)
[2020-06-07 11:08] LABS: Hemoglobin A1c 8.5 % (3.8-5.6)
[2020-06-07 11:19] LABS: ALB/GLOB Ratio 0.7 RATIO (0.9-2.4); AST(SGOT) 13 U/L (15-37); Alanine Aminotransfer ALT/SGPT 21 U/L (16-61); Albumin, Serum 2.9 g/dL (3.2-5.0); Alkaline Phosphatase 45 U/L (45-117); Anion Gap 0 (5-15); BUN 21 mg/dL (7-18); BUN/Creat Ratio 12.8 RATIO (10-20); Chloride 105 mmol/L (98-107); Cholesterol 284 mg/dL (200); Creatinine, Serum 1.64 mg/dL (0.70-1.30); EST Glomerular Filtration Rate 49 mL/min (>60); Est Glom Filt Rate - Afr Amer 59 mL/min (>60); Glucose 83 mg/dL (74-106); High Density Lipoprotein 68 mg/dL; Potassium 4.4 mmol/L (3.5-5.1); Protein, Total 6.9 g/dL (6.4-8.2); Sodium Level 139 mmol/L (136-145); Triglycerides 228 mg/dL; Very Low Density Lipoprotein 46 mg/dL (5-40)
[2020-06-10 04:12] LABS: HCV Quant. RNA PCR HCV Not Detected IU/mL (.)
== END ==
DX: E11.40 Type 2 diabetes mellitus with diabetic neuropathy, unspecified (principal); E78.2 Mixed hyperlipidemia; E55.9 Vitamin D deficiency, unspecified; B18.2 Chronic viral hepatitis C
CPT/HCPCS: 36415; 80053; 80061; 82306; 83036; 85025; 87522

== ENCOUNTER 2020-06-16 13:10 | Inpatient (IN) | payer MEDICAID, SELFPAY ==
[2020-06-16] VITALS (9 sets, daily range): BP systolic 135–186; BP diastolic 77–103; PULSE 86–104; RESP 16–21; TEMP 36.4–37.4; O2SAT 99–100; BMI 26.9; BMI 27.1
--- NOTE | 2020-06-16 13:41 | ED.DCSUM_ITS ---
- ER Visit Summary Date of Service: 06/16/20 Chief Complaint: [Nausea and vomiting] History of Present Illness: The patient is a 44 M [presents to the emergency department complaint of vomiting for the last 2-1/2 days. Patient states that he cannot keep any food or water down. Patient drank heavily 5 days ago and was drinking vodka. He denies any abdominal pain. This morning he developed swelling of his lower lip after retching which he has had happen before. Patient is a diabetic and his blood sugar was 200 this morning. He denies any abdominal pain. He denies chest pain. He denies having hematemesis or blood in his stool. Patient's not had any prior surgeries. Patient has history of diab etes, cirrhosis, pancreatitis, and alcohol abuse.] Physical Examination: [HEENT-PERRLA, EOMI. Cranial nerves II through XII grossly intact. TMs clear. Mucous membranes dry. No adenopathy. Mild angioedema of the lower lip. There is no angioedema of the oropharynx or tongue. Cardiovascular-regular and tachycardic without murmur or ectopy Lungs-clear to auscultation, chest wall stable without crepitus or subcu emphysema Abdomen-normoactive bowel sounds, soft, nontender, no rebound or rigidity, no peritoneal signs. Extremities-intact ?4, normal range of motion, normal pulses, atraumatic] Test Results: [CBC with differential obtained showed a white count of 18.3, hemoglobin 13, hematocrit 39, placed 349. Sodium was 133, potassium 5.4, chlor maria c 91, CO2 15, glucose 269, BUN 65, creatinine 2.22. LFTs and lipase were normal. Alcohol was negative. Lactate was elevated at over 9.] Emergency Department Course and Treatment: [IV line established on arrival. Patient was given a liter mostly fluid bolus. Patient given Zofran 4 mg IV. A second liter of normal saline ordered.] I do not feel patient is in DKA and likely his electrolyte derangement represents alcoholic ketosis. Treatment Plan: [Admit] Disposition: [Admit] Impression: [Acute kidney injury Dehydration Lactic acidosis Alcoholic ketosis History of alcohol abuse] This note was generated with SlideBatchation software. It may contain incorrect words, spelling, and punctuation that were not noted in review of the chart prior to signing ED Disposition - Plan for ED Patient: Referrals: Care Physician,No Primary [NON-STAFF] -
[2020-06-16] MEDS: Ondansetron 4 MG/2 ML Vial IV ×2 (14:09→17:32)
[2020-06-16] MEDS: 0.9% Normal Saline 1,000 ML 1000 ML IV (14:09)
[2020-06-16 14:39] LABS: Absolute Lymphocyte Count 0.93 X10^3/uL (0.83-4.51); Absolute Neutrophil Count 16.6 X10^3/uL (2.0-7.7); Basophil# 0.13 X10^3/uL; Basophil% 0.7 % (0-1); Eosinophil# 0.01 X10^3/uL; Eosinophils% 0.1 % (0-5); Hemoglobin 12.9 g/dL (13.0-16.5); Lymphocyte # 0.93 X10^3/ul (4.0); Lymphocyte % 5.1 % (19-41); Mean Corp Hgb Conc 33.1 g/dL (32-36); Mean Corpuscular Hgb 30.8 pg (27.0-32.0); Mean Corpuscular Volume 93.1 fL (80-94); Mean Platelet Vol. 10.2 fl (6.2-12.0); Monocyte% 3.3 % (0-10); NRBC Flagged by Analyzer 0 % (0-5); Neutrophil # 16.55 X10^3/uL (2.7-7.7); Neutrophil % 90.3 % (47-70); Platelet Count 349 K/mm3 (150-450); RBC Distribution Width CV 14.2 % (11.6-14.6); RBC Distribution Width SD 49.2 fl (35.1-43.9); Red Blood Count 4.19 M/mm3 (4.6-6.2); White Blood Count 18.3 K/mm3 (4.4-11.0)
[2020-06-16 14:59] LABS: ALB/GLOB Ratio 0.9 RATIO (0.9-2.4); AST(SGOT) 43 U/L (15-37); Alanine Aminotransfer ALT/SGPT 31 U/L (16-61); Albumin, Serum 3.3 g/dL (3.2-5.0); Alkaline Phosphatase 46 U/L (45-117); Anion Gap 27 (5-15); BUN 65 mg/dL (7-18); BUN/Creat Ratio 29.3 RATIO (10-20); Calcium,Total 8.1 mg/dL (8.5-10.1); Chloride 91 mmol/L (98-107); Creatinine, Serum 2.22 mg/dL (0.70-1.30); EST Glomerular Filtration Rate 34 mL/min (>60); Est Glom Filt Rate - Afr Amer 42 mL/min (>60); Globulin 3.8 g/dL (2.2-4.2); Glucose 269 mg/dL (74-106); Lipase 50 U/L (73-393); Potassium 5.4 mmol/L (3.5-5.1); Protein, Total 7.1 g/dL (6.4-8.2); Sodium Level 133 mmol/L (136-145)
[2020-06-16 15:03] LABS: Lactic Acid 9.2 mmol/L (0.4-1.9)
--- NOTE | 2020-06-16 15:07 | HP.PCM_ITS ---
History of Present Illness Date of Admission: 06/16/20 Chief Complaint: nausea, vomiting, swelling of lower lip The patient is a 44 year old M with an extensive past medical history which includes chronic alcohol abuse, liver cirrhosis, recurrent pancreatitis and type 1 diabetes mellitus. Patient was admitted through the ED on 06/16/2020 with complaint of intractable nausea and vomiting for 2 days prior to admission. Patient states this usually happens after he binge drinks. He also said after extensive vomiting, he had swelling of his lower lip which has occurred in the past as well. He denied any abdominal pain and denied any fever or chills, burning with urination, cough, shortness of breath, any hematemesis or blood in his stool. Review of stems otherwise negative. Admission in the ED, vitals were temperature of 97.5 Fahrenheit with blood pressure of 147/94, pulse rate of 104 and respiratory of 18. He was saturating at 100% on room air. Chemistry showed sodium of 133 with potassium of 5.4 and bicarb of 15. Anion gap was 27. Creatinine was 2.2 but blood sugar was 269. Lactic acid was 9.2 liver enzymes are within normal limits. Lipase was only 50. CBC showed WBC of 18.3 with hemoglobin of 12.9 and platelets of 349. He has been admitted to be managed for intractable nausea and vomiting, ОЛЕГ on CKD as well as hyperkalemia, lactic acidosis and anion gap metabolic acidosis likely due to lactic acidosis. Serum acetone was also checked and patient had small ketones and in light of his elevated anion gap with low bicarbonate, will also manage patient for DKA. [] Past Medical History Past Medical History (Chronic Problems): Chronic Problems (Last Reviewed 03/10/20 @ 09:[address] Armin Del Toro MD) Type 1 diabetes mellitus (Chronic) Liver cirrhosis (Chronic) History of tobacco abuse (Chronic) Pseudocyst Pancreatic Tail (Chronic) History of pancreatitis (Chronic) History of alcohol use (Chronic) Medical History: Medical History (Last Reviewed 03/10/20 @ 09:[address] Armin Del Toro MD) Asthma J45.909 Hernia K46.9 Neuropathy G62.9 Type 1 diabetes mellitus E10.9 Vitamin D deficiency E55.9 Allergies sulfamethoxazole [From Bactrim] Allergy (Verified 05/19/20 17:19) Hives trimethoprim [From Bactrim] Allergy (Verified 05/19/20 17:19) Hives Home Medications: Ambulatory Orders Medication Instructions Recorded Albuterol IH (ProAir) [Proair Hfa] 2 puff INHALATION Q4H PRN 01/20/18 Cholecalciferol (VIT D3) [Vitamin 1,000 unit PO DAILY 01/20/18 D3] Gabapentin [Neurontin] 300 mg PO TID 09/25/18 Folic Acid 1 mg PO DAILY #30 tab 05/21/20 Pantoprazole Sodium [Protonix] 40 mg PO DAILY #30 tab 05/21/20 Thiamine HCl 100 mg PO DAILY #30 tab 05/21/20 Atorvastatin Calcium 40 mg PO DAILY 06/16/20 Insulin Aspart [Insulin Aspart 10 unit SC TIDCM 06/16/20 Flexpen] Insulin Degludec [Tresiba 28 unit SC DAILY 06/16/20 Flextouch U-100] Tamsulosin HCl [Flomax] 0.4 mg PO DAILY 06/16/20 Surgical History: Surgical History (Last Reviewed 05/19/20 @ 20:[address] Kenyetta Pedraza MD) History of tooth extraction K08.409 Surgical History: herniorrhaphy, - - Hernia repair. Psychiatric History: No pertinent psych hx Lives: With Family Smoking Status: Current every day smoker Tobacco Use: Cigarettes Alcohol: Heavy Drugs: None - *Family History Maternal Family History: Family History (Last Reviewed 05/19/20 @ 20:[address] Kenyetta Pedraza MD) Other Diabetes Heart disease Hypertension History Items: Heart Disease Paternal Family History: Family History (Last Reviewed 05/19/20 @ 20:[address] Kenyetta Pedraza MD) Other Diabetes Heart disease Hypertension History Items: Diabetes Review of Systems Constitutional: Reports: Malaise, Weakness. Denies: Chills, Fever, Weight Change Eyes: Denies: Blurred vision HEENT: Denies: Head Aches, Sinus Congestion, Sinus Drainage Cardiovascular: Denies: Chest Pain, Palpitations Respiratory: Denies: Cough, Shortness of Breath, Shortness of breath at rest, Shortness of breath upon exertion, Sputum production Gastrointestinal: Reports: Nausea, Vomiting. Denies: Abdominal Pain, Diarrhea, Dyspepsia Genitourinary: Denies: Dysuria Musculoskeletal: Denies: Joint Pain, Joint Tenderness Skin: Denies: Rash, Wounds Neurological: Denies: Numbness, Tingling, Focal weakness Psychiatric: Denies: Anxiety, Depression, Homicidal Ideations, Suicidal Ideations Hematologic/ Lymphatic: Denies: Easy Bruising, Easy Bleeding VTE Information - Inpt Only VTE Present on Admission: No VTE Pharm Prophylaxis ordered?: Yes - Physical Exam Vitals/I&O's: Vital Signs Temp Pulse Resp BP Pulse Ox 97.5 F L 104 H 18 147/97 H 100 06/16/20 13:11 06/16/20 13:11 06/16/20 13:11 06/16/20 13:11 06/16/20 13:11 Oxygen Delivery Method Room Air Weight: 193 lb 1.999 oz Body Mass Index (BMI) 26.9 Finger Stick Blood Glucose 264 General: Alert, Oriented x3, Cooperative, No apparent distress HEENT: Atraumatic, PERRLA, EOMI, Normocephalic Oral: Dry Mucosa, - - mild swelling of lower lip Neck: Supple, No JVD, Negative Carotid Bruits Lungs: Clear to auscultation, Normal air movement, No rhonchi, No wheeze Cardiovascular: Regular rate, Regular Rhythm, Normal S1, Normal S2, No murmurs Abdomen: Bowel Sounds Present, Soft, Non Tender Extremities: No edema, Capillary Refill Less than 3 Seconds Skin: No rashes, No breakdown Musculoskeletal: No Tenderness to Palpation of Joints or Extremities Lymphatic: No Cervical, Supraclavicular, or Inguinal Adenopathy Neurological: Cranial nerves II-XII grossly intact, Neuro grossly intact, Motor Exam 5/5 strength throughout Psych/Mental Status: Normal Affect, Appropriate, Alert and oriented to time, place, person, mood and affect Laboratory Results 06/16/20 14:14: WBC 18.3 H, RBC 4.19 L, Hgb 12.9 L, Hct 39.0 L, MCV 93.1, MCH 30.8, MCHC 33.1, RDW Std Deviation 49.2 H, RDW Coeff of Andreas 14.2, Plt Count 349, MPV 10.2, Immature Gran % (Auto) 0.500, Neut % (Auto) 90.3 H, Lymph % (Auto) 5.1 L, Yates % (Auto) 3.3, Eos % (Auto) 0.1, Baso % (Auto) 0.7, Absolute Neuts (auto) 16.6 H, Absolute Lymphs (auto) 0.93, Nucleated RBC % 0 06/16/20 14:14: Sodium 133 L, Potassium 5.4 H, Chloride 91 L, Carbon Dioxide 15.0 L, Anion Gap 27 H, BUN 65 H, Creatinine 2.22 H, Estim Creat Clear Calc 45.70, Est GFR (MDRD) Af Amer 42 L, Est GFR (MDRD) Non-Af 34 L, BUN/Creatinine Ratio 29.3 H, Glucose 269 H, Calcium 8.1 L, Total Bilirubin 0.90, AST 43 H, ALT 31, Alkaline Phosphatase 46, Total Protein 7.1, Albumin 3.3, Globulin 3.8, Albumin/Globulin Ratio 0.9, Lipase 50 L 06/16/20 14:14: Ethyl Alcohol 8.0 06/16/20 14:14: Lactic Acid 9.2 H* Assessment/Plan 44-year-old male admitted with a complaint of intractable nausea and vomiting. #DKA * Admit to ICU * start on insulin drip per DKA protocol. * hydrate with IVF per DKA protocol * switch to D5 1/2NS wehn blood sugar is below 250 * check BMP q4hrly * check A1C * consult critical care * Though anion gap could also be explained by lactic acidosis, I think it is reasonable to manage him for DKA as he has a history of poorly controlled diabetes * switch to sq long acting insulin once anion gap closes * keep NPO * #Intractable nausea and vomiting likely due to gastroparesis * Has a history of poorly controlled type 1 diabetes mellitus and his last A1c was 11.8 in August 2019. Patient also drinks heavily and this will likely contribute to peripheral neuropathy which can worsen gastroparesis. States vomiting always occurs after he goes binge drinking * Labs showed anion gap metabolic acidosis with anion gap of 27 and bicarb of 15 and lactic acidosis 9.2. * Admit to PCU. Hydrate aggressively with IV fluids. Trend lactic acid. Trend bicarb. Get ABG. * Give IV Zofran for nausea. * Keep n.p.o. for now. * #Anion gap metabolic acidosis likely due to lactic acidosis. * Bicarb is 15 with anion gap of 27. BUN is also 65 and creatinine is elevated at 2.2 with a baseline from 1.6-1.7. Lactic acid is also up at 9.2. * Trend BMP to monitor for anion gap and hydrate aggressively with IV fluids. * * # lactic acidosis: Lactic acid is 9.2 which is likely due to dehydration. Hydrate with IV fluids and trend. #Hyperkalemia: Potassium was 5.4 which is likely due to ОЛЕГ on CKD. Will give sodium Kayexalate and monitor. #SIRS criteria: * WBC is 18.3 and his rate is 104. * However there is no clear evidence of infection and this could be likely reactive and also due to DKA. * will check urinalysis; if wbc remains elevated, will consider starting antibiotics if there are signs of infection #History of chronic alcohol abuse: Put on alcohol withdrawal protocol with Ativan. On thiamine, folic acid and multivitamin. monitor CIWS score #type 1 diabetes mellitus: management as per DKA above DVT prophylaxis: Lovenox CODE STATUS:full code * Patient counseled extensively about different types of CODE STATUS including full code, DNR CCA and DNR CCA. Patient elects to be full code. * Total [id number] time 17 minutes. Inpatient E&M: 08093 Init Hosp L3 Procedures: 57904 Advncd Care Plan 30 Min
[2020-06-16] MEDS: 0.9% Normal Saline 1,000 ML 999 ML IV (15:39)
[2020-06-16] MEDS: 0.9% Saline Lock 10 ML Syringe IV (17:32)
[2020-06-16 18:31] LABS: Reflex Lactate? Y
[2020-06-16] MEDS: 0.9% Normal Saline 1,000 ML 500 ML IV (18:47)
[2020-06-16] MEDS: LORazepam 1 MG Tablet 0.5 MG PO ×2 (18:55→23:01)
[2020-06-16] MEDS: Albuterol 2.5 MG/3 ML VIAL.NEB. INHALATION (19:10)
[2020-06-16 19:16] LABS: Bedside Glucose 437 mg/dL (70-110)
[2020-06-16 20:00] LABS: Anion Gap 26 (5-15); BUN 63 mg/dL (7-18); Calcium,Total 7.2 mg/dL (8.5-10.1); Chloride 96 mmol/L (98-107); Creatinine, Serum 2.03 mg/dL (0.70-1.30); EST Glomerular Filtration Rate 38 mL/min (>60); Est Glom Filt Rate - Afr Amer 46 mL/min (>60); Estimated Creatinine Clearance 49.97 ml/min; Glucose 406 mg/dL (74-106); Potassium 5.4 mmol/L (3.5-5.1); Sodium Level 135 mmol/L (136-145)
[2020-06-16 20:06] LABS: Bedside Glucose 436 mg/dL (70-110)
[2020-06-16 20:32] LABS: Lactic Acid 3.6 mmol/L (0.4-1.9)
[2020-06-16] MEDS: 0.9% Normal Saline 1,000 ML 250 ML IV (20:53)
[2020-06-16 20:55] LABS: Osmolality, Serum 339 mOsm/KG (275-295)
[2020-06-16 22:00] LABS: Magnesium 1.9 mg/dL (1.6-2.6)
[2020-06-16] MEDS: Acetaminophen 325 MG Tablet 650 MG PO (22:07)
[2020-06-16] MEDS: traZODone 100 MG Tablet PO (22:08)
[2020-06-16 22:55] LABS: Bedside Glucose 367 mg/dL (70-110)
[2020-06-16 22:55] LABS: Bedside Glucose 390 mg/dL (70-110)
[2020-06-16 23:30] LABS: Anion Gap 18 (5-15); BUN 64 mg/dL (7-18); BUN/Creat Ratio 28.6 RATIO (10-20); Calcium,Total 6.9 mg/dL (8.5-10.1); Chloride 101 mmol/L (98-107); Creatinine, Serum 2.24 mg/dL (0.70-1.30); EST Glomerular Filtration Rate 34 mL/min (>60); Est Glom Filt Rate - Afr Amer 41 mL/min (>60); Estimated Creatinine Clearance 45.29 ml/min; Glucose 386 mg/dL (74-106); Magnesium 1.8 mg/dL (1.6-2.6); Potassium 4.9 mmol/L (3.5-5.1); Sodium Level 139 mmol/L (136-145)
[2020-06-17] VITALS (21 sets, daily range): BP systolic 103–152; BP diastolic 64–93; PULSE 69–98; RESP 12–23; TEMP 36.3–37.6; O2SAT 98–100
[2020-06-17 00:02] LABS: Phosphorus 1.3 mg/dL (2.5-4.9)
[2020-06-17 00:51] LABS: Bedside Glucose 359 mg/dL (70-110)
[2020-06-17 00:51] LABS: Bedside Glucose 363 mg/dL (70-110)
[2020-06-17] MEDS: 0.9% Normal Saline 1,000 ML 250 ML IV (00:55)
[2020-06-17 01:00] LABS: Lactic Acid 1.9 mmol/L (0.4-1.9)
[2020-06-17 02:36] LABS: Bedside Glucose 306 mg/dL (70-110)
[2020-06-17 02:36] LABS: Bedside Glucose 264 mg/dL (70-110)
[2020-06-17 02:45] LABS: Absolute Neutrophil Count 10.3 X10^3/uL (2.0-7.7); Basophil# 0.05 X10^3/uL; Basophil% 0.4 % (0-1); Eosinophil# 0.01 X10^3/uL; Eosinophils% 0.1 % (0-5); Hematocrit 30.2 % (40-54); Hemoglobin 10.4 g/dL (13.0-16.5); Lymphocyte % 12.8 % (19-41); Mean Corp Hgb Conc 34.4 g/dL (32-36); Mean Corpuscular Hgb 31.6 pg (27.0-32.0); Mean Corpuscular Volume 91.8 fL (80-94); Mean Platelet Vol. 9.9 fl (6.2-12.0); Monocyte# 1.23 X10^3/uL; Monocyte% 9.2 % (0-10); NRBC Flagged by Analyzer 0 % (0-5); Neutrophil # 10.28 X10^3/uL (2.7-7.7); Platelet Count 238 K/mm3 (150-450); RBC Distribution Width SD 47.9 fl (35.1-43.9); Red Blood Count 3.29 M/mm3 (4.6-6.2); White Blood Count 13.3 K/mm3 (4.4-11.0)
[2020-06-17 02:57] LABS: Anion Gap 9 (5-15); BUN 64 mg/dL (7-18); BUN/Creat Ratio 27.6 RATIO (10-20); Calcium,Total 6.9 mg/dL (8.5-10.1); Chloride 106 mmol/L (98-107); Creatinine, Serum 2.32 mg/dL (0.70-1.30); EST Glomerular Filtration Rate 33 mL/min (>60); Est Glom Filt Rate - Afr Amer 40 mL/min (>60); Estimated Creatinine Clearance 43.73 ml/min; Glucose 262 mg/dL (74-106); Potassium 4.1 mmol/L (3.5-5.1); Sodium Level 142 mmol/L (136-145)
[2020-06-17] MEDS: Dext 5%-0.45% NS 1,000 ML 150 ML IV (04:00)
[2020-06-17 04:50] LABS: Bedside Glucose 159 mg/dL (70-110)
[2020-06-17 04:50] LABS: Bedside Glucose 199 mg/dL (70-110)
[2020-06-17 06:07] LABS: Mucous, Urine 0 SEEN /hpf (<or=2+)
[2020-06-17 06:21] LABS: Color, Urine Yellow (Yellow); Glucose, Dipstick 1000 mg/dl (Normal); Leukocyte Esterase-Dipstick 25 /ul (Negative); Nitrite-Dipstick Negative (Negative); Occult Blood-Urine 25 /ul (Negative); Protein-Dipstick 500 mg/dl (Negative); Specific Gravity, Urine 1.015 (1.002-1.030); Urine Bilirubin Dipstick Negative (Negative); Urine Clarity Clear (Clear); Urine Urobilinogen Normal (Normal)
[2020-06-17 06:25] LABS: Ketone-Dipstick 150 mg/dl (Negative)
[2020-06-17 06:29] LABS: Bacteria RARE /hpf (None Seen); Red Blood Cells-Urine 0-5 SEEN /hpf (0-5); Squamous Epithelial Cells - UA 0-5 SEEN /hpf (0-5); White Blood Cells 0-5 SEEN /hpf (0-5)
[2020-06-17 06:32] LABS: Anion Gap 7 (5-15); BUN 63 mg/dL (7-18); BUN/Creat Ratio 29.7 RATIO (10-20); Calcium,Total 6.8 mg/dL (8.5-10.1); Chloride 109 mmol/L (98-107); Creatinine, Serum 2.12 mg/dL (0.70-1.30); EST Glomerular Filtration Rate 36 mL/min (>60); Est Glom Filt Rate - Afr Amer 44 mL/min (>60); Estimated Creatinine Clearance 47.85 ml/min; Glucose 104 mg/dL (74-106); Potassium 3.5 mmol/L (3.5-5.1); Sodium Level 143 mmol/L (136-145)
[2020-06-17] MEDS: Enoxaparin 40 MG/0.4 ML Syringe SC (06:56)
[2020-06-17 07:00] LABS: Amphetamine Urine VISTA NEGATIVE (<1000 ng/mL); Barbiturate Urine VISTA NEGATIVE (< 200 ng/mL); Benzodiazepine Urine VISTA NEGATIVE (< 200 ng/mL); Cocaine Urine VISTA NEGATIVE (< 300 ng/mL); Ecstacy Urine VISTA NEGATIVE (< 500 ng/mL); Methadone Urine VISTA NEGATIVE (< 300 ng/mL); PCP Urine VISTA NEGATIVE (< 25 ng/mL); THC Urine VISTA NEGATIVE (< 50 ng/mL); Vista UDS pH Range 5
[2020-06-17 07:06] LABS: Bedside Glucose 73 mg/dL (70-110)
[2020-06-17 07:06] LABS: Bedside Glucose 119 mg/dL (70-110)
--- NOTE | 2020-06-17 07:43 | NURSING ---
Blood sugar 61. [place] juice given. Insulin gtts protocol states no insulin rate change. called for further direction
[2020-06-17 08:30] LABS: Bedside Glucose 71 mg/dL (70-110)
[2020-06-17] MEDS: Multivitamins,Therapeutic Tablet 1 TABLET PO (08:35)
[2020-06-17] MEDS: Thiamine Hydrochloride 100 MG Tablet PO (08:35)
[2020-06-17] MEDS: Folic Acid 1 MG Tablet PO (08:35)
[2020-06-17] MEDS: 0.9% Saline Lock 10 ML Syringe IV (08:44)
[2020-06-17 10:41] LABS: Bedside Glucose 61 mg/dL (70-110)
[2020-06-17 11:25] LABS: Bedside Glucose 175 mg/dL (70-110)
[2020-06-17] MEDS: Insulin Lispro 100 UNIT/ML INSULN.PEN SC ×5 (11:25→21:24)
--- NOTE | 2020-06-17 13:01 | PN_ITS ---
Subjective: Doing well, feels better today. No issues overnight Vitals/I&O's: Vital Signs Temp Pulse Resp BP Pulse Ox 97.9 F 81 18 117/64 100 06/17/20 08:00 06/17/20 11:00 06/17/20 11:00 06/17/20 11:00 06/17/20 11:00 Oxygen Delivery Method Room Air Weight: 201 lb 8.04 oz Body Mass Index (BMI) 27.1 Finger Stick Blood Glucose 73 Intake and Output for Last 24 Hours 06/15/20 06/16/20 06/17/20 23:59 23:59 23:59 Intake Total 3069.8 / 3069.8 3601.18 / 3601.18 Output Total 525 / 525 100 / 100 Balance 2544.8 / 2544.8 3501.18 / 3501.18 General: Alert, Oriented x3, Cooperative, No apparent distress HEENT: Atraumatic, PERRLA, EOMI, Normocephalic Oral: Moist Mucosa Neck: Supple, No JVD Lungs: Clear to auscultation, Normal air movement, No rhonchi, No wheeze, No rales Cardiovascular: Regular rate, Regular Rhythm, Normal S1, Normal S2, No murmurs Abdomen: Soft, Non Tender, Non-Distended, No Hepato-splenomegaly Extremities: No edema, Capillary Refill Less than 3 Seconds Skin: No rashes, No breakdown Neurological: Neuro grossly intact, Sensory exam intact to light touch and pain Psych/Mental Status: Flat Affect Laboratory Results 06/16/20 14:14: WBC 18.3 H, RBC 4.19 L, Hgb 12.9 L, Hct 39.0 L, MCV 93.1, MCH 30.8, MCHC 33.1, RDW Std Deviation 49.2 H, RDW Coeff of Andreas 14.2, Plt Count 349, MPV 10.2, Immature Gran % (Auto) 0.500, Neut % (Auto) 90.3 H, Lymph % (Auto) 5.1 L, [place] % (Auto) 3.3, Eos % (Auto) 0.1, Baso % (Auto) 0.7, Absolute Neuts (auto) 16.6 H, Absolute Lymphs (auto) 0.93, Nucleated RBC % 0 06/16/20 14:14: Sodium 133 L, Potassium 5.4 H, Chloride 91 L, Carbon Dioxide 15.0 L, Anion Gap 27 H, BUN 65 H, Creatinine 2.22 H, Estim Creat Clear Calc 45.70, Est GFR (MDRD) Af Amer 42 L, Est GFR (MDRD) Non-Af 34 L, BUN/Creatinine Ratio 29.3 H, Glucose 269 H, Calcium 8.1 L, Total Bilirubin 0.90, AST 43 H, ALT 31, Alkaline Phosphatase 46, Total Protein 7.1, Albumin 3.3, Globulin 3.8, Albumin/Globulin Ratio 0.9, Lipase 50 L 06/16/20 14:14: Ethyl Alcohol 8.0 06/16/20 14:14: Lactic Acid 9.2 H* 06/16/20 14:14: Acetone Level SMALL H 06/16/20 18:42: POC Glucose 437 H 06/16/20 19:15: Serum Osmolality 339 H 06/16/20 19:15: Sodium 135 L, Potassium 5.4 H, Chloride 96 L, Carbon Dioxide 13.0 L, Anion Gap 26 H, BUN 63 H, Creatinine 2.03 H, Estim Creat Clear Calc 49.9 7, Est GFR (MDRD) Af Amer 46 L, Est GFR (MDRD) Non-Af 38 L, BUN/Creatinine Ratio 31.0 H, Glucose 406 H, Calcium 7.2 L 06/16/20 19:15: Troponin I < 0.015 06/16/20 19:15: Phosphorus 3.0, Magnesium 1.9 06/16/20 19:36: Lactic Acid 3.6 H* 06/16/20 19:51: POC Glucose 436 H 06/16/20 20:49: POC Glucose 367 H 06/16/20 21:48: POC Glucose 390 H 06/16/20 22:45: Lactic Acid 1.9 06/16/20 22:55: Sodium 139, Potassium 4.9, Chloride 101, Carbon Dioxide 20.0 L, Anion Gap 18 H, BUN 64 H, Creatinine 2.24 H, Estim Creat Clear Calc 45.29, Est GFR (MDRD) Af Amer 41 L, Est GFR (MDRD) Non-Af 34 L, BUN/Creatinine Ratio 28.6 H , Glucose 386 H, Calcium 6.9 L, Magnesium 1.8, Troponin I < 0.015 06/16/20 22:55: Phosphorus 1.3 L 06/16/20 22:56: POC Glucose 359 H 06/16/20 23:51: POC Glucose 363 H 06/17/20 00:53: POC Glucose 306 H 06/17/20 02:27: POC Glucose 264 H 06/17/20 02:32: Sodium 142, Potassium 4.1, Chloride 106, Carbon Dioxide 27.0, Anion Gap 9, BUN 64 H, Creatinine 2.32 H, Estim Creat Clear Calc 43.73, Est GFR (MDRD) Af Amer 40 L, Est GFR (MDRD) Non-Af 33 L, BUN/Creatinine Ratio 27.6 H, Glucose 262 H, Calcium 6.9 L 06/17/20 02:32: WBC 13.3 H, RBC 3.29 L, Hgb 10.4 L, Hct 30.2 L, MCV 91.8, MCH 31.6, MCHC 34.4, RDW Std Deviation 47.9 H, RDW Coeff of Andreas 14.0, Plt Count 238, MPV 9.9, Immature Gran % (Auto) 0.500, Neut % (Auto) 77.0 H, Lymph % (Auto) 12.8 L, [place] % (Auto) 9.2, Eos % (Auto) 0.1, Baso % (Auto) 0.4, Absolute Neuts (auto) 10.3 H, Absolute Lymphs (auto) 1.70, Nucleated RBC % 0 06/17/20 02:32: Troponin I < 0.015 06/17/20 03:28: POC Glucose 199 H 06/17/20 04:41: POC Glucose 159 H 06/17/20 05:37: POC Glucose 119 H 06/17/20 05:50: Urine Opiates Screen NEGATIVE, Urine Methadone Screen NEGATIVE, Ur Barbiturates Screen NEGATIVE, Ur Phencyclidine Scrn NEGATIVE, Ur Amphetamines Screen NEGATIVE, U Methamphetamin-MDMA NEGATIVE, U Benzodiazepines Scrn NEGATIVE, Urine Cocaine Screen NEGATIVE, U Cannabinoids Screen NEGATIVE, Ur Drug Screen Comment 06/17/20 05:50: Urine Color Yellow, Urine Clarity Clear, Urine pH 5.0, Ur Specific [place] 1.015, Urine Protein 500 H, Urine Glucose (UA) 1000 H, Urine Ketones 150 H, Urine Occult Blood 25 H, Urine Nitrite Negative, Urine Bilirubin Negative, Urine Urobilinogen Normal, Ur Leukocyte Esterase 25 H, Urine RBC 0-5 SEEN, Urine WBC 0-5 SEEN, Ur Squamous Epith Cells 0-5 SEEN, Urine Bacteria RARE, Urine Mucus 0 SEEN 06/17/20 06:00: Sodium 143, Potassium 3.5, Chloride 109 H, Carbon Dioxide 27.0, Anion Gap 7, BUN 63 H, Creatinine 2.12 H, Estim Creat Clear Calc 47.85, Est GFR (MDRD) Af Amer 44 L, Est GFR (MDRD) Non-Af 36 L, BUN/Creatinine Ratio 29.7 H, Glucose 104, Calcium 6.8 L 06/17/20 06:51: POC Glucose 73 06/17/20 07:41: POC Glucose 61 L 06/17/20 08:27: POC Glucose 71 06/17/20 11:20: POC Glucose 175 H Current Medications Acetaminophen (Acetaminophen 325 Mg Tablet) 650 mg PO Q6H PRN PRN PRN Reason: Pain Score 1-10/Temp > 100.7 F Last Admin: 06/16/20 22:07 Dose: 650 mg Documented by: Al Hydroxide/Mg Hydroxide (Mag Hydrox/Al Hydrox/Simeth 30 Ml Udc) 30 ml PO Q6H PRN PRN PRN Reason: dyspesia Albuterol Sulfate (Albuterol 2.5 Mg/3 Ml Vial.Neb.) 2.5 mg INHALATION Q4H PRN PRN Reason: SHORTNESS OF BREATH Last Admin: 06/16/20 19:10 Dose: 2.5 mg Documented by: Bisacodyl (Bisacodyl 10 Mg Suppository) 10 mg RECTAL DAILY PRN PRN Reason: Constipation Dextrose (Dextrose 50%-Water 25 Gm/50 Ml Disp.Syrin) 0 gm IV X1 PRN; Protocol PRN Reason: HYPOGLYCEMIA Dicyclomine HCl (Dicyclomine 10 Mg Capsule) 20 mg PO Q6H PRN PRN PRN Reason: abdominal discomfort Enoxaparin Sodium (Enoxaparin 40 Mg/0.4 Ml Syringe) 40 mg SC DAILY@0600 [facility] Last Admin: 06/17/20 06:56 Dose: 40 mg Documented by: Folic Acid (Folic Acid 1 Mg Tablet) 1 mg PO DAILY@0800 [facility] Last Admin: 06/17/20 08:35 Dose: 1 mg Documented by: Gabapentin (Gabapentin 300 Mg Capsule) 300 mg PO Q8H PRN PRN PRN Reason: moderate to severe anxiety Glucagon (Glucagon 1 Mg/Ml Syringe) 1 mg IM .X1 PRN PRN Reason: Hypoglycemia Hydroxyzine Pamoate (Hydroxyzine Keysha 25 Mg Capsule) 50 mg PO Q4H PRN PRN PRN Reason: mild anxiety Sodium Chloride () 250 mls @ 15 mls/hr IV .[id number] PRN PRN Reason: Saline Flush Sodium Chloride () 250 mls @ 15 mls/hr IV .[id number] PRN PRN Reason: Additional IVPB Infusion Insulin Glargine (Insulin Glargine 100 Units/Ml Pen) 15 units SC BREAKFAST [facility] Insulin Human Lispro (Insulin Lispro 100 Unit/Ml Insuln.Pen) 0 unit SC ACHS [facility]; Protocol Last Admin: 06/17/20 11:25 Dose: 2 u Documented by: Insulin Human Lispro (Insulin Lispro 100 Unit/Ml Insuln.Pen) 5 unit SC TIDAC [facility] Last Admin: 06/17/20 11:25 Dose: 5 u Documented by: Loperamide HCl (Loperamide 2 Mg Capsule) 2 mg PO Q4H PRN PRN PRN Reason: LOOSE STOOLS Lorazepam (Lorazepam 1 Mg Tablet) 2 mg PO Q2H PRN PRN; Protocol PRN Reason: CIWA score > 8 but <15 Lorazepam (Lorazepam 1 Mg Tablet) 2 mg PO UD PRN; Protocol PRN Reason: CIWA score >/=15. Lorazepam (Lorazepam 2 Mg/Ml Syringe) 2 mg IV Q2H PRN PRN; Protocol PRN Reason: CIWA score > 8 but <15 Lorazepam (Lorazepam 2 Mg/Ml Syringe) 2 mg IV UD PRN; Protocol PRN Reason: CIWA score >/=15. Lorazepam (Lorazepam 1 Mg Tablet) 2 mg PO Q4H [facility]; Taper Stop: 06/21/20 02:14 Last Admin: 06/17/20 11:06 Dose: Not Given Documented by: Multivitamins (Multivitamins,Therapeutic Tablet) 1 tablet PO DAILYCM [facility] Last Admin: 06/17/20 08:35 Dose: 1 tablet Documented by: Nitroglycerin (Nitroglycerin (Inpatient Use) 0.4 Mg Tab.Subl) 0.4 mg SUBLINGUAL Q5M PRN PRN Reason: CARDIAC/CHEST PAIN Ondansetron HCl (Ondansetron 4 Mg/2 Ml Vial) 4 mg IV Q6H PRN PRN PRN Reason: NAUSEA/VOMITING Last Admin: 06/16/20 17:32 Dose: 4 mg Documented by: Ondansetron HCl (Ondansetron 8 Mg Tablet) 8 mg PO Q8H PRN PRN PRN Reason: NAUSEA Senna (Senna Tablet) 2 tablet PO QHS PRN PRN Reason: Constipation Sodium Chloride (0.9% Saline Lock 10 Ml Syringe) 10 - 40 ml IV UD PRN PRN Reason: SALINE FLUSH Last Admin: 06/17/20 08:44 Dose: 10 ml Documented by: Thiamine HCl (Thiamine Hydrochloride 100 Mg Tablet) 100 mg PO DAILYCM [facility] Last Admin: 06/17/20 08:35 Dose: 100 mg Documented by: Trazodone HCl (Trazodone 100 Mg Tablet) 100 mg PO QHS PRN PRN Reason: INSOMNIA Last Admin: 06/16/20 22:08 Dose: 100 mg Documented by: STROKE Vital Signs/Narrative: Vital Signs Pulse Resp BP Pulse Ox 06/17/20 11:00 81 18 117/64 100 06/17/20 10:00 92 16 125/93 H 100 Medical Necessity - Tobacco Use Smoking Status: Current every day smoker Tobacco Use: Cigarettes Assessment/Plan 1. Nausea and vomiting secondary to DKA and anion gap metabolic acidosis/ОЛЕГ/DM 1 -Lactic acidosis is resolved -Gap has closed x2 can transition him to long-acting insulin, IV fluids and a diet -Monitor blood sugar and continue long-acting insulin as well as mealtime insulin and sliding scale -Baseline creatinine is probably closer to 1.2 and he is down to 2.12 today 2. Alcohol withdrawal -He states that this admission was brought on by a binge drinking episode -Continue with alcohol withdrawal protocol, he would like to seek rehab once he is stable for outpatient treatment -On discharge can continue with his home thiamine and folic acid 3. Hyperlipidemia -Stable -Continue with statin 4. GERD -Stable -Continue with PPI DVT: Lovenox Inpatient E&M: [id number] [facility] Hosp L2
[2020-06-17] MEDS: LORazepam 1 MG Tablet 0.5 MG PO ×3 (14:30→21:25)
--- NOTE | 2020-06-17 16:15 | CASEMGMT ---
BRENNON CM Readmission Assessment. Previous Admission: 05/19/20-05/21/20 DX: Acute kidney injury DC Disposition : Home Prescriptions: dc phone call states mother picked up prescriptions Current Admission: DKA Patient admitted to ICU, placed on insulin gtt and IVF. History of poorly controlled diabetes with last A1c 11.8 in August. Hx: of ETOH abuse, liver cirrhosis, pancreatitis, Type 1 diabetes. -ETOH USE: SW spoke with patient and he is willing to have 180 referral made. DC PLAN: anticipate home on discharge.
--- NOTE | 2020-06-17 16:17 | CASEMGMT ---
Social Work Note JONES reviewed chart. SW met with pt 05/20 and provided pt with resources for ETOH, Anxiety/Depression. Pt presents back to [facility] after binge drinking episode. JONES met with pt. SW introduced self and role at [facility]. Pt is alert and orientated x3. Pt remembers receiving resources and states he took the resources to his PCP office and PCP was going to have Andriy call pt for an appointment and Andriy never did. SW asked pt if he called Andriy himself and pt denied. Pt states probably something else I did wrong. Pt states that he goes to [facility]. Pt states that he was doing well at home from his hospital stay. Pt states I had some bad days, and I binge drink. SW asked pt what kind of bad days he had. Pt states stress, losing his father recently, girlfriend dumped me. Pt states normal things people deal with. SW spoke with pt about how people can do through the same things and respond different to those events. SW explained that all people cope and deal with things differently. Pt confirms that when he drinks he binges, and can drink for days at a time. Pt states he lives with his mom and brother and identifies his mother has being good support for him. Pt states his brother does drink, but will not drink around pt. SW spoke with pt regarding [facility]AMP program and how someone from [facility] can meet with pt while pt is at [facility]. Pt agreeable to RAMP program and to speaking with someone from [facility]. SW explained that [facility] can assist pt with getting linked up with discharge plans from [facility]. Again, pt agreeable to RAMP and to speak with [facility]. Pt states he wishes to return home, states he will likely need diabetic supplies. SW explained that RN DARIELA and SW will also continue to follow pt. Pt states that he needs to learn organization skills. SW spoke with pt about getting organizer, pt states I have two I just need to use them. SW informed pt that getting linked up with counseling will help pt with organizational skills and learning positive coping skills. Pt able to identify that his drinking his his coping skill. Pt states that he has history of anxiety and depression and also states that his drinking is related to his anxiety and depression as well. Pt states that he also knows that when he binges, he has these episodes (ОЛЕГ, Nausea, Vomiting), but can't bring himself to stop drinking. SW spoke with pt about addiction and again explained the importance of getting linked up with a counselor. Pt denied any history of suicidal thoughts/plans/ideations. Pt currently denied any suicidal thoughts/plans/ideations. Pt denied lethal means in his home. Pt also states that having no teeth is difficult as well. Pt states that he has known two families that have lost people to suicide. Pt states I am self-sabotaging myself though and probably drinking myself to . Pt states I've been self-sabotaging myself before I ever started drinking. Pt states I will do something right and then do something wrong. Again, pt denied any current suicidal thoughts/plans/ideations. SW specifically asked him again if he were to be to be discharged today if he had plans to harm himself and again pt denied any current suicidal thoughts/plans/ideations. JONES informed pt that this worker will call [facility] and provide RAMP referral. Pt agreeable to RAMP referral. JONES updated BRENNON LYLE who will update physician that pt is agreeable to RAMP. JONES placed a call to [facility] treatment navigator and updated Drew on RAMP referral. Plan: Pt to be in RAMP program. Pt to be seen by [facility] for follow up plans at discharge. Kelly Barrera [employer], [employer]
[2020-06-17 16:43] LABS: Anion Gap 5 (5-15); BUN 52 mg/dL (7-18); BUN/Creat Ratio 28.6 RATIO (10-20); Chloride 107 mmol/L (98-107); Creatinine, Serum 1.82 mg/dL (0.70-1.30); EST Glomerular Filtration Rate 43 mL/min (>60); Est Glom Filt Rate - Afr Amer 52 mL/min (>60); Estimated Creatinine Clearance 55.74 ml/min; Glucose 102 mg/dL (74-106); Potassium 3.1 mmol/L (3.5-5.1); Sodium Level 142 mmol/L (136-145)
--- NOTE | 2020-06-17 19:45 | NURSING ---
Report given to RN on MS 3. Transported by Liz Hwang RN
[2020-06-17 21:25] LABS: Bedside Glucose 249 mg/dL (70-110)
[2020-06-18 02:00] VITALS: BP 155/96; PULSE 65; RESP 18; TEMP 36.5; O2SAT 98
[2020-06-18] MEDS: LORazepam 1 MG Tablet 0.5 MG PO ×5 (02:03→21:32)
[2020-06-18] MEDS: Enoxaparin 40 MG/0.4 ML Syringe SC (05:26)
[2020-06-18 06:24] LABS: Absolute Neutrophil Count 5.8 X10^3/uL (2.0-7.7); Basophil# 0.06 X10^3/uL; Basophil% 0.7 % (0-1); Eosinophils% 2.3 % (0-5); Hematocrit 32.7 % (40-54); Hemoglobin 10.6 g/dL (13.0-16.5); Lymphocyte % 25.1 % (19-41); Mean Corp Hgb Conc 32.4 g/dL (32-36); Mean Corpuscular Hgb 30.8 pg (27.0-32.0); Mean Corpuscular Volume 95.1 fL (80-94); Mean Platelet Vol. 10.3 fl (6.2-12.0); Monocyte# 0.48 X10^3/uL; Monocyte% 5.5 % (0-10); NRBC Flagged by Analyzer 0 % (0-5); Neutrophil # 5.79 X10^3/uL (2.7-7.7); Neutrophil % 66.1 % (47-70); Platelet Count 196 K/mm3 (150-450); RBC Distribution Width CV 14.3 % (11.6-14.6); RBC Distribution Width SD 50.1 fl (35.1-43.9); Red Blood Count 3.44 M/mm3 (4.6-6.2); White Blood Count 8.8 K/mm3 (4.4-11.0)
[2020-06-18 06:46] LABS: Anion Gap 6 (5-15); BUN 30 mg/dL (7-18); Calcium,Total 7.3 mg/dL (8.5-10.1); Chloride 106 mmol/L (98-107); Creatinine, Serum 1.25 mg/dL (0.70-1.30); EST Glomerular Filtration Rate 67 mL/min (>60); Est Glom Filt Rate - Afr Amer 81 mL/min (>60); Estimated Creatinine Clearance 81.16 ml/min; Glucose 222 mg/dL (74-106); Magnesium 1.6 mg/dL (1.6-2.6); Phosphorus 1.8 mg/dL (2.5-4.9); Potassium 3.6 mmol/L (3.5-5.1); Sodium Level 140 mmol/L (136-145)
[2020-06-18] MEDS: Insulin Lispro 100 UNIT/ML INSULN.PEN SC ×3 (08:15→21:31)
[2020-06-18] MEDS: Multivitamins,Therapeutic Tablet 1 TABLET PO (08:16)
[2020-06-18] MEDS: Folic Acid 1 MG Tablet PO (08:16)
[2020-06-18] MEDS: Thiamine Hydrochloride 100 MG Tablet PO (08:16)
[2020-06-18] MEDS: Insulin Lispro 100 UNIT/ML INSULN.PEN 10 UNIT SC ×3 (08:17→17:15)
[2020-06-18 08:25] VITALS: BP 174/98; PULSE 76; RESP 18; TEMP 36.7; O2SAT 98
[2020-06-18 10:01] LABS: Bedside Glucose 243 mg/dL (70-110)
[2020-06-18] MEDS: 0.9% Saline Lock 10 ML Syringe IV (10:21)
[2020-06-18 12:00] LABS: Bedside Glucose 162 mg/dL (70-110)
--- NOTE | 2020-06-18 12:04 | PN_ITS ---
Subjective: Feels tired and groggy. Otherwise no new issues. Blood sugars much improved Vitals/I&O's: Vital Signs Temp Pulse Resp BP Pulse Ox 98.1 F 76 18 174/98 H 98 06/18/20 08:25 06/18/20 08:25 06/18/20 08:25 06/18/20 08:25 06/18/20 08:25 Oxygen Delivery Method Room Air Weight: 204 lb 12.951 oz Body Mass Index (BMI) 27.1 Finger Stick Blood Glucose 73 Intake and Output for Last 24 Hours 06/16/20 06/17/20 06/18/20 23:59 23:59 23:59 Intake Total 3069.8 / 3069.8 4081.18 / 4081.18 400 / 400 Output Total 525 / 525 950 / 950 Balance 2544.8 / 2544.8 3131.18 / 3131.18 400 / 400 General: Alert, Oriented x3, Cooperative, No apparent distress HEENT: Atraumatic, PERRLA, EOMI, Normocephalic Oral: Moist Mucosa Neck: Supple, No JVD Lungs: Clear to auscultation, Normal air movement, No rhonchi, No wheeze, No rales Cardiovascular: Regular rate, Regular Rhythm, Normal S1, Normal S2, No murmurs Abdomen: Soft, Non Tender, Non-Distended, No Hepato-splenomegaly Extremities: No edema, Capillary Refill Less than 3 Seconds Skin: No rashes, No breakdown Neurological: Neuro grossly intact, Sensory exam intact to light touch and pain Psych/Mental Status: Flat Affect Laboratory Results 06/17/20 14:35: Sodium 142, Potassium 3.1 L, Chloride 107, Carbon Dioxide 30.0, Anion Gap 5, BUN 52 H, Creatinine 1.82 H, Estim Creat Clear Calc 55.74, Est GFR (MDRD) Af Amer 52 L, Est GFR (MDRD) Non-Af 43 L, BUN/Creatinine Ratio 28.6 H, Glucose 102, Calcium 7.0 L 06/17/20 21:21: POC Glucose 249 H 06/18/20 05:49: WBC 8.8, RBC 3.44 L, Hgb 10.6 L, Hct 32.7 L, MCV 95.1 H, MCH 30.8, MCHC 32.4 D, RDW Std Deviation 50.1 H, RDW Coeff of Andreas 14.3, Plt Count 196, MPV 10.3, Immature Gran % (Auto) 0.300, Neut % (Auto) 66.1, Lymph % (Auto) 25.1, [place] % (Auto) 5.5, Eos % (Auto) 2.3, Baso % (Auto) 0.7, Absolute Neuts (auto) 5.8, Absolute Lymphs (auto) 2.20, Nucleated RBC % 0 06/18/20 05:49: Sodium 140, Potassium 3.6, Chloride 106, Carbon Dioxide 28.0, Anion Gap 6, BUN 30 H, Creatinine 1.25, Estim Creat Clear Calc 81.16, Est GFR (MDRD) Af Amer 81, Est GFR (MDRD) Non-Af 67, BUN/Creatinine Ratio 24.0 H, Glucose 222 H, Calcium 7.3 L, Phosphorus 1.8 L, Magnesium 1.6 06/18/20 08:12: POC Glucose 243 H 06/18/20 11:57: POC Glucose 162 H Current Medications Acetaminophen (Acetaminophen 325 Mg Tablet) 650 mg PO Q6H PRN PRN PRN Reason: Pain Score 1-10/Temp > 100.7 F Last Admin: 06/16/20 22:07 Dose: 650 mg Documented by: Al Hydroxide/Mg Hydroxide (Mag Hydrox/Al Hydrox/Simeth 30 Ml Udc) 30 ml PO Q6H PRN PRN PRN Reason: dyspesia Albuterol Sulfate (Albuterol 2.5 Mg/3 Ml Vial.Neb.) 2.5 mg INHALATION Q4H PRN PRN Reason: SHORTNESS OF BREATH Last Admin: 06/16/20 19:10 Dose: 2.5 mg Documented by: Bisacodyl (Bisacodyl 10 Mg Suppository) 10 mg RECTAL DAILY PRN PRN Reason: Constipation Dextrose (Dextrose 50%-Water 25 Gm/50 Ml Disp.Syrin) 0 gm IV X1 PRN; Protocol PRN Reason: HYPOGLYCEMIA Dicyclomine HCl (Dicyclomine 10 Mg Capsule) 20 mg PO Q6H PRN PRN PRN Reason: abdominal discomfort Enoxaparin Sodium (Enoxaparin 40 Mg/0.4 Ml Syringe) 40 mg SC DAILY@0600 [facility] Last Admin: 06/18/20 05:26 Dose: 40 mg Documented by: Folic Acid (Folic Acid 1 Mg Tablet) 1 mg PO DAILY@0800 [facility] Last Admin: 06/18/20 08:16 Dose: 1 mg Documented by: Gabapentin (Gabapentin 300 Mg Capsule) 300 mg PO Q8H PRN PRN PRN Reason: moderate to severe anxiety Glucagon (Glucagon 1 Mg/Ml Syringe) 1 mg IM .X1 PRN PRN Reason: Hypoglycemia Hydroxyzine Pamoate (Hydroxyzine Keysha 25 Mg Capsule) 50 mg PO Q4H PRN PRN PRN Reason: mild anxiety Sodium Chloride () 250 mls @ 15 mls/hr IV .[id number] PRN PRN Reason: Saline Flush Sodium Chloride () 250 mls @ 15 mls/hr IV .[id number] PRN PRN Reason: Additional IVPB Infusion Potassium Phosphate 30 mm/ (Sodium Chloride) 260 mls @ 42 mls/hr IV X1 ONE Stop: 06/18/20 14:41 Last Admin: 06/18/20 10:22 Dose: 42 mls/hr Documented by: Insulin Glargine (Insulin Glargine 100 Units/Ml Pen) 25 units SC BREAKFAST [facility] Last Admin: 06/18/20 08:15 Dose: 25 u Documented by: Insulin Human Lispro (Insulin Lispro 100 Unit/Ml Insuln.Pen) 0 unit SC ACHS [facility]; Protocol Last Admin: 06/18/20 08:15 Dose: 4 u Documented by: Insulin Human Lispro (Insulin Lispro 100 Unit/Ml Insuln.Pen) 10 unit SC TIDAC [facility] Last Admin: 06/18/20 08:17 Dose: 10 u Documented by: Loperamide HCl (Loperamide 2 Mg Capsule) 2 mg PO Q4H PRN PRN PRN Reason: LOOSE STOOLS Lorazepam (Lorazepam 1 Mg Tablet) 2 mg PO Q2H PRN PRN; Protocol PRN Reason: CIWA score > 8 but <15 Lorazepam (Lorazepam 1 Mg Tablet) 2 mg PO UD PRN; Protocol PRN Reason: CIWA score >/=15. Lorazepam (Lorazepam 2 Mg/Ml Syringe) 2 mg IV Q2H PRN PRN; Protocol PRN Reason: CIWA score > 8 but <15 Lorazepam (Lorazepam 2 Mg/Ml Syringe) 2 mg IV UD PRN; Protocol PRN Reason: CIWA score >/=15. Lorazepam (Lorazepam 1 Mg Tablet) 1 mg PO Q4H [facility]; Taper Stop: 06/21/20 02:14 Last Admin: 06/18/20 10:21 Dose: 1 mg Documented by: Multivitamins ([facility]rapeutic [facility]t) [facility] Last Admin: 06/18/20 08:16 Dose: 1 tablet Documented by: Nitroglycerin (Nitroglycerin (Inpatient Use) 0.4 Mg Tab.Subl) 0.4 mg SUBLINGUAL Q5M PRN PRN Reason: CARDIAC/CHEST PAIN Ondansetron HCl (Ondansetron 8 Mg Tablet) 8 mg PO Q8H PRN PRN PRN Reason: NAUSEA Senna (Senna Tablet) 2 tablet PO QHS PRN PRN Reason: Constipation Sodium Chloride (0.9% Saline Lock 10 Ml Syringe) 10 - 40 ml IV UD PRN PRN Reason: SALINE FLUSH Last Admin: 06/18/20 10:21 Dose: 20 ml Documented by: Thiamine HCl (Thiamine Hydrochloride 100 Mg Tablet) [facility] Last Admin: 06/18/20 08:16 Dose: 100 mg Documented by: Trazodone HCl (Trazodone 100 Mg Tablet) 100 mg PO QHS PRN PRN Reason: INSOMNIA Last Admin: 06/16/20 22:08 Dose: 100 mg Documented by: STROKE Vital Signs/Narrative: Vital Signs Temp Pulse Resp BP Pulse Ox 06/18/20 08:25 98.1 F 76 18 174/98 H 98 Medical Necessity - Tobacco Use Smoking Status: Current every day smoker Tobacco Use: Cigarettes Assessment/Plan 1. Nausea and vomiting secondary to DKA and anion gap metabolic acidosis/ОЛЕГ/DM 1 -Lactic acidosis is resolved -Gap has closed x2 can transition him to long-acting insulin, IV fluids and a diet -Monitor blood sugar and continue long-acting insulin as well as mealtime insulin and sliding scale -Baseline creatinine is probably closer to 1.2 and he is down to 1.25 today 2. Alcohol withdrawal -He states that this admission was brought on by a binge drinking episode -Continue with alcohol withdrawal protocol, he would like to seek rehab once he is stable for outpatient treatment -On discharge can continue with his home thiamine and folic acid 3. Hyperlipidemia -Stable -Continue with statin 4. GERD -Stable -Continue with PPI DVT: Lovenox Inpatient E&M: [id number] Subs Hosp L2
[2020-06-18 14:52] VITALS: BP 119/83; PULSE 82; RESP 18; TEMP 37; O2SAT 98
[2020-06-18 16:51] LABS: Bedside Glucose 103 mg/dL (70-110)
[2020-06-18 21:22] VITALS: BP 126/86; PULSE 71; RESP 18; TEMP 36.7; O2SAT 99
[2020-06-18 22:36] LABS: Bedside Glucose 150 mg/dL (70-110)
[2020-06-19 02:50] VITALS: BP 167/105; PULSE 71; RESP 18; TEMP 36.7; O2SAT 100
[2020-06-19] MEDS: LORazepam 1 MG Tablet 0.5 MG PO ×4 (02:56→20:16)
[2020-06-19] MEDS: Enoxaparin 40 MG/0.4 ML Syringe SC (06:33)
[2020-06-19 06:55] LABS: Bedside Glucose 215 mg/dL (70-110)
[2020-06-19] MEDS: Insulin Lispro 100 UNIT/ML INSULN.PEN SC ×2 (08:12→16:57)
[2020-06-19] MEDS: Insulin Lispro 100 UNIT/ML INSULN.PEN 10 UNIT SC ×2 (08:14→16:56)
[2020-06-19] MEDS: Folic Acid 1 MG Tablet PO (08:18)
[2020-06-19] MEDS: Thiamine Hydrochloride 100 MG Tablet PO (08:18)
[2020-06-19] MEDS: Multivitamins,Therapeutic Tablet 1 TABLET PO (08:18)
[2020-06-19 08:19] LABS: Anion Gap 8 (5-15); BUN 18 mg/dL (7-18); BUN/Creat Ratio 17.8 RATIO (10-20); Calcium,Total 8.2 mg/dL (8.5-10.1); Chloride 102 mmol/L (98-107); Creatinine, Serum 1.01 mg/dL (0.70-1.30); EST Glomerular Filtration Rate 85 mL/min (>60); Est Glom Filt Rate - Afr Amer 103 mL/min (>60); Estimated Creatinine Clearance 100.44 ml/min; Glucose 193 mg/dL (74-106); Magnesium 1.8 mg/dL (1.6-2.6); Phosphorus 3.1 mg/dL (2.5-4.9); Sodium Level 137 mmol/L (136-145)
[2020-06-19 08:29] VITALS: BP 140/83; PULSE 83; RESP 16; TEMP 37.2; O2SAT 100
--- NOTE | 2020-06-19 11:56 | NURSING ---
emiliana from [facility] here, to see pt
[2020-06-19 12:31] LABS: Bedside Glucose 134 mg/dL (70-110)
[2020-06-19 14:23] VITALS: BP 119/72; PULSE 67; RESP 16; TEMP 36.8; O2SAT 98
--- NOTE | 2020-06-19 15:37 | PN_ITS ---
Subjective: Doing well, feels little bit better than he did yesterday. He seems ready to start rehab and he met with 180 today and should be able to be discharged straight to rehab when ready Vitals/I&O's: Vital Signs Temp Pulse Resp BP Pulse Ox 98.3 F 67 16 119/72 98 06/19/20 14:23 06/19/20 14:23 06/19/20 14:23 06/19/20 14:23 06/19/20 14:23 Oxygen Delivery Method Room Air Weight: 207 lb 3.752 oz Body Mass Index (BMI) 27.1 Finger Stick Blood Glucose 73 Intake and Output for Last 24 Hours 06/17/20 06/18/20 06/19/20 23:59 23:59 23:59 Intake Total 4081.18 / 4081.18 2664 / 2664 200 / 200 Output Total 950 / 950 Balance 3131.18 / 3131.18 2664 / 2664 200 / 200 General: Alert, Oriented x3, Cooperative, No apparent distress HEENT: Atraumatic, PERRLA, EOMI, Normocephalic Oral: Moist Mucosa Neck: Supple, No JVD Lungs: Clear to auscultation, Normal air movement, No rhonchi, No wheeze, No rales Cardiovascular: Regular rate, Regular Rhythm, Normal S1, Normal S2, No murmurs Abdomen: Soft, Non Tender, Non-Distended, No Hepato-splenomegaly Extremities: No edema, Capillary Refill Less than 3 Seconds Skin: No rashes, No breakdown Neurological: Neuro grossly intact, Sensory exam intact to light touch and pain Psych/Mental Status: Flat Affect Laboratory Results 06/18/20 16:42: POC Glucose 103 06/18/20 21:31: POC Glucose 150 H 06/19/20 06:36: POC Glucose 215 H 06/19/20 06:45: Sodium 137, Potassium 4.0, Chloride 102, Carbon Dioxide 27.0, Anion Gap 8, BUN 18, Creatinine 1.01, Estim Creat Clear Calc 100.44, Est GFR (MDRD) Af Amer 103, Est GFR (MDRD) Non-Af 85, BUN/Creatinine Ratio 17.8, Glucose 193 H, Calcium 8.2 L, Phosphorus 3.1, Magnesium 1.8 06/19/20 12:08: POC Glucose 134 H Current Medications Acetaminophen (Acetaminophen 325 Mg Tablet) 650 mg PO Q6H PRN PRN PRN Reason: Pain Score 1-10/Temp > 100.7 F Last Admin: 06/16/20 22:07 Dose: 650 mg Documented by: Al Hydroxide/Mg Hydroxide (Mag Hydrox/Al Hydrox/Simeth 30 Ml Udc) 30 ml PO Q6H PRN PRN PRN Reason: dyspesia Albuterol Sulfate (Albuterol 2.5 Mg/3 Ml Vial.Neb.) 2.5 mg INHALATION Q4H PRN PRN Reason: SHORTNESS OF BREATH Last Admin: 06/16/20 19:10 Dose: 2.5 mg Documented by: Bisacodyl (Bisacodyl 10 Mg Suppository) 10 mg RECTAL DAILY PRN PRN Reason: Constipation Dextrose (Dextrose 50%-Water 25 Gm/50 Ml Disp.Syrin) 0 gm IV X1 PRN; Protocol PRN Reason: HYPOGLYCEMIA Dicyclomine HCl (Dicyclomine 10 Mg Capsule) 20 mg PO Q6H PRN PRN PRN Reason: abdominal discomfort Enoxaparin Sodium (Enoxaparin 40 Mg/0.4 Ml Syringe) 40 mg SC DAILY@0600 [facility] Last Admin: 06/19/20 06:33 Dose: 40 mg Documented by: Folic Acid (Folic Acid 1 Mg Tablet) 1 mg PO DAILY@0800 [facility] Last Admin: 06/19/20 08:18 Dose: 1 mg Documented by: Gabapentin (Gabapentin 300 Mg Capsule) 300 mg PO Q8H PRN PRN PRN Reason: moderate to severe anxiety Glucagon (Glucagon 1 Mg/Ml Syringe) 1 mg IM .X1 PRN PRN Reason: Hypoglycemia Hydroxyzine Pamoate (Hydroxyzine Keysha 25 Mg Capsule) 50 mg PO Q4H PRN PRN PRN Reason: mild anxiety Sodium Chloride () 250 mls @ 15 mls/hr IV .[id number] PRN PRN Reason: Saline Flush Sodium Chloride () 250 mls @ 15 mls/hr IV .[id number] PRN PRN Reason: Additional IVPB Infusion Insulin Glargine (Insulin Glargine 100 Units/Ml Pen) 25 units SC BREAKFAST [facility] Last Admin: 06/19/20 08:13 Dose: 25 u Documented by: Insulin Human Lispro (Insulin Lispro 100 Unit/Ml Insuln.Pen) 0 unit SC ACHS [facility]; Protocol Last Admin: 06/19/20 12:09 Dose: Not Given Documented by: Insulin Human Lispro (Insulin Lispro 100 Unit/Ml Insuln.Pen) 10 unit SC TIDAC [facility] Last Admin: 06/19/20 13:39 Dose: Not Given Documented by: Loperamide HCl (Loperamide 2 Mg Capsule) 2 mg PO Q4H PRN PRN PRN Reason: LOOSE STOOLS Lorazepam (Lorazepam 1 Mg Tablet) 2 mg PO Q2H PRN PRN; Protocol PRN Reason: CIWA score > 8 but <15 Lorazepam (Lorazepam 1 Mg Tablet) 2 mg PO UD PRN; Protocol PRN Reason: CIWA score >/=15. Lorazepam (Lorazepam 2 Mg/Ml Syringe) 2 mg IV Q2H PRN PRN; Protocol PRN Reason: CIWA score > 8 but <15 Lorazepam (Lorazepam 2 Mg/Ml Syringe) 2 mg IV UD PRN; Protocol PRN Reason: CIWA score >/=15. Lorazepam (Lorazepam 1 Mg Tablet) 1 mg PO Q6H [facility]; Taper Stop: 06/21/20 02:14 Last Admin: 06/19/20 14:27 Dose: 1 mg Documented by: Multivitamins ([facility]t) [facility] Last Admin: 06/19/20 08:18 Dose: 1 tablet Documented by: Nicotine (Nicotine 21 Mg Patch) 21 mg TRANSDERM. DAILY [facility] Last Admin: 06/19/20 08:18 Dose: 21 mg Documented by: Nitroglycerin (Nitroglycerin (Inpatient Use) 0.4 Mg Tab.Subl) 0.4 mg SUBLINGUAL Q5M PRN PRN Reason: CARDIAC/CHEST PAIN Ondansetron HCl (Ondansetron 8 Mg Tablet) 8 mg PO Q8H PRN PRN PRN Reason: NAUSEA Senna (Senna Tablet) 2 tablet PO QHS PRN PRN Reason: Constipation Sodium Chloride (0.9% Saline Lock 10 Ml Syringe) 10 - 40 ml IV UD PRN PRN Reason: SALINE FLUSH Last Admin: 06/18/20 10:21 Dose: 20 ml Documented by: Thiamine HCl (Thiamine Hydrochloride 100 Mg Tablet) [facility] Last Admin: 11/22/20 08:18 Dose: 100 mg Documented by: Trazodone HCl (Trazodone 100 Mg Tablet) 100 mg PO QHS PRN PRN Reason: INSOMNIA Last Admin: 06/16/20 22:08 Dose: 100 mg Documented by: STROKE Vital Signs/Narrative: Vital Signs Temp Pulse Resp BP Pulse Ox 06/19/20 14:23 98.3 F 67 16 119/72 98 Medical Necessity - Tobacco Use Smoking Status: Current every day smoker Tobacco Use: Cigarettes Assessment/Plan 1. Nausea and vomiting secondary to DKA and anion gap metabolic acidosis/ОЛЕГ/DM 1 -Lactic acidosis is resolved -Gap has closed x2 can transition him to long-acting insulin, IV fluids and a diet -Monitor blood sugar and continue long-acting insulin as well as mealtime insulin and sliding scale -Baseline creatinine is probably closer to 1.2 and he is down to 1.01 today 2. Alcohol withdrawal -He states that this admission was brought on by a binge drinking episode -Continue with alcohol withdrawal protocol, seen by 180 today, they will set up outpatient follow-up and he should be able to be discharged straight to rehab when ready -On discharge can continue with his home thiamine and folic acid 3. Hyperlipidemia -Stable -Continue with statin 4. GERD -Stable -Continue with PPI DVT: Lovenox Inpatient E&M: 59216 Subs Hosp L2
[2020-06-19 17:05] LABS: Bedside Glucose 228 mg/dL (70-110)
[2020-06-19 20:07] VITALS: BP 124/87; PULSE 72; RESP 16; TEMP 36.8; O2SAT 100
[2020-06-19 21:45] LABS: Bedside Glucose 91 mg/dL (70-110)
[2020-06-20 02:12] VITALS: BP 156/100; PULSE 98; RESP 16; TEMP 36.7; O2SAT 100
[2020-06-20] MEDS: LORazepam 1 MG Tablet 0.5 MG PO ×2 (02:16→08:13)
[2020-06-20] MEDS: Enoxaparin 40 MG/0.4 ML Syringe SC (06:49)
[2020-06-20 06:56] LABS: Bedside Glucose 154 mg/dL (70-110)
[2020-06-20 07:56] VITALS: BP 152/90; PULSE 66; RESP 18; TEMP 36.7; O2SAT 99
[2020-06-20] MEDS: Insulin Lispro 100 UNIT/ML INSULN.PEN 10 UNIT SC (08:07)
[2020-06-20] MEDS: Thiamine Hydrochloride 100 MG Tablet PO (08:08)
[2020-06-20] MEDS: Folic Acid 1 MG Tablet PO (08:08)
[2020-06-20] MEDS: Multivitamins,Therapeutic Tablet 1 TABLET PO (08:08)
[2020-06-20] MEDS: Insulin Lispro 100 UNIT/ML INSULN.PEN SC (08:18)
--- NOTE | 2020-06-20 10:28 | DCINST_ITS ---
- Discharge Diagnoses Reason(s) for Visit for Discharge Instructions: Acute DKA/ОЛЕГ/Alcohol withdrawal You will use the following diet at home:: Calorie/Carbohydrate Controlled (specify 1200, 1400, etc) Your food should be the consistency of: Regular Your liquids should be the consistency of: Regular/Thin Discharge Activity: Return to Normal Activity Additional Instructions: Continue to take all your medications as prescribed. Follow-up with your outpatient behavioral health plan with [facility]. You are strongly advised to quit drinking and smoking cigarettes. Allergies/Adverse Reactions: Allergies sulfamethoxazole [From Bactrim] Allergy (Verified 05/19/20 17:19) Hives trimethoprim [From Bactrim] Allergy (Verified 05/19/20 17:19) Hives Medications to take at Discharge Albuterol IH (ProAir) [Proair Hfa] 2 puff INHALATION Q4H PRN 01/20/18 Cholecalciferol (VIT D3) [Vitamin D3] 1,000 unit PO DAILY 01/20/18 Gabapentin [Neurontin] 300 mg PO TID 09/25/18 Folic Acid 1 mg PO DAILY #30 tab 05/21/20 Pantoprazole Sodium [Protonix] 40 mg PO DAILY #30 tab 05/21/20 Thiamine HCl 100 mg PO DAILY #30 tab 05/21/20 Atorvastatin Calcium 40 mg PO DAILY 06/16/20 Insulin Aspart [Insulin Aspart Flexpen] 10 unit SC TIDCM 06/16/20 Insulin Degludec [Tresiba Flextouch U-100] 28 unit SC DAILY 06/16/20 Tamsulosin HCl [Flomax] 0.4 mg PO DAILY 06/16/20 Acetaminophen [Tylenol Tablet] 650 mg PO Q6H PRN PRN tablet 06/20/20 Primary Care Physician: Care Physician,No Primary [NON-STAFF] - Please follow up with your Primary Care Physician in: within 2 weeks Test Results: Test results from this visit will be discussed in further detail at your follow- up appointment, if applicable. Proposed Discharge Date: 06/20/20
--- NOTE | 2020-06-20 10:30 | PCM.DC.SUM ---
Discharge Date and Diagnosis Date of Admission: 06/16/20 Date of Discharge: 06/20/20 - Primary Discharge Diagnosis Acute Problems: Acute DKA Acute kidney injury Alcohol withdrawal Hypokalemia - Secondary Discharge Diagnosis Chronic Problems: Chronic Problems (Last Reviewed 03/10/20 @ 09:[address] Armin Del Toro MD) Type 1 diabetes mellitus (Chronic) Liver cirrhosis (Chronic) History of tobacco abuse (Chronic) Pseudocyst Pancreatic Tail (Chronic) History of pancreatitis (Chronic) History of alcohol use (Chronic) Hospital Course and Treatment Operations: None Procedures: None Summary of Care Provided: The patient is a 44 year old M with past medical history of type I DM, chronic alcohol use disorder, liver cirrhosis, recurrent pancreatitis who comes in on 06/16/20 with intractable nausea and vomiting ongoing for 2 days. Patient has been binging on drinks. He started to have nausea and vomiting. He stated this was normal usually after he has alcoholic binges. He complains of swelling of his lower lip which is common with past episodes. His vitals in the ED were stable. His blood chemistries showed anion gap of 27. His creatinine was 2.29. Urine ketones were positive. His blood sugar was 269. Lactic acid was 9.2. He was admitted to the ICU and managed as acute DKA on insulin drip. He received copious amounts of IV fluids. His anion gap closed on the insulin drip and he was transitioned to long-acting insulins. He was also started on alcohol withdrawal protocol. Outpatient behavioral health were consulted. His kidney function was back to baseline at the time of discharge. His blood glucose remained stable on his previous insulin regimen. He will follow-up with his primary care doctor within 1 to 2 weeks. He will need repeat blood work to be done within a week to follow-up with his kidney function. Patient to follow-up in the outpatient with 180 as scheduled. Subjective: On the day of discharge, patient was seen and examined. Denied any new complaints. His blood sugars are better controlled. Objective: Physical exam: General: Alert, Oriented x3, Cooperative, No apparent distress HEENT: Atraumatic, PERRLA, EOMI, Normocephalic Oral: Moist Mucosa Neck: Supple, No JVD Lungs: Clear to auscultation, Normal air movement, No rhonchi, No wheeze, No rales Cardiovascular: Regular rate, Regular Rhythm, Normal S1, Normal S2, No murmurs Abdomen: Soft, Non Tender, Non-Distended, No Hepato-splenomegaly Extremities: No edema, Capillary Refill Less than 3 Seconds Skin: No rashes, No breakdown Neurological: Neuro grossly intact, Sensory exam intact to light touch and pain Psych/Mental Status: Flat Affect - Physical Exam Vitals/I&O's: Vital Signs Temp Pulse Resp BP Pulse Ox 98.0 F 66 18 152/90 H 99 06/20/20 07:56 06/20/20 07:56 06/20/20 07:56 06/20/20 07:56 06/20/20 07:56 Oxygen Delivery Method Room Air Weight: 94 kg Body Mass Index (BMI) 27.1 Finger Stick Blood Glucose 73 Intake and Output for Last 24 Hours 06/18/20 06/19/20 06/20/20 23:59 23:59 23:59 Intake Total 2664 / 2664 200 / 500 600 / 600 Balance 2664 / 2664 200 / 500 600 / 600 Laboratory Results 06/19/20 12:08: POC Glucose 134 H 06/19/20 16:56: POC Glucose 228 H 06/19/20 21:39: POC Glucose 91 06/20/20 06:48: POC Glucose 154 H Current Medications Acetaminophen (Acetaminophen 325 Mg Tablet) 650 mg PO Q6H PRN PRN PRN Reason: Pain Score 1-10/Temp > 100.7 F Last Admin: 06/16/20 22:07 Dose: 650 mg Documented by: Al Hydroxide/Mg Hydroxide (Mag Hydrox/Al Hydrox/Simeth 30 Ml Udc) 30 ml PO Q6H PRN PRN PRN Reason: dyspesia Albuterol Sulfate (Albuterol 2.5 Mg/3 Ml Vial.Neb.) 2.5 mg INHALATION Q4H PRN PRN Reason: SHORTNESS OF BREATH Last Admin: 06/16/20 19:10 Dose: 2.5 mg Documented by: Bisacodyl (Bisacodyl 10 Mg Suppository) 10 mg RECTAL DAILY PRN PRN Reason: Constipation Dextrose (Dextrose 50%-Water 25 Gm/50 Ml Disp.Syrin) 0 gm IV X1 PRN; Protocol PRN Reason: HYPOGLYCEMIA Dicyclomine HCl (Dicyclomine 10 Mg Capsule) 20 mg PO Q6H PRN PRN PRN Reason: abdominal discomfort Enoxaparin Sodium (Enoxaparin 40 Mg/0.4 Ml Syringe) 40 mg SC DAILY@0600 [facility] Last Admin: 06/20/20 06:49 Dose: 40 mg Documented by: Folic Acid (Folic Acid 1 Mg Tablet) 1 mg PO DAILY@0800 [facility] Last Admin: 06/20/20 08:08 Dose: 1 mg Documented by: Gabapentin (Gabapentin 300 Mg Capsule) 300 mg PO Q8H PRN PRN PRN Reason: moderate to severe anxiety Glucagon (Glucagon 1 Mg/Ml Syringe) 1 mg IM .X1 PRN PRN Reason: Hypoglycemia Hydroxyzine Pamoate (Hydroxyzine Keysha 25 Mg Capsule) 50 mg PO Q4H PRN PRN PRN Reason: mild anxiety Sodium Chloride () 250 mls @ 15 mls/hr IV .[id number] PRN PRN Reason: Saline Flush Sodium Chloride () 250 mls @ 15 mls/hr IV .[id number] PRN PRN Reason: Additional IVPB Infusion Insulin Glargine (Insulin Glargine 100 Units/Ml Pen) 25 units SC BREAKFAST [facility] Last Admin: 06/20/20 08:06 Dose: 25 u Documented by: Insulin Human Lispro (Insulin Lispro 100 Unit/Ml Insuln.Pen) 0 unit SC ACHS [facility]; Protocol Last Admin: 06/20/20 08:18 Dose: 2 u Documented by: Insulin Human Lispro (Insulin Lispro 100 Unit/Ml Insuln.Pen) 10 unit SC TIDAC [facility] Last Admin: 06/20/20 08:07 Dose: 10 u Documented by: Loperamide HCl (Loperamide 2 Mg Capsule) 2 mg PO Q4H PRN PRN PRN Reason: LOOSE STOOLS Lorazepam (Lorazepam 1 Mg Tablet) 2 mg PO Q2H PRN PRN; Protocol PRN Reason: CIWA score > 8 but <15 Lorazepam (Lorazepam 1 Mg Tablet) 2 mg PO UD PRN; Protocol PRN Reason: CIWA score >/=15. Lorazepam (Lorazepam 2 Mg/Ml Syringe) 2 mg IV Q2H PRN PRN; Protocol PRN Reason: CIWA score > 8 but <15 Lorazepam (Lorazepam 2 Mg/Ml Syringe) 2 mg IV UD PRN; Protocol PRN Reason: CIWA score >/=15. Lorazepam (Lorazepam 1 Mg Tablet) 0.5 mg PO Q6H [facility]; Taper Stop: 06/21/20 02:14 Last Admin: 06/20/20 08:13 Dose: 0.5 mg Documented by: Multivitamins ([facility]rapeutic [facility]t) [facility] Last Admin: 06/20/20 08:08 Dose: 1 tablet Documented by: Nicotine (Nicotine 21 Mg Patch) 21 mg TRANSDERM. DAILY [facility] Last Admin: 06/19/20 08:18 Dose: 21 mg Documented by: Nitroglycerin (Nitroglycerin (Inpatient Use) 0.4 Mg Tab.Subl) 0.4 mg SUBLINGUAL Q5M PRN PRN Reason: CARDIAC/CHEST PAIN Ondansetron HCl (Ondansetron 8 Mg Tablet) 8 mg PO Q8H PRN PRN PRN Reason: NAUSEA Senna (Senna Tablet) 2 tablet PO QHS PRN PRN Reason: Constipation Sodium Chloride (0.9% Saline Lock 10 Ml Syringe) 10 - 40 ml IV UD PRN PRN Reason: SALINE FLUSH Last Admin: 06/18/20 10:21 Dose: 20 ml Documented by: Thiamine HCl ([facility] Hydrochloride 100 Mg Tablet) [facility] Last Admin: 06/20/20 08:08 Dose: 100 mg Documented by: Trazodone HCl (Trazodone 100 Mg Tablet) 100 mg PO QHS PRN PRN Reason: INSOMNIA Last Admin: 06/16/20 22:08 Dose: 100 mg Documented by: Discharge Diet: Low fat/ Low Cholesterol, 2000 mg Sodium Diet, Carb Control Diet Discharge Activity: Return to Normal Activity Home Medications: Medications to take at Discharge Albuterol IH (ProAir) [Proair Hfa] 2 puff INHALATION Q4H PRN 01/20/18 Cholecalciferol (VIT D3) [Vitamin D3] 1,000 unit PO DAILY 01/20/18 Gabapentin [Neurontin] 300 mg PO TID 09/25/18 Folic Acid 1 mg PO DAILY #30 tab 05/21/20 Pantoprazole Sodium [Protonix] 40 mg PO DAILY #30 tab 05/21/20 Thiamine HCl 100 mg PO DAILY #30 tab 05/21/20 Atorvastatin Calcium 40 mg PO DAILY 06/16/20 Insulin Aspart [Insulin Aspart Flexpen] 10 unit SC TIDCM 06/16/20 Insulin Degludec [Tresiba Flextouch U-100] 28 unit SC DAILY 06/16/20 Tamsulosin HCl [Flomax] 0.4 mg PO DAILY 06/16/20 Acetaminophen [Tylenol Tablet] 650 mg PO Q6H PRN PRN tab 06/20/20 Primary Care Physician: Care Physician,No Primary [NON-STAFF] - Please follow up with your Primary Care Physician in: within 2 weeks Disposition: Home Minutes spent on discharge:: 45 Patient Condition:: Stable Medical Necessity - Tobacco Use Smoking Status: Current every day smoker Tobacco Use: Cigarettes Meaningful Use Info Meaningful Use Diagnoses (Choose all that apply): None applicable Inpatient E&M: [id number] [facility]
--- NOTE | 2020-06-21 15:46 | CASEMGMT ---
RN CM Discharge Follow-up Phone Call: JERE: 13 Strata: 3 Call Date: 06/21/20 Discharge Date: 06/21/20 Time of Call: 1548 Duration: 1 min Admitting Diagnosis: DKA, ОЛЕГ, NV, Alcohol withdrawal RN DRAIELA attempted to complete follow-up phone call after recent hospitalization. No answer, voice message left with return contact information.
== END 2020-06-20 11:17 | disposition home or self-care (01) | DRG 420 ==
LOC: ED 14:17 → PCU 15:51 → ICU 20:13 → MS3 06-17 20:10
PROVIDERS: Emergency Medicine; Family Medicine; Admitting Provider Student in an Organized Health Care Education/Training Program; Emergency Provider Emergency Medicine; Visit Provider Internal Medicine
DX: E10.10 Type 1 diabetes mellitus with ketoacidosis without coma (principal); N17.9 Acute kidney failure, unspecified; E87.6 Hypokalemia; E87.5 Hyperkalemia; E86.0 Dehydration; E78.5 Hyperlipidemia, unspecified; K74.60 Unspecified cirrhosis of liver; K86.1 Other chronic pancreatitis; K86.3 Pseudocyst of pancreas; K21.9 Gastro-esophageal reflux disease without esophagitis; F10.139 Alcohol abuse with withdrawal, unspecified; Y90.0 Blood alcohol level of less than 20 mg/100 ml; F17.210 Nicotine dependence, cigarettes, uncomplicated; Z79.4 Long term (current) use of insulin; Z79.899 Other long term (current) drug therapy
CPT/HCPCS: 36415; 80048; 80053; 80307; 80320; 81001; 82009; 82962; 83605; 83690; 83735; 83930; 84100; 84484; 85025; 99285; 99406; J7030; J7040; J7050; A4216; G0480; J0610; J2405; J3490; J7799

== ENCOUNTER → 2020-10-12 11:13 | Outpatient (CLI) | payer MEDICAID, SELFPAY ==
[2020-10-04 14:24] VITALS: BMI 29.7
[2020-10-12 12:22] LABS: Absolute Lymphocyte Count 1.57 X10^3/uL (0.83-4.51); Absolute Neutrophil Count 4.8 X10^3/uL (2.0-7.7); Basophil# 0.07 X10^3/uL; Basophil% 0.9 % (0-1); Eosinophil# 0.33 X10^3/uL; Eosinophils% 4.5 % (0-5); Hematocrit 37.7 % (40-54); Hemoglobin 11.9 g/dL (13.0-16.5); Lymphocyte # 1.57 X10^3/ul (4.0); Lymphocyte % 21.2 % (19-41); Mean Corp Hgb Conc 31.6 g/dL (32-36); Mean Corpuscular Hgb 29.8 pg (27.0-32.0); Mean Corpuscular Volume 94.3 fL (80-94); Mean Platelet Vol. 11.1 fl (6.2-12.0); Monocyte# 0.65 X10^3/uL; Monocyte% 8.8 % (0-10); NRBC Flagged by Analyzer 0 % (0-5); Neutrophil # 4.75 X10^3/uL (2.7-7.7); Neutrophil % 64.3 % (47-70); Platelet Count 285 K/mm3 (150-450); RBC Distribution Width CV 12.8 % (11.6-14.6); RBC Distribution Width SD 44.5 fl (35.1-43.9); White Blood Count 7.4 K/mm3 (4.4-11.0)
[2020-10-12 13:30] LABS: ALB/GLOB Ratio 0.8 RATIO (0.9-2.4); AST(SGOT) 27 U/L (15-37); Alanine Aminotransfer ALT/SGPT 27 U/L (16-61); Albumin, Serum 3.2 g/dL (3.2-5.0); Alkaline Phosphatase 53 U/L (45-117); Anion Gap 2 (5-15); BUN 34 mg/dL (7-18); Chloride 110 mmol/L (98-107); Creatinine, Serum 2.13 mg/dL (0.70-1.30); EST Glomerular Filtration Rate 36 mL/min (>60); Est Glom Filt Rate - Afr Amer 44 mL/min (>60); Glucose 223 mg/dL (74-106); Lipase 82 U/L (73-393); Potassium 6.5 mmol/L (3.5-5.1); Protein, Total 7.2 g/dL (6.4-8.2); Sodium Level 137 mmol/L (136-145)
[2020-10-18 14:09] LABS: Endomysial Antibody IgA Negative (Negative); Immunoglobulin A 285 mg/dL (90-386); Testosterone, Free 15.34 ng/dL (5.00-21.00)
[2020-10-18 15:35] LABS: Testosterone, % Free 3.23 % (1.50-4.20); Testosterone, Total 475 ng/dL (264-916); t-Transglutaminase IgA <2 U/mL (0-3)
== END ==
DX: R19.7 Diarrhea, unspecified (principal); K86.1 Other chronic pancreatitis; E11.40 Type 2 diabetes mellitus with diabetic neuropathy, unspecified
CPT/HCPCS: 36415; 80053; 82784; 83516; 83690; 84402; 84403; 85025; 86255

== ENCOUNTER → 2020-10-13 10:02 | Outpatient (CLI) | payer MEDICAID, SELFPAY ==
[2020-10-04 14:24] VITALS: BMI 29.7
[2020-10-13 12:08] LABS: Potassium 6.3 mmol/L (3.5-5.1)
== END ==
DX: E87.0 Hyperosmolality and hypernatremia (principal)
CPT/HCPCS: 36415; 84132

== ENCOUNTER 2020-10-13 14:12 | Emergency (ER) | payer MEDICAID, SELFPAY ==
[2020-10-04 14:24] VITALS: BMI 29.7
[2020-10-13 14:13] VITALS: BP 143/120; PULSE 80; RESP 18; TEMP 36.9; O2SAT 98; BMI 30.6
[2020-10-13 14:46] LABS: Anion Gap 3 (5-15); BUN 35 mg/dL (7-18); BUN/Creat Ratio 18.2 RATIO (10-20); Calcium,Total 8.5 mg/dL (8.5-10.1); Chloride 107 mmol/L (98-107); Creatinine, Serum 1.92 mg/dL (0.70-1.30); EST Glomerular Filtration Rate 41 mL/min (>60); Est Glom Filt Rate - Afr Amer 49 mL/min (>60); Estimated Creatinine Clearance 52.29 ml/min; Glucose 292 mg/dL (74-106); Potassium 5.4 mmol/L (3.5-5.1); Sodium Level 136 mmol/L (136-145)
--- NOTE | 2020-10-13 15:48 | ED.VISSUMM ---
- ER Visit Summary Date of Service: 10/13/20 Chief Complaint: Sent in for high potassium. History of Present Illness: The patient is a 45 M 3 of insulin-dependent diabetes which is poorly controlled renal insufficiency. Patient's had diarrhea for the last week which is not uncommon for him. Has been using Imodium. He had his potassium checked as an outpatient which is elevated was checked the second time was elevated and was sent to the emergency department. He denies any fever or chills. He denies any muscle spasms. Today states he has been drinking a lot of water and Gatorade. Physical Examination: Middle-aged male no acute distress vital signs stable initial blood pressure elevated 143/120. He is in no distress. HEENT exam unremarkable. Moist with members. Neck nontender no lymphadenopathy. Lungs clear to auscultation bilaterally. Heart regular rhythm no murmur. Abdomen soft nontender normal bowel sounds no peritoneal signs. Patient moving all 4 extremities. Neurovascular intact. No edema. Calves nontender. Neurologically is awake alert with no focal motor or sensory deficits. Test Results: Nursing had already ordered a chemistry panel which showed a potassium of 5.4. Actually down from the patient's prior 6.3. BUN of 35 creatinine 1.2 exactly his baseline renal insufficiency his last creatinine was 2.13. His glucose is elevated to 92 is a known diabetic Emergency Department Course and Treatment: Treated with a liter normal saline. He does not need to be admitted. He will be discharged home. Follow-up next week to have his potassium rechecked. Treatment Plan: Drink plenty of water. Be careful with potassium rich foods. Have his electrolytes rechecked next week to check his kidney function and potassium level. Return if worse. Disposition: dc Impression: Diarrhea Acute hyperkalemia History of renal insufficiency History of poorly controlled insulin-dependent diabetes This note was generated with [employer] dictation software. It may contain incorrect words, spelling, and punctuation that were not noted in review of the chart prior to signing ED Disposition - Plan for ED Patient: [facility] -
--- NOTE | 2020-10-13 15:52 | DCINST.ED_ITS ---
ED Disposition - Plan for ED Patient: Disposition: Home or Assisted Living Instructions: ED Diabetes- Overview, ED Hyperkalemia Referrals: [facility],Alejandra Hi [Primary Care Provider] - 1 Week Additional Instructions: She is drinking plenty of water. Continue the Imodium for the diarrhea. Next week have your kidney function and potassium rechecked by your primary care provider. Return if feeling worse. Avoid potassium rich foods over the next several days which is fruits, vegetables and potatoes.
[2020-10-13] MEDS: 0.9% Normal Saline 1,000 ML 999 ML IV (15:54)
[2020-10-13 17:55] VITALS: BP 152/97; PULSE 72; RESP 16; O2SAT 100
== END 2020-10-13 17:56 | disposition home or self-care (01) ==
PROVIDERS: Emergency Provider Emergency Medicine
DX: R19.7 Diarrhea, unspecified (principal); E87.5 Hyperkalemia
CPT/HCPCS: 36415; 80048; 84132; 99283; J7030; A4216

== ENCOUNTER → 2020-10-19 | Outpatient (CLI) | payer MEDICAID, SELFPAY ==
[2020-10-04 14:24] VITALS: BMI 29.7
[2020-10-13 14:13] VITALS: BMI 30.6
[2020-10-21 05:18] LABS: Fats, Neutral Normal (.); Fats, Total Increased (.)
== END | disposition home or self-care (01) ==
LOC: LAB 09:05 → LABSPEC 09:05
DX: R19.7 Diarrhea, unspecified (principal)
CPT/HCPCS: 82705; 87506

== ENCOUNTER → 2020-10-24 09:57 | Outpatient (CLI) | payer MEDICAID, SELFPAY ==
[2020-10-13 14:13] VITALS: BMI 30.6
[2020-10-24 10:54] LABS: Anion Gap 2 (5-15); BUN 31 mg/dL (7-18); BUN/Creat Ratio 16.7 RATIO (10-20); Chloride 106 mmol/L (98-107); Creatinine, Serum 1.86 mg/dL (0.70-1.30); EST Glomerular Filtration Rate 42 mL/min (>60); Est Glom Filt Rate - Afr Amer 51 mL/min (>60); Glucose 188 mg/dL (74-106); Potassium 5.4 mmol/L (3.5-5.1); Sodium Level 138 mmol/L (136-145)
== END ==
DX: E87.5 Hyperkalemia (principal); N28.9 Disorder of kidney and ureter, unspecified
CPT/HCPCS: 36415; 80048

== ENCOUNTER → 2020-11-02 10:37 | Outpatient (CLI) | payer MEDICAID, SELFPAY ==
[2020-10-13 14:13] VITALS: BMI 30.6
[2020-11-02 12:20] LABS: Potassium 5.1 mmol/L (3.5-5.1)
[2020-11-04 15:28] LABS: Vitamin D 1,25-Dihydroxy 26.3 pg/mL (19.9-79.3)
== END ==
PROVIDERS: Referring Provider Nurse Practitioner Adult Health; Visit Provider Nurse Practitioner Adult Health
DX: E87.5 Hyperkalemia (principal)
CPT/HCPCS: 36415; 82652; 84132

== ENCOUNTER 2020-11-22 12:27 | Emergency (ER) | payer MEDICAID, SELFPAY ==
[2020-11-22 12:27] VITALS: BP 145/96; PULSE 93; RESP 16; TEMP 36.5; O2SAT 99; BMI 30.7
--- NOTE | 2020-11-22 12:42 | CT_ITS ---
STUDY: CT ABDOMEN AND PELVIS WITH CONTRAST REASON FOR EXAM: Male, 45 years old. Abdominal pain. Nausea and vomiting. RADIATION DOSAGE (If Supplied By Facility): CTDIvol = ( 14.68 ) mGy, DLP = ( 1149.87 ) mGycm TECHNIQUE: Transaxial images were obtained from the dome of the diaphragm to the symphysis pubis without oral contrast. IV 100mL Isovue-300 was administered. Sagittal and coronal images were reconstructed. Individualized dose optimization techniques were used for this CT. COMPARISON: Comparison is made with prior study dated 01/20/2018. FINDINGS: The visualized lung bases are unremarkable. Coronary artery calcification. There is decreased attenuation of the liver consistent with steatosis. Normal gallbladder and extrahepatic biliary system. Surgical clips are seen along the lateral superior aspect of the spleen most likely secondary to prior surgical intervention. There is a calcified 1.4 cm x 1.1 cm cystic nodule with rim-like calcification in the region of the tail of the pancreas. This is unchanged.. Normal bilateral adrenal glands. Normal right kidney. Normal left kidney. There is a small hiatal hernia. Normal small intestine. Normal colon. The appendix is visualized and appears normal. There is scattered atherosclerotic calcification of the abdominal aorta, without a demonstrated aneurysm. Normal inferior vena cava. Normal retroperitoneum. Normal urinary bladder. Normal abdominal wall. Disc space narrowing and disc degeneration at the L5-S1 level. 50% loss of height of the T12 vertebrae. CT/Abdomen/Pelvis W IV Cont ONLY IMPRESSION: 1.4 cm x 1.1 cm cystic nodule with a rim-like calcification in the region of the tail of the pancreas. This may represent a pseudocyst with calcification. Status post splenic surgery. Electronically Signed: Mauricio Velasquez MD at 14:30 EDT , Service support ,
--- NOTE | 2020-11-22 12:44 | ED.VIS.GI ---
HPI HPI - GI History of Present Illness Chief Complaint: Nausea/Vomiting Informant: patient Abdominal Pain/Flank Pain Onset: Days (3) Context: Gradual Onset Timing: Continuous Quality: Aching and - (Bloating) Location: Diffuse (But worse over the upper abdomen) Worsened by: Nothing Relieved by: Nothing Nausea/Vomiting/Emesis GI Symptom: Positive for Nausea and Vomiting Onset: Days (3) Diarrhea/Melena/Hematochezia GI Symptom: Negative for Diarrhea, Melena and Hematochezia Associated Symptoms Associated Symptoms: Negative for Dysuria and Hematuria Narrative Narrative: Patient presents with abdominal pain, nausea, and vomiting that is been getting worse over the past 3 days. Patient states this does feel similar to prior episodes of pancreatitis. Patient states the has been drinking over the past 3 to 4 days but stopped approximately 24 hours prior to arrival. Patient admits to some subjective chills. Patient denies any hematemesis or coffee-ground emesis. Patient denies any back pain. [facility] Medical History (Updated 11/22/20 @ 15:[address] Skip Pisano, ) Asthma Diabetes Hernia Neuropathy Type 1 diabetes mellitus Vitamin D deficiency Home Medications albuterol sulfate [ProAir HFA] 2 puff INHALATION Q4H PRN 01/20/18 [History Last Taken 3 Days Ago ~06/13/20] cholecalciferol (vitamin D3) [Vitamin D3] 1,000 unit PO DAILY 01/20/18 [History Last Taken 3 Days Ago ~06/13/20] gabapentin 300 mg PO TID 09/25/18 [History Last Taken 3 Days Ago ~06/13/20] folic acid 1 mg PO DAILY #30 tab 05/21/20 [Rx Last Taken 3 Days Ago ~06/13/20] pantoprazole 40 mg PO DAILY #30 tab 05/21/20 [Rx Last Taken 3 Days Ago ~06/13/20] thiamine HCl (vitamin B1) 100 mg PO DAILY #30 tab 05/21/20 [Rx Last Taken 3 Days Ago ~06/13/20] atorvastatin 40 mg PO DAILY 06/16/20 [History Last Taken 3 Days Ago ~06/13/20] insulin aspart U-100 10 unit SC TIDCM 06/16/20 [History Last Taken 3 Days Ago ~06/13/20] insulin degludec 28 unit SC DAILY 06/16/20 [History Last Taken 3 Days Ago ~06/13/20] tamsulosin 0.4 mg PO DAILY 06/16/20 [History Last Taken 3 Days Ago ~06/13/20] acetaminophen 650 mg PO Q6H PRN PRN tab 06/20/20 [Rx Last Taken Unknown] blood sugar diagnostic #10 ea 10/04/20 [History Last Taken Unknown] blood sugar diagnostic #100 ea 10/04/20 [Rx Last Taken Unknown] blood-glucose meter #1 ea 10/04/20 [Rx Last Taken Unknown] lancets 33 gauge #100 ea 10/04/20 [Rx Last Taken Unknown] pen needle, diabetic 29 gauge x 1/2 #100 ea 10/04/20 [History Last Taken Unknown] ondansetron 4 mg PO Q8H PRN PRN #10 tab 11/22/20 [Rx Last Taken Unknown] Allergy/AdvReac Type Severity Reaction Status Date / Time sulfamethoxazole Allergy Hives Verified 11/22/20 12:29 [From Bactrim] trimethoprim [From Bactrim] Allergy Hives Verified 11/22/20 12:29 Family History Other Diabetes Heart disease Hypertension Surgical History History of herniorrhaphy History of tooth extraction Social History (Updated 11/22/20 @ 12:[address] Skip Pisano, ) Smoking Status: Current every day smoker tobacco type: cigarettes Smoking packs per day: 1 Smoking cigarettes per day: 20.0 alcohol intake: current details: occasional substance use type: does not use ROS ROS ED Constitutional Constitutional ED: Reports chills and subjective; Denies fever(s) ENT ENT ED: Denies rhinorrhea or sore throat Cardiovascular Cardiovascular: Denies chest pain or palpitations Respiratory/Chest Respiratory/Chest: Denies cough or dyspnea Gastrointestinal Gastrointestinal: Reports abdominal pain, nausea and vomiting; Denies diarrhea Genitourinary Genitourinary ED: Denies dysuria or hematuria Musculoskeletal Musculoskeletal: Reports neck pain; Denies back pain Integumentary Denies abscess or rash Neurologic Neurologic: Denies headache(s) or weakness Allergic/Immunologic Allergic/Immunologic ED: Denies mouth swelling or urticaria EXAM Physical Exam Const Vital Signs: 11/22/20 12:27 11/22/20 13:30 11/22/20 14:00 Temperature 97.7 F L 98.8 F 98.3 F Temperature Source Temporal Temporal Temporal Pulse Rate 93 90 86 Respiratory Rate 16 20 H 14 Blood Pressure 145/96 H 186/117 H 148/103 H Blood Pressure Mean 112 140 118 Pulse Ox 99 100 99 Oxygen Delivery Method Room Air Room Air Room Air 11/22/20 14:29 Temperature Temperature Source Pulse Rate 86 Respiratory Rate 14 Blood Pressure 198/103 H Blood Pressure Mean 134 Pulse Ox 99 Oxygen Delivery Method Room Air Positive well nourished and well developed General Appearance ED: well developed HEENT normocephalic and atraumatic Neck supple and no JVD Resp normal respiratory effort and clear to auscultation bilaterally Cardio regular rate and regular rhythm GI non-distended Auscultation: hypoactive bowel sounds Palpation: soft and tender epigastric, LLQ, RLQ, LUQ and RUQ; Negative for guarding Extremity full ROM General Extremety ED: Negative for edema or tenderness General Extremity: Negative for edema Neuro CN's II-XII intact bilaterally, moves all extremities and no sensory deficits noted Sensorium / Orientation: alert, oriented to person, oriented to place and oriented to time Motor Exam: strength 5/5 throughout MDM MDM MDM Narrative Medical decision making narrative: Patient was given IV fluids, morphine, and Zofran here. Patient is feeling better on reevaluation. Patient was advised of his findings. Patient was given a prescription for Zofran. Patient was instructed to start with a liquid diet and then advance to a bland diet and then to a regular diet as he feels better. Patient was instructed to follow-up with his primary care physician in 3 to 5 days. Patient understood and was agreeable with the plan. All questions were answered. Lab Data Attestation: I reviewed the patient's lab results. Labs: Laboratory Results - last 24 hr 11/22/20 11/22/20 12:55 12:55 WBC 16.1 H RBC 4.77 Hgb 14.0 Hct 40.5 MCV 84.9 MCH 29.4 MCHC 34.6 RDW Std Deviation 40.1 RDW Coeff of Andreas 12.9 Plt Count 334 MPV 10.2 Immature Gran % (Auto) 0.400 Neut % (Auto) 89.2 H Lymph % (Auto) 6.8 L [place] % (Auto) 2.9 Eos % (Auto) 0.1 Baso % (Auto) 0.6 Absolute Neuts (auto) 14.3 H Absolute Lymphs (auto) 1.09 Nucleated RBC % 0 Sodium 134 L Potassium 4.4 Chloride 97 L Carbon Dioxide 27.0 Anion Gap 10 BUN 31 H Creatinine 1.87 H Estim Creat Clear Calc 53.69 Est GFR (MDRD) Af Amer 51 L Est GFR (MDRD) Non-Af 42 L BUN/Creatinine Ratio 16.6 Glucose 121 H Calcium 9.7 Total Bilirubin 0.80 AST 49 H ALT 44 Alkaline Phosphatase 62 Total Protein 7.9 Albumin 3.5 Globulin 4.4 H Albumin/Globulin Ratio 0.8 L Lipase 37 L Radiography Diagnostic Testing: Radiology Impression Abdomen/Pelvis CT 11/22/20 12:42 IMPRESSION: 1.4 cm x 1.1 cm cystic nodule with a rim-like calcification in the region of the tail of the pancreas. This may represent a pseudocyst with calcification. Status post splenic surgery. Electronically Signed: Mauricio Velasquez MD at 14:30 EDT , Service support , Discharge Plan Triage Chief Complaint: Nausea/Vomiting ED Provider: Skip Pisano Dx/Rx/DC Orders Clinical Impression: Abdominal pain Instructions: ED Pain, Acute, Uncertain Cause Prescriptions: New ondansetron [ondansetron] 4 MG tablet 4 mg PO Q8H PRN PRN (Reason: Nausea) Qty: 10 RF: 0 No Action (DME) blood sugar diagnostic Strip See Rx Instructions strip .ROUTE .MEDSUPPLY Qty: 10 RF: 0 (DME) pen needle, diabetic 29 gauge x 1/2 needle See Rx Instructions ea .ROUTE .MEDSUPPLY Qty: 100 RF: 0 (DME) blood-glucose meter [OneTouch Verio Flex meter] Misc See Rx Instructions .ROUTE .MEDSUPPLY Qty: 1 RF: 0 (DME) OneTouch Verio test strips Strip See Rx Instructions .ROUTE .MEDSUPPLY Qty: 100 RF: 12 (DME) lancets [OneTouch Delica Plus Lancet] 33 gauge misc See Rx Instructions .ROUTE .MEDSUPPLY Qty: 100 RF: 8 albuterol sulfate [ProAir HFA] 1 PUFF inhaler 2 puff inhalation Q4H PRN (Reason: Shortness Of Breath) RF: 0 cholecalciferol (vitamin D3) [Vitamin D3] 1,000 UNIT tablet 1,000 unit PO DAILY RF: 0 gabapentin 300 capsule 300 mg PO TID RF: 0 pantoprazole 40 MG tablet 40 mg PO DAILY Qty: 30 RF: 0 thiamine HCl (vitamin B1) 100 MG tablet 100 mg PO DAILY Qty: 30 RF: 0 folic acid 1 MG tablet 1 mg PO DAILY Qty: 30 RF: 0 atorvastatin 40 MG tablet 40 mg PO DAILY RF: 0 tamsulosin 0.4 MG capsule 0.4 mg PO DAILY RF: 0 insulin aspart U-100 100 UNIT/ML insulin pen 10 unit SC TIDCM RF: 0 insulin degludec 100 UNIT/ML insulin pen 28 unit SC DAILY RF: 0 acetaminophen 325 MG tablet 650 mg PO Q6H PRN PRN (Reason: Pain Score 1-10/Temp > 100.7 F) RF: 0 Primary Care Provider: [facility] Alejandra Cates Referrals: [facility] Alejandra Cates [Primary Care Provider] - 3-5 Days Disposition Patient Disposition: Home, self care
[2020-11-22 13:12] LABS: Absolute Lymphocyte Count 1.09 X10^3/uL (0.83-4.51); Absolute Neutrophil Count 14.3 X10^3/uL (2.0-7.7); Basophil# 0.09 X10^3/uL; Basophil% 0.6 % (0-1); Eosinophil# 0.02 X10^3/uL; Eosinophils% 0.1 % (0-5); Hematocrit 40.5 % (40-54); Lymphocyte # 1.09 X10^3/ul (0.83-4.51); Lymphocyte % 6.8 % (19-41); Mean Corp Hgb Conc 34.6 g/dL (32-36); Mean Corpuscular Hgb 29.4 pg (27.0-32.0); Mean Corpuscular Volume 84.9 fL (80-94); Mean Platelet Vol. 10.2 fl (6.2-12.0); Monocyte# 0.46 X10^3/uL; Monocyte% 2.9 % (0-10); NRBC Flagged by Analyzer 0 % (0-5); Neutrophil # 14.32 X10^3/uL (2.7-7.7); Neutrophil % 89.2 % (47-70); Platelet Count 334 K/mm3 (150-450); RBC Distribution Width CV 12.9 % (11.6-14.6); RBC Distribution Width SD 40.1 fl (35.1-43.9); Red Blood Count 4.77 M/mm3 (4.6-6.2); White Blood Count 16.1 K/mm3 (4.4-11.0)
[2020-11-22 13:24] LABS: ALB/GLOB Ratio 0.8 RATIO (0.9-2.4); AST(SGOT) 49 U/L (15-37); Alanine Aminotransfer ALT/SGPT 44 U/L (16-61); Albumin, Serum 3.5 g/dL (3.2-5.0); Alkaline Phosphatase 62 U/L (45-117); Anion Gap 10 (5-15); BUN 31 mg/dL (7-18); BUN/Creat Ratio 16.6 RATIO (10-20); Calcium,Total 9.7 mg/dL (8.5-10.1); Chloride 97 mmol/L (98-107); Creatinine, Serum 1.87 mg/dL (0.70-1.30); EST Glomerular Filtration Rate 42 mL/min (>60); Est Glom Filt Rate - Afr Amer 51 mL/min (>60); Estimated Creatinine Clearance 53.69 ml/min; Globulin 4.4 g/dL (2.2-4.2); Glucose 121 mg/dL (74-106); Lipase 37 U/L (73-393); Potassium 4.4 mmol/L (3.5-5.1); Protein, Total 7.9 g/dL (6.4-8.2); Sodium Level 134 mmol/L (136-145)
[2020-11-22] MEDS: 0.9% Normal Saline 1,000 ML 1000 ML IV (13:29)
[2020-11-22] MEDS: Morphine 4 MG/ML Syringe IV (13:29)
[2020-11-22] MEDS: Ondansetron 4 MG/2 ML Vial IV (13:29)
[2020-11-22 13:30] VITALS: BP 186/117; PULSE 90; RESP 20; TEMP 37.1; O2SAT 100
[2020-11-22 14:00] VITALS: BP 148/103; PULSE 86; RESP 14; TEMP 36.8; O2SAT 99
[2020-11-22 14:29] VITALS: BP 198/103; PULSE 86; RESP 14; O2SAT 99
[2020-11-22 15:35] VITALS: BP 197/106; PULSE 87; RESP 16; O2SAT 98
== END 2020-11-22 15:36 | disposition home or self-care (01) ==
PROVIDERS: Emergency Provider Emergency Medicine
DX: R10.13 Epigastric pain (principal); R10.12 Left upper quadrant pain; R10.11 Right upper quadrant pain; R10.32 Left lower quadrant pain; R10.31 Right lower quadrant pain; R11.2 Nausea with vomiting, unspecified; E10.40 Type 1 diabetes mellitus with diabetic neuropathy, unspecified; E55.9 Vitamin D deficiency, unspecified; J45.909 Unspecified asthma, uncomplicated; F17.210 Nicotine dependence, cigarettes, uncomplicated; Z79.4 Long term (current) use of insulin; Z79.899 Other long term (current) drug therapy
CPT/HCPCS: 74177; 80053; 83690; 85025; 96361; 96374; 96375; 99283; J7030; Q9967; J2405

== ENCOUNTER → 2021-02-28 08:13 | Outpatient (CLI) | payer MEDICAID, SELFPAY ==
--- NOTE | 2021-02-28 08:31 | RAD_ITS ---
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 This was noted on the previous chest x-ray and is unchanged. The glenohumeral articulation appears to be normal and the acromioclavicular joint is normal. There is significant movement and subluxation noted of the distal diaphysis in relationship to the left humeral head seen at the site of the nonunion fracture. 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 Electronically Signed: Sergio Jean Baptiste DO at 8:33 EDT Tel , Service support ,
[2021-02-28 10:23] LABS: ALB/GLOB Ratio 0.8 RATIO (0.9-2.4); AST(SGOT) 24 U/L (15-37); Alanine Aminotransfer ALT/SGPT 30 U/L (16-61); Alkaline Phosphatase 43 U/L (45-117); BUN 29 mg/dL (7-18); BUN/Creat Ratio 14.9 RATIO (10-20); Calcium,Total 8.4 mg/dL (8.5-10.1); Chloride 103 mmol/L (98-107); Cholesterol 164 mg/dL (200); Creatinine, Serum 1.94 mg/dL (0.70-1.30); EST Glomerular Filtration Rate 40 mL/min (>60); Est Glom Filt Rate - Afr Amer 49 mL/min (>60); Globulin 3.8 g/dL (2.2-4.2); Glucose 196 mg/dL (74-106); Potassium 4.2 mmol/L (3.5-5.1); Protein, Total 6.8 g/dL (6.4-8.2); Sodium Level 138 mmol/L (136-145); Triglycerides 147 mg/dL
[2021-02-28 10:24] LABS: Anion Gap 7 (5-15); High Density Lipoprotein 45 mg/dL; Very Low Density Lipoprotein 29 mg/dL (5-40)
== END ==
DX: E10.40 Type 1 diabetes mellitus with diabetic neuropathy, unspecified (principal); M25.512 Pain in left shoulder
CPT/HCPCS: 36415; 73030; 80053; 80061; 82652

== ENCOUNTER 2021-03-19 06:36 | Emergency (ER) | payer MEDICAID, SELFPAY ==
[2021-03-19 06:36] VITALS: BP 165/134; PULSE 93; RESP 15; TEMP 37.1; O2SAT 98; BMI 30.7
--- NOTE | 2021-03-19 07:04 | EDS_ITS ---
HPI History of Present Illness Chief Complaint: Nausea/Vomiting Informant: patient Onset/Context/Timing Onset: Yesterday Context: Gradual Onset Current Severity: Moderate Maximum Severity: Moderate Narrative Narrative: Patient presents secondary to nausea and vomiting. Symptom onset was yesterday after drinking a lot of vodka. Patient denies specific abdominal pain but does report feeling queasy. He reports having some chills but no fever. No cough. He has had some diarrhea. Patient is diabetic and states his blood sugars have actually been under pretty good control recently. [facility] Medical History (Updated 03/19/21 @ 12:[address] Natalie Barger MD) Asthma Hernia Neuropathy Type 1 diabetes mellitus Vitamin D deficiency Home Medications albuterol sulfate [ProAir HFA] 2 puff INHALATION Q4H PRN 01/20/18 [History Last Taken 3 Days Ago ~06/13/20] gabapentin 300 mg PO TID 09/25/18 [History Last Taken 3 Days Ago ~06/13/20] folic acid 1 mg PO DAILY #30 tab 05/21/20 [Rx Last Taken 3 Days Ago ~06/13/20] thiamine HCl (vitamin B1) 100 mg PO DAILY #30 tab 05/21/20 [Rx Last Taken 3 Days Ago ~06/13/20] atorvastatin 40 mg PO DAILY 06/16/20 [History Last Taken 3 Days Ago ~06/13/20] tamsulosin 0.4 mg PO DAILY 06/16/20 [History Last Taken 3 Days Ago ~06/13/20] blood sugar diagnostic #10 ea 10/04/20 [History Last Taken Unknown] blood sugar diagnostic #100 ea 10/04/20 [Rx Last Taken Unknown] blood-glucose meter #1 ea 10/04/20 [Rx Last Taken Unknown] lancets 33 gauge #100 ea 10/04/20 [Rx Last Taken Unknown] pen needle, diabetic 29 gauge x 1/2 #100 ea 10/04/20 [History Last Taken Unknown] ondansetron 4 mg PO Q8H PRN PRN #10 tab 11/22/20 [Rx Last Taken Unknown] insulin aspart U-100 100 unit/mL (3 mL) subcutaneous pen 10 unit SC TIDCM #15 ml 12/01/20 [Rx Last Taken Unknown] insulin degludec 100 unit/mL (3 mL) subcutaneous pen 28 unit SC DAILY #30 ml 12/01/20 [Rx Last Taken Unknown] ergocalciferol (vitamin D2) 50,000 unit PO QWEEK 03/19/21 [History Last Taken Unknown] metoclopramide HCl [Reglan] 10 mg PO Q6H PRN #10 tab 03/19/21 [Rx Last Taken Unknown] ondansetron 4 mg PO Q8H PRN #10 tab 03/19/21 [Rx Last Taken Unknown] Allergy/AdvReac Type Severity Reaction Status Date / Time sulfamethoxazole Allergy Hives Verified 03/19/21 06:45 [From Bactrim] trimethoprim [From Bactrim] Allergy Hives Verified 03/19/21 06:45 Family History Other Diabetes Heart disease Hypertension Surgical History History of herniorrhaphy History of tooth extraction Social History Smoking Status: Current every day smoker tobacco type: cigarettes alcohol intake: current details: occasional substance use type: does not use ROS ROS ED Constitutional Constitutional ED: Reports chills; Denies fever(s) Eyes Eyes: Denies change in vision ENT ENT ED: Denies sore throat Cardiovascular Cardiovascular: Denies chest pain Respiratory/Chest Respiratory/Chest: Denies cough or dyspnea Gastrointestinal Gastrointestinal: Reports diarrhea, nausea and vomiting; Denies abdominal pain Genitourinary Genitourinary ED: Denies dysuria Musculoskeletal Musculoskeletal: Denies back pain Integumentary Denies rash Neurologic Neurologic: Denies headache(s) or weakness Allergic/Immunologic Allergic/Immunologic ED: Denies urticaria EXAM Physical Exam Const Vital Signs: 03/19/21 06:36 03/19/21 07:06 03/19/21 10:03 Temperature 98.8 F Temperature Source Oral Pulse Rate 93 94 97 Respiratory Rate 15 20 H 23 H Blood Pressure 165/134 H 205/98 H 175/94 H Blood Pressure Mean 144 133 121 Pulse Ox 98 Oxygen Delivery Method Room Air Positive well nourished and well developed General Appearance ED: well developed HEENT Reports normocephalic and head/scalp atraumatic Eyes PERRL and EOMs intact bilaterally Neck supple Chest Wall inspection of chest normal and palpation of chest normal Resp normal respiratory effort and clear to auscultation bilaterally Cardio regular rate and regular rhythm GI non-tender Auscultation: hypoactive bowel sounds Palpation: soft Extremity normal to inspection Neuro oriented x3 and no sensory deficits noted Sensorium / Orientation: alert Motor Exam: strength 5/5 throughout Psych mental status grossly normal Skin no rashes or lesions noted MDM MDM MDM Narrative Medical decision making narrative: Patient is initially given Zofran followed by a dose of Reglan and Benadryl for nausea. IV fluids were given. Lab work obtained. Lab Data Attestation: I reviewed the patient's lab results. Labs: Laboratory Results - last 24 hr 03/19/21 03/19/21 03/19/21 07:20 07:20 07:20 WBC 19.5 H RBC 4.01 L Hgb 11.9 L Hct 36.3 L MCV 90.5 MCH 29.7 MCHC 32.8 RDW Std Deviation 46.3 H RDW Coeff of Andreas 13.9 Plt Count 272 MPV 10.6 Immature Gran % (Auto) 0.800 Neut % (Auto) 89.0 H Lymph % (Auto) 4.3 L [place] % (Auto) 5.5 Eos % (Auto) 0.0 Baso % (Auto) 0.4 Absolute Neuts (auto) 17.4 H Absolute Lymphs (auto) 0.84 Nucleated RBC % 0 Sodium 131 L Potassium 5.6 H Chloride 94 L Carbon Dioxide 20.0 L Anion Gap 17 H BUN 59 H Creatinine 2.16 H Estim Creat Clear Calc 46.48 Est GFR (MDRD) Af Amer 43 L Est GFR (MDRD) Non-Af 35 L BUN/Creatinine Ratio 27.3 H Glucose 428 H Calcium 7.7 L Total Bilirubin 1.20 H Direct Bilirubin 0.29 AST 156 H ALT 68 H Alkaline Phosphatase 50 Total Protein 6.9 Albumin 3.1 L Globulin 3.8 Lipase 42 L Acetone Level SMALL H 03/19/21 03/19/21 11:24 11:24 WBC RBC Hgb Hct MCV MCH MCHC RDW Std Deviation RDW Coeff of Andreas Plt Count MPV Immature Gran % (Auto) Neut % (Auto) Lymph % (Auto) [place] % (Auto) Eos % (Auto) Baso % (Auto) Absolute Neuts (auto) Absolute Lymphs (auto) Nucleated RBC % Sodium 137 Potassium 4.7 Chloride 103 Carbon Dioxide 23.0 Anion Gap 11 BUN 56 H Creatinine 2.08 H Estim Creat Clear Calc 48.27 Est GFR (MDRD) Af Amer 45 L Est GFR (MDRD) Non-Af 37 L BUN/Creatinine Ratio 26.9 H Glucose 264 H Calcium 7.3 L Total Bilirubin Direct Bilirubin AST ALT Alkaline Phosphatase Total Protein Albumin Globulin Lipase Acetone Level SMALL H Treatment and Re-Evaluation Comments:: Patient's initial blood work indicated blood sugar of 428 with anion gap of 17. Patient was given IV fluid bolus here along with subcu insulin. Repeat BMP reveals anion gap to be closed at 11 and blood sugar to be 264. On repeat evaluation patient does report feeling much improved. He will be given prescription for antiemetics at home and advised to follow bland diet. Return instructions provided. Patient's blood pressure is noted to be elevated here. On review of prior records it appears the patient's blood pressures have been running high for quite some time. I did discuss this with him and asked him to follow-up with his primary care physician as he may need to be started on regular medication for this. Discharge Plan Triage Chief Complaint: Nausea/Vomiting ED Provider: Natalie Barger Dx/Rx/DC Orders Clinical Impression: Vomiting, Hypertension, Hyperglycemia Instructions: ED Diabetic Hyperglycemia, ED Hypertension, To Be Confirmed, ED Vomiting (Adult) Prescriptions: New ondansetron 4 mg tablet,disintegrating 4 mg PO Q8H PRN (Reason: nausea and vomiting) Qty: 10 RF: 0 metoclopramide HCl [Reglan] 10 mg tablet 10 mg PO Q6H PRN (Reason: nausea and vomiting) Qty: 10 RF: 0 No Action (DME) blood sugar diagnostic Strip See Rx Instructions strip .ROUTE .MEDSUPPLY Qty: 10 RF: 0 (DME) pen needle, diabetic 29 gauge x 1/2 needle See Rx Instructions ea .ROUTE .MEDSUPPLY Qty: 100 RF: 0 (DME) blood-glucose meter [OneTouch Verio Flex meter] Mis See Rx Instructions .ROUTE .MEDSUPPLY Qty: 1 RF: 0 (DME) OneTouch Verio test strips Strip See Rx Instructions .ROUTE .MEDSUPPLY Qty: 100 RF: 12 (DME) lancets [OneTouch Delica Plus Lancet] 33 gauge misc See Rx Instructions .ROUTE .MEDSUPPLY Qty: 100 RF: 8 albuterol sulfate [ProAir HFA] 1 PUFF inhaler 2 puff inhalation Q4H PRN (Reason: Shortness Of Breath) RF: 0 gabapentin 300 capsule 300 mg PO TID RF: 0 thiamine HCl (vitamin B1) 100 MG tablet 100 mg PO DAILY Qty: 30 RF: 0 folic acid 1 MG tablet 1 mg PO DAILY Qty: 30 RF: 0 atorvastatin 40 MG tablet 40 mg PO DAILY RF: 0 tamsulosin 0.4 MG capsule 0.4 mg PO DAILY RF: 0 ondansetron [ondansetron] 4 MG tablet 4 mg PO Q8H PRN PRN (Reason: Nausea) Qty: 10 RF: 0 ergocalciferol (vitamin D2) 1,250 mcg (50,000 unit) capsule 50,000 unit PO QWEEK RF: 0 insulin degludec 100 unit/mL (3 mL) insulin pen 28 unit SC DAILY Qty: 30 RF: 1 insulin aspart U-100 100 unit/mL (3 mL) insulin pen 10 unit SC TIDCM Qty: 15 RF: 0 Primary Care [facility] Disposition Disposition: Home, Self Care
[2021-03-19 07:06] VITALS: BP 205/98; PULSE 94; RESP 20
[2021-03-19] MEDS: Dicyclomine 20 MG/2 ML Vial IM (07:16)
[2021-03-19] MEDS: 0.9% Normal Saline 1,000 ML 1000 ML IV (07:16)
[2021-03-19] MEDS: Ondansetron 4 MG/2 ML Vial IV (07:16)
[2021-03-19 07:34] LABS: Absolute Lymphocyte Count 0.84 X10^3/uL (0.83-4.51); Absolute Neutrophil Count 17.4 X10^3/uL (2.0-7.7); Basophil# 0.08 X10^3/uL; Basophil% 0.4 % (0-1); Hematocrit 36.3 % (40-54); Hemoglobin 11.9 g/dL (13.0-16.5); Lymphocyte # 0.84 X10^3/ul (0.83-4.51); Lymphocyte % 4.3 % (19-41); Mean Corp Hgb Conc 32.8 g/dL (32-36); Mean Corpuscular Hgb 29.7 pg (27.0-32.0); Mean Corpuscular Volume 90.5 fL (80-94); Mean Platelet Vol. 10.6 fl (6.2-12.0); Monocyte# 1.08 X10^3/uL; Monocyte% 5.5 % (0-10); NRBC Flagged by Analyzer 0 % (0-5); Neutrophil # 17.38 X10^3/uL (2.7-7.7); Platelet Count 272 K/mm3 (150-450); RBC Distribution Width CV 13.9 % (11.6-14.6); RBC Distribution Width SD 46.3 fl (35.1-43.9); Red Blood Count 4.01 M/mm3 (4.6-6.2); White Blood Count 19.5 K/mm3 (4.4-11.0)
[2021-03-19 07:46] LABS: AST(SGOT) 156 U/L (15-37); Alanine Aminotransfer ALT/SGPT 68 U/L (16-61); Albumin, Serum 3.1 g/dL (3.2-5.0); Alkaline Phosphatase 50 U/L (45-117); Anion Gap 17 (5-15); BUN 59 mg/dL (7-18); BUN/Creat Ratio 27.3 RATIO (10-20); Bilirubin, Direct 0.29 mg/dL (0.00-0.30); Calcium,Total 7.7 mg/dL (8.5-10.1); Chloride 94 mmol/L (98-107); Creatinine, Serum 2.16 mg/dL (0.70-1.30); EST Glomerular Filtration Rate 35 mL/min (>60); Est Glom Filt Rate - Afr Amer 43 mL/min (>60); Estimated Creatinine Clearance 46.48 ml/min; Globulin 3.8 g/dL (2.2-4.2); Glucose 428 mg/dL (74-106); Lipase 42 U/L (73-393); Potassium 5.6 mmol/L (3.5-5.1); Protein, Total 6.9 g/dL (6.4-8.2); Sodium Level 131 mmol/L (136-145)
[2021-03-19] MEDS: DiphenhydrAMINE 50 MG/ML Syringe 25 MG IV (08:50)
[2021-03-19] MEDS: 0.9% Normal Saline 1,000 ML 999 ML IV ×2 (08:50→10:50)
[2021-03-19] MEDS: Insulin Lispro 100 UNIT/ML INSULN.PEN 10 UNIT SC (08:50)
[2021-03-19] MEDS: Metoclopramide 10 MG/2 ML Vial IV (08:50)
[2021-03-19 10:03] VITALS: BP 175/94; PULSE 97; RESP 23
[2021-03-19 12:00] LABS: Anion Gap 11 (5-15); BUN 56 mg/dL (7-18); BUN/Creat Ratio 26.9 RATIO (10-20); Calcium,Total 7.3 mg/dL (8.5-10.1); Chloride 103 mmol/L (98-107); Creatinine, Serum 2.08 mg/dL (0.70-1.30); EST Glomerular Filtration Rate 37 mL/min (>60); Est Glom Filt Rate - Afr Amer 45 mL/min (>60); Estimated Creatinine Clearance 48.27 ml/min; Glucose 264 mg/dL (74-106); Potassium 4.7 mmol/L (3.5-5.1); Sodium Level 137 mmol/L (136-145)
[2021-03-19 12:39] VITALS: BP 173/93; PULSE 92; RESP 18; O2SAT 99
== END 2021-03-19 12:40 | disposition home or self-care (01) ==
PROVIDERS: Emergency Provider Emergency Medicine
DX: R11.2 Nausea with vomiting, unspecified (principal); I10 Essential (primary) hypertension; E10.65 Type 1 diabetes mellitus with hyperglycemia; E10.40 Type 1 diabetes mellitus with diabetic neuropathy, unspecified; E55.9 Vitamin D deficiency, unspecified; F17.210 Nicotine dependence, cigarettes, uncomplicated; Z79.4 Long term (current) use of insulin; Z79.899 Other long term (current) drug therapy
CPT/HCPCS: 80048; 80076; 82009; 83690; 85025; 96361; 96372; 96374; 96375; 99285; J7030; A4216; J2405

== ENCOUNTER 2021-04-11 08:43 | Emergency (ER) | payer MEDICAID, SELFPAY ==
[2021-04-11 08:46] VITALS: BP 142/100; PULSE 82; RESP 18; TEMP 37; O2SAT 99; BMI 30.7
--- NOTE | 2021-04-11 09:02 | RAD_ITS ---
STUDY: X-RAY - LEFT FOOT CLINICAL: Male, 45 years old. Foot pain TECHNIQUE: 3 view(s) of the foot. COMPARISON: None. FINDINGS: Normal talus, calcaneus, and tarsal bones. Normal visualized subtalar, talonavicular, calcaneocuboid, tarsal and tarsometatarsal articulations. Normal metatarsi. Normal metatarsophalangeal joint of the great toe. Normal tibial and fibular sesamoid bones. Normal interphalangeal joint of the great toe. Normal phalanges of the great toe. Normal second through fifth metatarsophalangeal joints. Normal interphalangeal joints and phalanges of the lesser toes. The soft tissue structures are unremarkable. RAD/Foot min 3 Views IMPRESSION: Normal x-ray examination of the foot. Electronically Signed: Mauricio Velasquez MD at 9:18 EDT , Service support ,
--- NOTE | 2021-04-11 10:15 | ED.VIS.LOWEX ---
HPI History of Present Illness Chief Complaint: Lower Extremity Injury Narrative Narrative: Patient presents with bruising to the left fifth toe. He is unsure how he injured himself. He does not recall an injury. He states that his left fifth toe is tender. He has no lacerations or abrasions. [facility] Medical History Asthma Hernia Neuropathy Type 1 diabetes mellitus Vitamin D deficiency Home Medications albuterol sulfate [ProAir HFA] 2 puff INHALATION Q4H PRN 01/20/18 [History Last Taken 3 Days Ago ~06/13/20] gabapentin 300 mg PO TID 09/25/18 [History Last Taken 3 Days Ago ~06/13/20] folic acid 1 mg PO DAILY #30 tab 05/21/20 [Rx Last Taken 3 Days Ago ~06/13/20] thiamine HCl (vitamin B1) 100 mg PO DAILY #30 tab 05/21/20 [Rx Last Taken 3 Days Ago ~06/13/20] atorvastatin 40 mg PO DAILY 06/16/20 [History Last Taken 3 Days Ago ~06/13/20] tamsulosin 0.4 mg PO DAILY 06/16/20 [History Last Taken 3 Days Ago ~06/13/20] blood sugar diagnostic #10 ea 10/04/20 [History Last Taken Unknown] blood sugar diagnostic #100 ea 10/04/20 [Rx Last Taken Unknown] blood-glucose meter #1 ea 10/04/20 [Rx Last Taken Unknown] lancets 33 gauge #100 ea 10/04/20 [Rx Last Taken Unknown] pen needle, diabetic 29 gauge x 1/2 #100 ea 10/04/20 [History Last Taken Unknown] ondansetron 4 mg PO Q8H PRN PRN #10 tab 11/22/20 [Rx Last Taken Unknown] insulin aspart U-100 100 unit/mL (3 mL) subcutaneous pen 10 unit SC TIDCM #15 ml 12/01/20 [Rx Last Taken Unknown] insulin degludec 100 unit/mL (3 mL) subcutaneous pen 28 unit SC DAILY #30 ml 12/01/20 [Rx Last Taken Unknown] ergocalciferol (vitamin D2) 50,000 unit PO QWEEK 03/19/21 [History Last Taken Unknown] metoclopramide HCl [Reglan] 10 mg PO Q6H PRN #10 tab 03/19/21 [Rx Last Taken Unknown] ondansetron 4 mg PO Q8H PRN #10 tab 03/19/21 [Rx Last Taken Unknown] Allergy/AdvReac Type Severity Reaction Status Date / Time sulfamethoxazole Allergy Hives Verified 04/11/21 08:48 [From Bactrim] trimethoprim [From Bactrim] Allergy Hives Verified 04/11/21 08:48 Family History Other Diabetes Heart disease Hypertension Surgical History History of herniorrhaphy History of tooth extraction Social History Smoking Status: Current every day smoker tobacco type: cigarettes alcohol intake: current details: occasional substance use type: does not use ROS ROS ED Constitutional Constitutional ED: Denies chills or fever(s) Eyes Eyes: Denies blurry vision or diplopia ENT ENT ED: Denies rhinorrhea or sore throat Cardiovascular Cardiovascular: Denies chest pain or palpitations Respiratory/Chest Respiratory/Chest: Denies cough or dyspnea Gastrointestinal Gastrointestinal: Denies abdominal pain, nausea or vomiting Genitourinary Genitourinary ED: Denies dysuria or hematuria Musculoskeletal Musculoskeletal: Reports other Details: Left fifth toe pain Integumentary Reports other Details: Bruising of left fifth toe Neurologic Neurologic: Denies headache(s) or paresthesias EXAM Physical Exam Const Vital Signs: 04/11/21 08:46 Temperature 98.6 F Temperature Source Oral Pulse Rate 82 Respiratory Rate 18 Blood Pressure 142/100 H Blood Pressure Mean 114 Pulse Ox 99 Oxygen Delivery Method Room Air Positive well nourished General Appearance ED: NAD HEENT normocephalic and atraumatic Eyes PERRL Cardio regular rate and regular rhythm Extremity Extremity Narrative: Bruising noted to left fifth toe. No obvious deformity. No numbness or tingling. Left foot neurovascular intact brisk cap refill to all 5 toes. Neuro oriented x3 Sensorium / Orientation: alert Psych mental status grossly normal Skin Skin Narrative: Bruising noted over left fifth toe Rashes: no rashes MDM MDM MDM Narrative Medical decision making narrative: Patient presented with bruising to the left fifth toe. He does not know how he did this. Patient is ambulatory. I obtain imaging of the left foot which on my interpretation shows no acute fracture or subluxation. Patient will be placed in postop shoe. He is counseled to use ice and elevation as well as Tylenol and ibuprofen for pain. Impression: 1. Left fifth toe contusion Radiography Diagnostic Testing: Radiology Impression Foot X-Ray 04/11/21 09:02 IMPRESSION: Normal x-ray examination of the foot. Electronically Signed: Mauricio Velasquez MD at 9:18 EDT , Service support , Discharge Plan Triage Chief Complaint: Lower Extremity Injury ED Provider: Trav Chakraborty Dx/Rx/DC Orders Instructions: ED Contusion, Lower Extremity Prescriptions: No Action (DME) blood sugar diagnostic Strip See Rx Instructions strip .ROUTE .MEDSUPPLY Qty: 10 RF: 0 (DME) pen needle, diabetic 29 gauge x 1/2 needle See Rx Instructions ea .ROUTE .MEDSUPPLY Qty: 100 RF: 0 (DME) blood-glucose meter [OneTouch Verio Flex meter] Misc See Rx Instructions .ROUTE .MEDSUPPLY Qty: 1 RF: 0 (DME) OneTouch Verio test strips Strip See Rx Instructions .ROUTE .MEDSUPPLY Qty: 100 RF: 12 (DME) lancets [OneTouch Delica Plus Lancet] 33 gauge misc See Rx Instructions .ROUTE .MEDSUPPLY Qty: 100 RF: 8 albuterol sulfate [ProAir HFA] 1 PUFF inhaler 2 puff inhalation Q4H PRN (Reason: Shortness Of Breath) RF: 0 gabapentin 300 capsule 300 mg PO TID RF: 0 thiamine HCl (vitamin B1) 100 MG tablet 100 mg PO DAILY Qty: 30 RF: 0 folic acid 1 MG tablet 1 mg PO DAILY Qty: 30 RF: 0 atorvastatin 40 MG tablet 40 mg PO DAILY RF: 0 tamsulosin 0.4 MG capsule 0.4 mg PO DAILY RF: 0 ondansetron [ondansetron] 4 MG tablet 4 mg PO Q8H PRN PRN (Reason: Nausea) Qty: 10 RF: 0 ergocalciferol (vitamin D2) 1,250 mcg (50,000 unit) capsule 50,000 unit PO QWEEK RF: 0 ondansetron 4 mg tablet,disintegrating 4 mg PO Q8H PRN (Reason: nausea and vomiting) Qty: 10 RF: 0 metoclopramide HCl [Reglan] 10 mg tablet 10 mg PO Q6H PRN (Reason: nausea and vomiting) Qty: 10 RF: 0 insulin degludec 100 unit/mL (3 mL) insulin pen 28 unit SC DAILY Qty: 30 RF: 1 insulin aspart U-100 100 unit/mL (3 mL) insulin pen 10 unit SC TIDCM Qty: 15 RF: 0 Primary Care Provider: [facility] Alejandra Cates Referrals: [facility] Alejandra Cates [Primary Care Provider] - Disposition Disposition: Home, Self Care
== END 2021-04-11 10:31 | disposition home or self-care (01) ==
PROVIDERS: Emergency Provider Student in an Organized Health Care Education/Training Program
DX: S90.122A Contusion of left lesser toe(s) without damage to nail, initial encounter (principal); X58.XXXA Exposure to other specified factors, initial encounter; Y93.9 Activity, unspecified; Y92.9 Unspecified place or not applicable; Y99.9 Unspecified external cause status; E10.40 Type 1 diabetes mellitus with diabetic neuropathy, unspecified; E55.9 Vitamin D deficiency, unspecified; F17.210 Nicotine dependence, cigarettes, uncomplicated; Z79.4 Long term (current) use of insulin; Z79.899 Other long term (current) drug therapy
CPT/HCPCS: 73630; 99283

== ENCOUNTER → 2021-06-06 09:08 | Outpatient (CLI) | payer MEDICAID, SELFPAY ==
[2021-06-06 10:03] LABS: Absolute Lymphocyte Count 1.65 X10^3/uL (0.83-4.51); Basophil# 0.06 X10^3/uL; Basophil% 0.7 % (0-1); Eosinophil# 0.13 X10^3/uL; Eosinophils% 1.6 % (0-5); Hematocrit 22.3 % (40-54); Hemoglobin 7.2 g/dL (13.0-16.5); Lymphocyte # 1.65 X10^3/ul (0.83-4.51); Lymphocyte % 20.4 % (19-41); Mean Corp Hgb Conc 32.3 g/dL (32-36); Mean Corpuscular Hgb 31.9 pg (27.0-32.0); Mean Corpuscular Volume 98.7 fL (80-94); Mean Platelet Vol. 9.9 fl (6.2-12.0); Monocyte# 1.22 X10^3/uL; Monocyte% 15.1 % (0-10); NRBC Flagged by Analyzer 0 % (0-5); Neutrophil # 4.95 X10^3/uL (2.7-7.7); Neutrophil % 61.1 % (47-70); Platelet Count 558 K/mm3 (150-450); RBC Distribution Width CV 16.2 % (11.6-14.6); RBC Distribution Width SD 58.1 fl (35.1-43.9); Red Blood Count 2.26 M/mm3 (4.6-6.2); White Blood Count 8.1 K/mm3 (4.4-11.0)
[2021-06-06 10:59] LABS: ALB/GLOB Ratio 0.6 RATIO (0.9-2.4); AST(SGOT) 44 U/L (15-37); Alanine Aminotransfer ALT/SGPT 44 U/L (16-61); Albumin, Serum 2.2 g/dL (3.2-5.0); Alkaline Phosphatase 41 U/L (45-117); Anion Gap 4 (5-15); BUN 18 mg/dL (7-18); BUN/Creat Ratio 11.8 RATIO (10-20); Calcium,Total 8.3 mg/dL (8.5-10.1); Chloride 110 mmol/L (98-107); Cholesterol 136 mg/dL (200); Creatinine, Serum 1.52 mg/dL (0.70-1.30); EST Glomerular Filtration Rate 53 mL/min (>60); Est Glom Filt Rate - Afr Amer 64 mL/min (>60); Globulin 3.5 g/dL (2.2-4.2); Glucose 120 mg/dL (74-106); High Density Lipoprotein 67 mg/dL; Potassium 4.2 mmol/L (3.5-5.1); Protein, Total 5.7 g/dL (6.4-8.2); Sodium Level 142 mmol/L (136-145); Triglycerides 43 mg/dL; Very Low Density Lipoprotein 9 mg/dL (5-40)
== END ==
DX: E10.40 Type 1 diabetes mellitus with diabetic neuropathy, unspecified (principal); D64.9 Anemia, unspecified; E78.2 Mixed hyperlipidemia
CPT/HCPCS: 36415; 80053; 80061; 85025

== ENCOUNTER → 2021-06-12 09:31 | Outpatient (CLI) | payer MEDICAID, SELFPAY ==
[2021-06-12 09:55] LABS: Absolute Lymphocyte Count 1.77 X10^3/uL (0.83-4.51); Absolute Neutrophil Count 4.3 X10^3/uL (2.0-7.7); Basophil% 1.4 % (0-1); Eosinophil# 0.11 X10^3/uL; Eosinophils% 1.6 % (0-5); Hematocrit 22.3 % (40-54); Hemoglobin 6.9 g/dL (13.0-16.5); Lymphocyte # 1.77 X10^3/ul (0.83-4.51); Lymphocyte % 25.2 % (19-41); Mean Corp Hgb Conc 30.9 g/dL (32-36); Mean Corpuscular Hgb 30.5 pg (27.0-32.0); Mean Corpuscular Volume 98.7 fL (80-94); Mean Platelet Vol. 9.4 fl (6.2-12.0); Monocyte# 0.68 X10^3/uL; Monocyte% 9.7 % (0-10); NRBC Flagged by Analyzer 0 % (0-5); Neutrophil % 61.4 % (47-70); Platelet Count 391 K/mm3 (150-450); RBC Distribution Width CV 15.4 % (11.6-14.6); RBC Distribution Width SD 55.3 fl (35.1-43.9); Red Blood Count 2.26 M/mm3 (4.6-6.2)
[2021-06-12 10:20] LABS: BNP,B-Type NATRIURETIC PEPTIDE 1157.3 pg/mL (0-100)
[2021-06-12 10:27] LABS: ALB/GLOB Ratio 0.6 RATIO (0.9-2.4); AST(SGOT) 23 U/L (15-37); Alanine Aminotransfer ALT/SGPT 22 U/L (16-61); Albumin, Serum 2.2 g/dL (3.2-5.0); Alkaline Phosphatase 36 U/L (45-117); Anion Gap 4 (5-15); BUN 28 mg/dL (7-18); BUN/Creat Ratio 16.8 RATIO (10-20); Calcium,Total 8.3 mg/dL (8.5-10.1); Chloride 108 mmol/L (98-107); Creatinine, Serum 1.67 mg/dL (0.70-1.30); EST Glomerular Filtration Rate 48 mL/min (>60); Est Glom Filt Rate - Afr Amer 58 mL/min (>60); Globulin 3.6 g/dL (2.2-4.2); Glucose 65 mg/dL (74-106); Iron 60 ug/dL (65-175); Iron Binding Capacity,Total 278 ug/dL (250-450); Magnesium 2.1 mg/dL (1.6-2.6); Potassium 4.5 mmol/L (3.5-5.1); Protein, Total 5.8 g/dL (6.4-8.2); Sodium Level 139 mmol/L (136-145)
== END ==
PROVIDERS: Referring Provider Nurse Practitioner Adult Health; Visit Provider Nurse Practitioner Adult Health
DX: R60.0 Localized edema (principal); D64.9 Anemia, unspecified; E83.42 Hypomagnesemia; E11.40 Type 2 diabetes mellitus with diabetic neuropathy, unspecified
CPT/HCPCS: 36415; 80053; 83540; 83550; 83735; 83880; 85025

== ENCOUNTER → 2021-06-14 07:54 | Outpatient (CLI) | payer MEDICAID, SELFPAY ==
[2021-06-14] VITALS (7 sets, daily range): BP systolic 133–146; BP diastolic 81–98; PULSE 72–85; RESP 16; TEMP 36.2–36.9; O2SAT 97–100; BMI 33.7
[2021-06-14] MEDS: 0.9% NaCl Peripheral Flush Adult/Peds IV (08:21)
[2021-06-14] MEDS: Acetaminophen 325 MG Tablet 650 MG PO (08:22)
[2021-06-14] MEDS: DiphenhydrAMINE 25 MG Capsule PO (08:22)
== END ==
PROVIDERS: Referring Provider Family Medicine; Visit Provider Family Medicine
DX: D64.9 Anemia, unspecified (principal)
CPT/HCPCS: 36415; 36430; 86850; 86900; 86901; 86920; 86922; J7040; P9016; A4216

== ENCOUNTER → 2022-10-05 | Outpatient (CLI) | payer MEDICAID, SELFPAY ==
--- NOTE | 2022-10-05 14:46 | SP.MBSS_ITS ---
Modified Barium Swallow - Patient Information Study Date: 10/05/22 Study Time: 13:20 Direct Billable Minutes: 118 Total Minutes procedure & reportin Diagnosis: Dysphagia, unspecified (R13.10) Referring Physician: Farooq Arshad Reason for Referral: Objectively assess swallow function, assess risk for aspiration, and determine recommendations for least restrictive diet textures and compensatory strategies to improve safety of swallow. Medical History: Pt is a 47-year-old male with PMH including PNA, cognitive communication deficit, dysphagia, DM type II, HTN, STEMI, and GERD. Pt presented for OP MBSS today to reassess swallow function and aspiration risk. Per pt and mother?s report, the patient experienced cardiac arrest in January. Pt then required intubation, placement of trach. 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 Trach was removed ~3 months ago. He is currently residing at [facility]. Patient is interested in upgrading recommended diet textures, as he is currently on mechanical soft textures / nectar (mildly) thick liquids. Current Diet Ordered: Mechanical soft / [place] Dentition: Upper Dentures - present for study; however, per mother he does not typically wear them Mental Status: Impaired - hx of cognitive-communication deficit Respiratory Status: Oxygenating on Room Air - Penetration-Aspiration Scale Penetration-Aspiration Scale: OBJECTIVE ASSESSMENT OF SWALLOW FUNCTION (QUANTITATIVE ? PER TRIAL): PENETRATION / ASPIRATION SCALE (RIVERA): 1 = does not enter airway 2 = enters airway/above vocal folds/ejected 3 = enters airway/above vocal folds/not ejected 4 = enters airway/contacts vocal folds/ejected 5 = enters airway/contacts vocal folds/not ejected 6 = enters airway/below vocal folds/ejected 7 = enters airway/below vocal folds/not ejected despite effort 8 = enters airway/below vocal folds/no effort VIDEOFLOROSCOPIC SCALE SCORE (RIVERA): Grade I = aspiration of material that has penetrated into the laryngeal vestibule, intact cough reflex Grade II = aspiration < 10 % of the bolus, intact cough reflex Grade III = aspiration of < 10 % of the bolus, reduced cough reflex or aspiration of > 10 % of the bolus, intact cough reflex Grade IV = aspiration of > 10 % of the bolus, reduced cough reflex - Penetration-Aspiration Scale Score Thin Liquid via teaspoon Result: 1= does not enter airway Thin Liquid via teaspoon Trial 2 Result: 1= does not enter airway Thin Liquid via small single sip from cup Result: 1= does not enter airway [place] Thick Liquid via small single sip from cup Result: 1= does not enter airway Comment: Pt initially consumed small sip and did not initiate a swallow. He took another sip when cued to swallow again to complete the trial. Pudding via teaspoon with esophageal screen Result: 1= does not enter airway Comment: Minimal retention in mid esophagus. 1/2 Cookie Result: 1= does not enter airway Thin Liquid via sequential sips from straw Result: 5= enters airways/contacts vocal folds/not ejected - no cough response to laryngeal penetration to the vocal folds Thin Liquid via small single sip from cup Trial 2 Result: 1= does not enter airway - Oral Phase Labial Seal: No Labial Escape Tongue Control During Bolus Hold: Posterior escape of greater than half of bolus Bolus Preparation/Mastication: Slow prolonged chewing/mashing with complete recollection - posterior loss of cookie to the pharynx prior to swallow onset Bolus Transport/Lingual Motion: Slowed tongue motion Oral Residue: Trace residue lining oral structures - Pharyngeal Phase Initiation of Pharyngeal Swallow: Bolus head in pyriforms Soft Palate Elevation: No bolus between soft palate and pharyngeal wall Laryngeal Elevation: Partial superior movement thyroid cart/partial apprx aryt- epig petiole Anterior Hyoid Excursion: Partial anterior movement Epiglottic Movement: Complete inversion Laryngeal Vestibule Closure at Height of Swallow: Incomplete; narrow column of air/contrast in laryngeal vestibule Pharyngeal Stripping Wave: Present - complete Pharyngoesophageal Segment Opening: Complete distension and complete duration; no obstruction of flow Tongue Base Retraction: Trace column of contrast between tongue base & post. pharyngeal wall Pharyngeal Residue: Trace residue within or on pharyngeal structures - Esophageal Phase Esophageal Clearance: Esophageal retention - Diagnosis/Impression Diagnosis: Mild oropharyngeal phase dysphagia (R13.12) Impression: The oral phase is primarily marked by... -Decreased bolus control with >1/2 of the bolus spilling posteriorly to the pharynx prior to swallow onset seen with all consistencies. -Slowed and delayed tongue motion for A-P transport. -Prolonged, but adequate mastication of 1/2 cookie with posterior loss prior to swallow onset. The pharyngeal phase is primarily marked by... -Moderately delayed swallow onset. Patient required verbal cue to swallow nectar thick liquid by cup as he did not initiate a swallow. When cued to swallow, he took an additional sip of nectar thick barium, then swallowed to clear the trial. -Mildly decreased airway closure during the swallow due to partial anterior hyoid excursion and decreased laryngeal elevation. -Laryngeal penetration of thin liquids via sequential straw sip to the vocal folds without full ejection - no cough in response to laryngeal penetration to the vocal folds. No aspiration observed during the study. - Recommendations Diet: Mechanical Soft Textures, Thin Liquids Compensatory Strategies: Small Bites, Small Sips - (consider use of Provale bolus control cup if unable to reliably control bolus size/rate with liquids), No Straws, Slow Rate, Sitting upright, Assist with verbal cues to use recommended strategies Supervision: 1:1 Close Supervision Recommend Repeat Modified Barium Swallow: TBD Need for Skilled Speech Therapy Services: Yes Comment: Will recommend the patient for outpatient skilled speech therapy to address mild deficits in oropharyngeal swallow function. Will recommend the patient for oropharyngeal strengthening to improve lingual control and coordination, laryngeal elevation, and hyoid excursion (lingual resistance exercises, lingual coordination exercises, CTAR, Birdie). The patient would benefit from thorough education regarding diet recommendations and recommended compensatory strategies. Patient expressed desire for more preferential foods, especially a burrito. If deemed clinically appropriate by treating ENGINE TURNER, will recommend trialing more solid textures, including these preferential foods, in a meal analysis to determine if the patient is safe for further diet advancement. Would strongly encourage use of dentures. Patient?s mother expressed changes in vocal quality. Will recommend voice evaluation. Education Completed: 1. Described result of evaluation., 4. Family/caregivers understand evaluation & agree w/ goals & tx plan., 7. Pt requires further education on strategies & risks., 8. Family/caregivers require further education on strategies & risks. - Status Active ST Patient: Active - Contact Information [facility] Speech Therapy:: Caryn Dale M.A. [facility] Speech-Language Pathologist [facility] [address] [place] [address] [phone] 10/05/22 14:55
== END | disposition home or self-care (01) ==
LOC: RAD 13:16
PROVIDERS: Visit Provider Family Medicine
DX: R13.12 Dysphagia, oropharyngeal phase (principal)
CPT/HCPCS: 74230; 92611

== ENCOUNTER → 2023-05-10 | Outpatient (REF) | payer MEDICAID, SELFPAY ==
[2023-05-10 09:17] LABS: Anion Gap 12 (5-15); BUN 110 mg/dL (7-18); BUN/Creat Ratio 21.1 RATIO (10-20); Calcium,Total 8.9 mg/dL (8.5-10.1); Chloride 112 mmol/L (98-107); Creatinine, Serum 5.22 mg/dL (0.70-1.30); EST Glomerular Filtration Rate 13 mL/min (>60); Est Glom Filt Rate - Afr Amer 15 mL/min (>60); Glucose 226 mg/dL (74-106); Potassium 3.8 mmol/L (3.5-5.1); Sodium Level 137 mmol/L (136-145)
== END | disposition home or self-care (01) ==
LOC: OLS.ACW100 05:00
PROVIDERS: Visit Provider Family Medicine
DX: G93.41 Metabolic encephalopathy (principal); J18.1 Lobar pneumonia, unspecified organism; M62.81 Muscle weakness (generalized); R27.9 Unspecified lack of coordination; R53.1 Weakness; E86.0 Dehydration; H53.9 Unspecified visual disturbance
CPT/HCPCS: 36415; 80048

== ENCOUNTER → 2023-05-17 | Outpatient (REF) | payer MEDICAID, SELFPAY ==
[2023-05-17 09:26] LABS: Hematocrit 26.1 % (40-54); Hemoglobin 8.5 g/dL (13.0-16.5); Mean Corp Hgb Conc 32.6 g/dL (32-36); Mean Corpuscular Hgb 29.9 pg (27.0-32.0); Mean Corpuscular Volume 91.9 fL (80-94); Mean Platelet Vol. 10.8 fl (6.2-12.0); Platelet Count 202 K/mm3 (150-450); RBC Distribution Width CV 14.5 % (11.6-14.6); RBC Distribution Width SD 47.8 fl (35.1-43.9); Red Blood Count 2.84 M/mm3 (4.6-6.2); White Blood Count 7.6 K/mm3 (4.4-11.0)
[2023-05-17 09:29] LABS: Vitamin D,25 Hydroxy 47.6 ng/mL
[2023-05-17 09:36] LABS: ALB/GLOB Ratio 0.8 RATIO (0.9-2.4); AST(SGOT) 19 U/L (15-37); Alanine Aminotransfer ALT/SGPT 39 U/L (16-61); Albumin, Serum 2.9 g/dL (3.2-5.0); Alkaline Phosphatase 54 U/L (45-117); Anion Gap 9 (5-15); BUN 40 mg/dL (7-18); BUN/Creat Ratio 17.9 RATIO (10-20); Calcium,Total 8.2 mg/dL (8.5-10.1); Chloride 111 mmol/L (98-107); Cholesterol 71 mg/dL (200); Creatinine, Serum 2.23 mg/dL (0.70-1.30); EST Glomerular Filtration Rate 34 mL/min (>60); Est Glom Filt Rate - Afr Amer 41 mL/min (>60); Globulin 3.6 g/dL (2.2-4.2); Glucose 187 mg/dL (74-106); High Density Lipoprotein 37 mg/dL; Potassium 2.8 mmol/L (3.5-5.1); Protein, Total 6.5 g/dL (6.4-8.2); Sodium Level 142 mmol/L (136-145); Thyroid Stim Hormone (TSH) 1.12 uIU/mL (0.358-3.74); Triglycerides 74 mg/dL; Very Low Density Lipoprotein 15 mg/dL (5-40)
[2023-05-17 10:04] LABS: Hemoglobin A1c 7.1 % (3.8-5.6)
== END | disposition home or self-care (01) ==
LOC: OLS.ACW100 05:00
PROVIDERS: Visit Provider Family Medicine
DX: G93.41 Metabolic encephalopathy (principal); J18.1 Lobar pneumonia, unspecified organism; M62.81 Muscle weakness (generalized); R53.1 Weakness; E86.0 Dehydration; H53.9 Unspecified visual disturbance
CPT/HCPCS: 36415; 80053; 80061; 82306; 83036; 84443; 85027

== ENCOUNTER → 2023-05-23 | Outpatient (REF) | payer MEDICAID, SELFPAY ==
[2023-05-23 08:32] LABS: Hematocrit 27.3 % (40-54); Hemoglobin 8.5 g/dL (13.0-16.5); Mean Corp Hgb Conc 31.1 g/dL (32-36); Mean Corpuscular Hgb 29.4 pg (27.0-32.0); Mean Corpuscular Volume 94.5 fL (80-94); Mean Platelet Vol. 11.4 fl (6.2-12.0); Platelet Count 220 K/mm3 (150-450); RBC Distribution Width CV 14.9 % (11.6-14.6); RBC Distribution Width SD 51.1 fl (35.1-43.9); Red Blood Count 2.89 M/mm3 (4.6-6.2); White Blood Count 7.7 K/mm3 (4.4-11.0)
[2023-05-23 08:59] LABS: ALB/GLOB Ratio 0.8 RATIO (0.9-2.4); AST(SGOT) 23 U/L (15-37); Alanine Aminotransfer ALT/SGPT 39 U/L (16-61); Albumin, Serum 2.9 g/dL (3.2-5.0); Alkaline Phosphatase 53 U/L (45-117); Anion Gap 5 (5-15); BUN 38 mg/dL (7-18); BUN/Creat Ratio 18.9 RATIO (10-20); Calcium,Total 8.6 mg/dL (8.5-10.1); Chloride 111 mmol/L (98-107); Cholesterol 91 mg/dL (200); Creatinine, Serum 2.01 mg/dL (0.70-1.30); EST Glomerular Filtration Rate 38 mL/min (>60); Est Glom Filt Rate - Afr Amer 46 mL/min (>60); Globulin 3.6 g/dL (2.2-4.2); Glucose 155 mg/dL (74-106); High Density Lipoprotein 33 mg/dL; Magnesium 2.1 mg/dL (1.6-2.6); Potassium 4.9 mmol/L (3.5-5.1); Protein, Total 6.5 g/dL (6.4-8.2); Sodium Level 140 mmol/L (136-145); Thyroid Stim Hormone (TSH) 2.04 uIU/mL (0.358-3.74); Triglycerides 90 mg/dL; Very Low Density Lipoprotein 18 mg/dL (5-40)
[2023-05-23 09:11] LABS: Hemoglobin A1c 6.7 % (3.8-5.6)
[2023-05-23 10:02] LABS: Vitamin D,25 Hydroxy 42.9 ng/mL
== END | disposition home or self-care (01) ==
LOC: OLS.ACW100 07:30
PROVIDERS: Visit Provider Family Medicine
DX: G93.41 Metabolic encephalopathy (principal); J18.1 Lobar pneumonia, unspecified organism; M62.81 Muscle weakness (generalized); R27.9 Unspecified lack of coordination; R53.1 Weakness; E86.0 Dehydration; H53.9 Unspecified visual disturbance
CPT/HCPCS: 36415; 80053; 80061; 82306; 83036; 83735; 84443; 84550; 85027

== ENCOUNTER → 2023-06-03 | Outpatient (REF) | payer MEDICAID, SELFPAY ==
[2023-06-03 10:23] LABS: Mean Corp Hgb Conc 30.3 g/dL (32-36); Mean Corpuscular Hgb 29.5 pg (27.0-32.0); Mean Corpuscular Volume 97.3 fL (80-94); Mean Platelet Vol. 11.5 fl (6.2-12.0); Platelet Count 235 K/mm3 (150-450); RBC Distribution Width CV 14.1 % (11.6-14.6); RBC Distribution Width SD 49.6 fl (35.1-43.9); Red Blood Count 3.39 M/mm3 (4.6-6.2)
[2023-06-03 10:33] LABS: Anion Gap 6 (5-15); BUN 39 mg/dL (7-18); BUN/Creat Ratio 14.5 RATIO (10-20); Calcium,Total 9.1 mg/dL (8.5-10.1); Chloride 107 mmol/L (98-107); Creatinine, Serum 2.69 mg/dL (0.70-1.30); EST Glomerular Filtration Rate 27 mL/min (>60); Est Glom Filt Rate - Afr Amer 33 mL/min (>60); Glucose 91 mg/dL (74-106); Potassium 5.4 mmol/L (3.5-5.1); Sodium Level 137 mmol/L (136-145)
== END | disposition home or self-care (01) ==
LOC: OLS.ACW300 04:00
PROVIDERS: Referring Provider Family Medicine; Visit Provider Family Medicine
DX: G93.41 Metabolic encephalopathy (principal); J18.1 Lobar pneumonia, unspecified organism; M62.81 Muscle weakness (generalized); E86.0 Dehydration
CPT/HCPCS: 36415; 80048; 85027

== ENCOUNTER → 2023-06-10 | Outpatient (REF) | payer MEDICAID, SELFPAY ==
[2023-06-10 09:52] LABS: Anion Gap 11 (5-15); BUN 55 mg/dL (7-18); BUN/Creat Ratio 19.6 RATIO (10-20); Chloride 109 mmol/L (98-107); EST Glomerular Filtration Rate 26 mL/min (>60); Est Glom Filt Rate - Afr Amer 31 mL/min (>60); Glucose 178 mg/dL (74-106); Potassium 4.1 mmol/L (3.5-5.1); Sodium Level 140 mmol/L (136-145)
== END | disposition home or self-care (01) ==
LOC: OLS.ACW300 05:00
PROVIDERS: Visit Provider Family Medicine
DX: G93.41 Metabolic encephalopathy (principal); M62.81 Muscle weakness (generalized); J18.1 Lobar pneumonia, unspecified organism
CPT/HCPCS: 36415; 80048

== ENCOUNTER → 2023-06-19 | Outpatient (REF) | payer MEDICAID, SELFPAY ==
[2023-06-19 07:29] LABS: Hematocrit 32.3 % (40-54); Hemoglobin 10.1 g/dL (13.0-16.5); Mean Corp Hgb Conc 31.3 g/dL (32-36); Mean Corpuscular Hgb 29.4 pg (27.0-32.0); Mean Corpuscular Volume 94.2 fL (80-94); Mean Platelet Vol. 10.9 fl (6.2-12.0); Platelet Count 236 K/mm3 (150-450); RBC Distribution Width CV 14.3 % (11.6-14.6); RBC Distribution Width SD 48.7 fl (35.1-43.9); Red Blood Count 3.43 M/mm3 (4.6-6.2); White Blood Count 7.1 K/mm3 (4.4-11.0)
[2023-06-19 07:39] LABS: Anion Gap 4 (5-15); BUN 46 mg/dL (7-18); BUN/Creat Ratio 18.4 RATIO (10-20); Calcium,Total 8.7 mg/dL (8.5-10.1); Chloride 113 mmol/L (98-107); EST Glomerular Filtration Rate 30 mL/min (>60); Est Glom Filt Rate - Afr Amer 36 mL/min (>60); Glucose 184 mg/dL (74-106); Potassium 5.1 mmol/L (3.5-5.1); Sodium Level 136 mmol/L (136-145)
== END | disposition home or self-care (01) ==
LOC: OLS.ACW300 05:00
PROVIDERS: Visit Provider Family Medicine
DX: G93.41 Metabolic encephalopathy (principal); J18.1 Lobar pneumonia, unspecified organism; M62.81 Muscle weakness (generalized); R53.1 Weakness
CPT/HCPCS: 36415; 80048; 85027

== ENCOUNTER → 2023-06-24 | Outpatient (REF) | payer MEDICAID, SELFPAY ==
[2023-06-24 09:07] LABS: Hematocrit 28.9 % (40-54); Mean Corp Hgb Conc 31.1 g/dL (32-36); Mean Corpuscular Hgb 29.3 pg (27.0-32.0); Mean Corpuscular Volume 94.1 fL (80-94); Mean Platelet Vol. 11.1 fl (6.2-12.0); Platelet Count 227 K/mm3 (150-450); RBC Distribution Width CV 14.5 % (11.6-14.6); RBC Distribution Width SD 49.8 fl (35.1-43.9); Red Blood Count 3.07 M/mm3 (4.6-6.2); White Blood Count 7.2 K/mm3 (4.4-11.0)
[2023-06-24 09:26] LABS: BUN 49 mg/dL (7-18); BUN/Creat Ratio 20.9 RATIO (10-20); Calcium,Total 8.5 mg/dL (8.5-10.1); Chloride 112 mmol/L (98-107); Creatinine, Serum 2.35 mg/dL (0.70-1.30); EST Glomerular Filtration Rate 32 mL/min (>60); Est Glom Filt Rate - Afr Amer 39 mL/min (>60); Glucose 260 mg/dL (74-106); Phosphorus 3.9 mg/dL (2.5-4.9); Potassium 4.6 mmol/L (3.5-5.1); Sodium Level 138 mmol/L (136-145)
[2023-06-24 09:50] LABS: Vitamin D,25 Hydroxy 46.6 ng/mL
[2023-06-24 10:14] LABS: PTHIN 62.5 pg/mL (18.4-80.1)
== END | disposition home or self-care (01) ==
LOC: OLS.ACW300 05:00
PROVIDERS: Visit Provider Family Medicine
DX: G93.41 Metabolic encephalopathy (principal); J18.1 Lobar pneumonia, unspecified organism; M62.81 Muscle weakness (generalized); R27.9 Unspecified lack of coordination; R53.1 Weakness; E86.0 Dehydration; H53.9 Unspecified visual disturbance
CPT/HCPCS: 36415; 80069; 82306; 83970; 85027

== ENCOUNTER → 2023-07-05 | Outpatient (REF) | payer MEDICAID, SELFPAY ==
[2023-07-05 08:21] LABS: Hematocrit 26.6 % (40-54); Hemoglobin 8.3 g/dL (13.0-16.5); Mean Corp Hgb Conc 31.2 g/dL (32-36); Mean Corpuscular Hgb 28.8 pg (27.0-32.0); Mean Corpuscular Volume 92.4 fL (80-94); Mean Platelet Vol. 10.9 fl (6.2-12.0); Platelet Count 222 K/mm3 (150-450); RBC Distribution Width CV 13.6 % (11.6-14.6); RBC Distribution Width SD 46.6 fl (35.1-43.9); Red Blood Count 2.88 M/mm3 (4.6-6.2); White Blood Count 7.6 K/mm3 (4.4-11.0)
[2023-07-05 08:29] LABS: Anion Gap 3 (5-15); BUN 36 mg/dL (7-18); BUN/Creat Ratio 16.1 RATIO (10-20); Calcium,Total 8.7 mg/dL (8.5-10.1); Chloride 102 mmol/L (98-107); Creatinine, Serum 2.24 mg/dL (0.70-1.30); EST Glomerular Filtration Rate 34 mL/min (>60); Est Glom Filt Rate - Afr Amer 41 mL/min (>60); Glucose 292 mg/dL (74-106); Sodium Level 134 mmol/L (136-145)
== END | disposition home or self-care (01) ==
LOC: OLS.ACW300 05:00
PROVIDERS: Visit Provider Family Medicine
DX: Z79.899 Other long term (current) drug therapy (principal)
CPT/HCPCS: 36415; 80048; 85027

== ENCOUNTER → 2023-08-05 | Outpatient (REF) | payer MEDICAID, SELFPAY ==
[2023-08-05 10:12] LABS: Hematocrit 29.6 % (40-54); Hemoglobin 9.6 g/dL (13.0-16.5); Mean Corp Hgb Conc 32.4 g/dL (32-36); Mean Corpuscular Hgb 29.6 pg (27.0-32.0); Mean Corpuscular Volume 91.4 fL (80-94); Mean Platelet Vol. 10.8 fl (6.2-12.0); Platelet Count 238 K/mm3 (150-450); RBC Distribution Width CV 13.3 % (11.6-14.6); RBC Distribution Width SD 44.5 fl (35.1-43.9); Red Blood Count 3.24 M/mm3 (4.6-6.2)
[2023-08-05 10:33] LABS: Anion Gap 5 (5-15); BUN 49 mg/dL (7-18); BUN/Creat Ratio 22.7 RATIO (10-20); Calcium,Total 9.2 mg/dL (8.5-10.1); Chloride 107 mmol/L (98-107); Creatinine, Serum 2.16 mg/dL (0.70-1.30); EST Glomerular Filtration Rate 35 mL/min (>60); Est Glom Filt Rate - Afr Amer 42 mL/min (>60); Glucose 235 mg/dL (74-106); Potassium 4.7 mmol/L (3.5-5.1); Sodium Level 138 mmol/L (136-145)
== END | disposition home or self-care (01) ==
LOC: OLS.ACW300 05:00
PROVIDERS: Visit Provider Family Medicine
DX: G93.41 Metabolic encephalopathy (principal); M62.81 Muscle weakness (generalized); R53.1 Weakness
CPT/HCPCS: 36415; 80048; 85027

== ENCOUNTER → 2023-09-09 | Outpatient (REF) | payer MEDICAID, SELFPAY ==
[2023-09-09 10:19] LABS: Hemoglobin 8.6 g/dL (13.0-16.5); Mean Corp Hgb Conc 30.7 g/dL (32-36); Mean Corpuscular Hgb 28.6 pg (27.0-32.0); Platelet Count 224 K/mm3 (150-450); RBC Distribution Width CV 13.8 % (11.6-14.6); RBC Distribution Width SD 46.6 fl (35.1-43.9); Red Blood Count 3.01 M/mm3 (4.6-6.2); White Blood Count 6.8 K/mm3 (4.4-11.0)
[2023-09-09 10:44] LABS: Anion Gap 4 (5-15); BUN 48 mg/dL (7-18); Calcium,Total 8.8 mg/dL (8.5-10.1); Chloride 111 mmol/L (98-107); Creatinine, Serum 2.09 mg/dL (0.70-1.30); EST Glomerular Filtration Rate 36 mL/min (>60); Est Glom Filt Rate - Afr Amer 44 mL/min (>60); Glucose 251 mg/dL (74-106); Potassium 4.9 mmol/L (3.5-5.1); Sodium Level 141 mmol/L (136-145)
== END | disposition home or self-care (01) ==
LOC: OLS.ACW300 05:00
PROVIDERS: Visit Provider Family Medicine
DX: G93.41 Metabolic encephalopathy (principal); J18.1 Lobar pneumonia, unspecified organism; M62.81 Muscle weakness (generalized); R53.1 Weakness
CPT/HCPCS: 36415; 80048; 85027

== ENCOUNTER → 2023-09-13 | Outpatient (REF) | payer MEDICAID, SELFPAY ==
[2023-09-13 09:42] LABS: Color, Urine Amber (Yellow); Glucose, Dipstick 50 mg/dl (Normal); Ketone-Dipstick 5 mg/dl (Negative); Leukocyte Esterase-Dipstick 500 /ul (Negative); Nitrite-Dipstick Negative (Negative); Occult Blood-Urine 250 /ul (Negative); Protein-Dipstick 100 mg/dl (Negative); Urine Bilirubin Dipstick Negative (Negative); Urine Clarity Turbid (Clear); Urine Urobilinogen Normal (Normal)
[2023-09-13 10:01] LABS: Hematocrit 27.5 % (40-54); Hemoglobin 8.5 g/dL (13.0-16.5); Mean Corp Hgb Conc 30.9 g/dL (32-36); Mean Corpuscular Hgb 28.6 pg (27.0-32.0); Mean Corpuscular Volume 92.6 fL (80-94); Mean Platelet Vol. 11.3 fl (6.2-12.0); Platelet Count 198 K/mm3 (150-450); RBC Distribution Width CV 13.7 % (11.6-14.6); RBC Distribution Width SD 46.5 fl (35.1-43.9); Red Blood Count 2.97 M/mm3 (4.6-6.2); White Blood Count 7.2 K/mm3 (4.4-11.0)
== END | disposition home or self-care (01) ==
LOC: OLS.ACW300 05:00
PROVIDERS: Visit Provider Family Medicine
DX: R41.82 Altered mental status, unspecified (principal); A41.9 Sepsis, unspecified organism; R53.1 Weakness; M62.81 Muscle weakness (generalized)
CPT/HCPCS: 36415; 81002; 85027; 87077; 87086; 87088; 87186

== ENCOUNTER 2023-10-07 05:00 | Outpatient (REF) | payer MEDICAID, SELFPAY ==
[2023-10-07 09:23] LABS: Hematocrit 26.8 % (40-54); Hemoglobin 8.4 g/dL (13.0-16.5); Mean Corp Hgb Conc 31.3 g/dL (32-36); Mean Corpuscular Hgb 29.1 pg (27.0-32.0); Mean Corpuscular Volume 92.7 fL (80-94); Mean Platelet Vol. 11.6 fl (6.2-12.0); Platelet Count 204 K/mm3 (150-450); RBC Distribution Width CV 14.1 % (11.6-14.6); RBC Distribution Width SD 47.3 fl (35.1-43.9); Red Blood Count 2.89 M/mm3 (4.6-6.2); White Blood Count 9.8 K/mm3 (4.4-11.0)
[2023-10-07 10:14] LABS: Anion Gap 7 (5-15); BUN 70 mg/dL (7-18); BUN/Creat Ratio 28.6 RATIO (10-20); Calcium,Total 7.9 mg/dL (8.5-10.1); Chloride 98 mmol/L (98-107); Creatinine, Serum 2.45 mg/dL (0.70-1.30); EST Glomerular Filtration Rate 30 mL/min (>60); Est Glom Filt Rate - Afr Amer 37 mL/min (>60); Glucose 300 mg/dL (74-106); Potassium 3.9 mmol/L (3.5-5.1); Sodium Level 134 mmol/L (136-145)
== END 2023-10-07 23:59 | disposition home or self-care (01) ==
LOC: OLS.ACW300 05:00
PROVIDERS: Visit Provider Family Medicine
DX: G93.41 Metabolic encephalopathy (principal); J18.1 Lobar pneumonia, unspecified organism; M62.81 Muscle weakness (generalized); R53.1 Weakness; H53.9 Unspecified visual disturbance
CPT/HCPCS: 36415; 80048; 85027

== ENCOUNTER → 2023-11-04 | Outpatient (REF) | payer MEDICAID, SELFPAY ==
[2023-11-04 10:19] LABS: Hematocrit 26.6 % (40-54); Hemoglobin 8.3 g/dL (13.0-16.5); Mean Corp Hgb Conc 31.2 g/dL (32-36); Mean Corpuscular Hgb 28.9 pg (27.0-32.0); Mean Corpuscular Volume 92.7 fL (80-94); Mean Platelet Vol. 10.8 fl (6.2-12.0); Platelet Count 306 K/mm3 (150-450); RBC Distribution Width CV 14.1 % (11.6-14.6); RBC Distribution Width SD 47.9 fl (35.1-43.9); Red Blood Count 2.87 M/mm3 (4.6-6.2); White Blood Count 6.7 K/mm3 (4.4-11.0)
[2023-11-04 10:26] LABS: Anion Gap 5 (5-15); BUN 59 mg/dL (7-18); BUN/Creat Ratio 24.4 RATIO (10-20); Calcium,Total 9.1 mg/dL (8.5-10.1); Chloride 103 mmol/L (98-107); Creatinine, Serum 2.42 mg/dL (0.70-1.30); EST Glomerular Filtration Rate 31 mL/min (>60); Est Glom Filt Rate - Afr Amer 37 mL/min (>60); Glucose 329 mg/dL (74-106); Potassium 4.6 mmol/L (3.5-5.1); Sodium Level 136 mmol/L (136-145)
== END | disposition home or self-care (01) ==
LOC: OLS.ACW300 04:00
PROVIDERS: Referring Provider Family Medicine; Visit Provider Family Medicine
DX: J18.9 Pneumonia, unspecified organism (principal); M62.81 Muscle weakness (generalized); E86.0 Dehydration; R53.1 Weakness
CPT/HCPCS: 36415; 80048; 85027

== ENCOUNTER → 2023-11-19 | Outpatient (REF) | payer MEDICARE, MEDICAID, SELFPAY ==
[2023-11-19 08:24] LABS: Hematocrit 27.9 % (40-54); Hemoglobin 8.6 g/dL (13.0-16.5); Mean Corp Hgb Conc 30.8 g/dL (32-36); Mean Corpuscular Hgb 28.9 pg (27.0-32.0); Mean Corpuscular Volume 93.6 fL (80-94); Mean Platelet Vol. 11.2 fl (6.2-12.0); Platelet Count 198 K/mm3 (150-450); RBC Distribution Width CV 13.7 % (11.6-14.6); RBC Distribution Width SD 46.5 fl (35.1-43.9); Red Blood Count 2.98 M/mm3 (4.6-6.2); White Blood Count 8.1 K/mm3 (4.4-11.0)
[2023-11-19 08:42] LABS: Anion Gap 4 (5-15); BUN 50 mg/dL (7-18); BUN/Creat Ratio 20.2 RATIO (10-20); Calcium,Total 8.6 mg/dL (8.5-10.1); Chloride 105 mmol/L (98-107); Creatinine, Serum 2.48 mg/dL (0.70-1.30); EST Glomerular Filtration Rate 30 mL/min (>60); Est Glom Filt Rate - Afr Amer 36 mL/min (>60); Glucose 314 mg/dL (74-106); Sodium Level 136 mmol/L (136-145)
== END ==
LOC: OLS.ACW300 05:00
PROVIDERS: Visit Provider Family Medicine
DX: N31.9 Neuromuscular dysfunction of bladder, unspecified (principal); R07.9 Chest pain, unspecified; M62.81 Muscle weakness (generalized); I10 Essential (primary) hypertension; E11.9 Type 2 diabetes mellitus without complications
CPT/HCPCS: 36415; 80048; 84443; 85027

== ENCOUNTER → 2023-11-25 | Outpatient (REF) | payer MEDICAID, MEDICARE, SELFPAY ==
[2023-11-25 09:40] LABS: Anion Gap 4 (5-15); BUN 62 mg/dL (7-18); BUN/Creat Ratio 24.3 RATIO (10-20); Calcium,Total 8.9 mg/dL (8.5-10.1); Chloride 106 mmol/L (98-107); Creatinine, Serum 2.55 mg/dL (0.70-1.30); EST Glomerular Filtration Rate 29 mL/min (>60); Est Glom Filt Rate - Afr Amer 35 mL/min (>60); Glucose 169 mg/dL (74-106); Potassium 5.2 mmol/L (3.5-5.1); Sodium Level 135 mmol/L (136-145)
== END | disposition home or self-care (01) ==
LOC: OLS.ACW300 05:00
PROVIDERS: Visit Provider Family Medicine
DX: Z79.899 Other long term (current) drug therapy (principal)
CPT/HCPCS: 36415; 80048

== ENCOUNTER → 2023-12-03 | Outpatient (REF) | payer MEDICAID, MEDICARE, SELFPAY ==
[2023-12-03 09:12] LABS: Anion Gap 5 (5-15); BUN 46 mg/dL (7-18); BUN/Creat Ratio 19.2 RATIO (10-20); Calcium,Total 9.3 mg/dL (8.5-10.1); Chloride 103 mmol/L (98-107); EST Glomerular Filtration Rate 31 mL/min (>60); Est Glom Filt Rate - Afr Amer 38 mL/min (>60); Glucose 250 mg/dL (74-106); Potassium 4.7 mmol/L (3.5-5.1); Sodium Level 137 mmol/L (136-145)
== END | disposition home or self-care (01) ==
LOC: OLS.ACW300 05:00
PROVIDERS: Visit Provider Family Medicine
DX: N31.9 Neuromuscular dysfunction of bladder, unspecified (principal); M62.81 Muscle weakness (generalized)
CPT/HCPCS: 36415; 80048

== ENCOUNTER → 2023-12-09 | Outpatient (REF) | payer MEDICARE, MEDICAID, SELFPAY ==
[2023-12-09 09:19] LABS: Hematocrit 26.6 % (40-54); Hemoglobin 8.6 g/dL (13.0-16.5); Mean Corp Hgb Conc 32.3 g/dL (32-36); Mean Corpuscular Hgb 29.6 pg (27.0-32.0); Mean Corpuscular Volume 91.4 fL (80-94); Mean Platelet Vol. 11.1 fl (6.2-12.0); Platelet Count 258 K/mm3 (150-450); RBC Distribution Width CV 13.2 % (11.6-14.6); RBC Distribution Width SD 44.6 fl (35.1-43.9); Red Blood Count 2.91 M/mm3 (4.6-6.2); White Blood Count 12.8 K/mm3 (4.4-11.0)
[2023-12-09 09:34] LABS: Anion Gap 7 (5-15); BUN 71 mg/dL (7-18); BUN/Creat Ratio 22.4 RATIO (10-20); Calcium,Total 8.7 mg/dL (8.5-10.1); Chloride 99 mmol/L (98-107); Creatinine, Serum 3.17 mg/dL (0.70-1.30); EST Glomerular Filtration Rate 23 mL/min (>60); Est Glom Filt Rate - Afr Amer 27 mL/min (>60); Glucose 224 mg/dL (74-106); Potassium 4.1 mmol/L (3.5-5.1); Sodium Level 131 mmol/L (136-145)
== END ==
LOC: OLS.ACW300 05:00
PROVIDERS: Visit Provider Family Medicine
DX: J18.9 Pneumonia, unspecified organism (principal); M62.81 Muscle weakness (generalized); R27.9 Unspecified lack of coordination; H53.9 Unspecified visual disturbance; R41.841 Cognitive communication deficit
CPT/HCPCS: 36415; 80048; 85027

== ENCOUNTER → 2023-12-13 | Outpatient (REF) | payer MEDICAID, MEDICARE, SELFPAY ==
[2023-12-13 08:53] LABS: Mucous, Urine 0 SEEN /hpf (<or=2+); Squamous Epithelial Cells - UA 0 SEEN /hpf (0-5)
[2023-12-13 08:54] LABS: Hematocrit 26.6 % (40-54); Hemoglobin 8.3 g/dL (13.0-16.5); Mean Corp Hgb Conc 31.2 g/dL (32-36); Mean Corpuscular Hgb 28.4 pg (27.0-32.0); Mean Corpuscular Volume 91.1 fL (80-94); Mean Platelet Vol. 11.2 fl (6.2-12.0); Platelet Count 320 K/mm3 (150-450); RBC Distribution Width CV 13.2 % (11.6-14.6); RBC Distribution Width SD 43.5 fl (35.1-43.9); Red Blood Count 2.92 M/mm3 (4.6-6.2); White Blood Count 8.1 K/mm3 (4.4-11.0)
[2023-12-13 08:58] LABS: Color, Urine Yellow (Yellow); Glucose, Dipstick 50 mg/dl (Normal); Ketone-Dipstick Negative (Negative); Leukocyte Esterase-Dipstick 500 /ul (Negative); Nitrite-Dipstick Positive (Negative); Occult Blood-Urine 10 /ul (Negative); Protein-Dipstick 100 mg/dl (Negative); Urine Bilirubin Dipstick Negative (Negative); Urine Clarity Sl. Cloudy (Clear); Urine Urobilinogen Normal (Normal)
[2023-12-13 10:00] LABS: Bacteria 2+ /hpf (None Seen); Red Blood Cells-Urine 0-5 SEEN /hpf (0-5); White Blood Cells 25-50 SEEN /hpf (0-5)
== END | disposition home or self-care (01) ==
LOC: OLS.ACW300 05:00
PROVIDERS: Visit Provider Family Medicine
DX: N31.9 Neuromuscular dysfunction of bladder, unspecified (principal); R07.9 Chest pain, unspecified; M62.81 Muscle weakness (generalized); R27.9 Unspecified lack of coordination
CPT/HCPCS: 36415; 81001; 85027; 87077; 87086; 87088; 87186

== ENCOUNTER → 2024-01-06 05:00 | Outpatient (REF) | payer MEDICARE, MEDICAID, SELFPAY ==
[2024-01-06 08:37] LABS: Hematocrit 26.5 % (40-54); Hemoglobin 8.2 g/dL (13.0-16.5); Mean Corp Hgb Conc 30.9 g/dL (32-36); Mean Corpuscular Hgb 28.4 pg (27.0-32.0); Mean Corpuscular Volume 91.7 fL (80-94); Mean Platelet Vol. 11.6 fl (6.2-12.0); Platelet Count 214 K/mm3 (150-450); RBC Distribution Width CV 13.9 % (11.6-14.6); RBC Distribution Width SD 46.5 fl (35.1-43.9); Red Blood Count 2.89 M/mm3 (4.6-6.2); White Blood Count 6.3 K/mm3 (4.4-11.0)
[2024-01-06 09:03] LABS: Anion Gap 4 (5-15); BUN 57 mg/dL (7-18); BUN/Creat Ratio 20.4 RATIO (10-20); Calcium,Total 8.5 mg/dL (8.5-10.1); Chloride 104 mmol/L (98-107); EST Glomerular Filtration Rate 26 mL/min (>60); Est Glom Filt Rate - Afr Amer 31 mL/min (>60); Glucose 348 mg/dL (74-106); Potassium 4.6 mmol/L (3.5-5.1); Sodium Level 134 mmol/L (136-145)
== END ==
LOC: OLS.ACW300 05:00
PROVIDERS: Visit Provider Family Medicine
DX: N31.9 Neuromuscular dysfunction of bladder, unspecified (principal); R07.9 Chest pain, unspecified; M62.81 Muscle weakness (generalized); R27.9 Unspecified lack of coordination; Z74.1 Need for assistance with personal care
CPT/HCPCS: 36415; 80048; 85027

== ENCOUNTER → 2024-01-13 05:00 | Outpatient (REF) | payer MEDICARE, MEDICAID, SELFPAY ==
[2024-01-13 08:34] LABS: Anion Gap 6 (5-15); BUN 64 mg/dL (7-18); BUN/Creat Ratio 22.9 RATIO (10-20); Calcium,Total 8.8 mg/dL (8.5-10.1); Chloride 101 mmol/L (98-107); Creatinine, Serum 2.79 mg/dL (0.70-1.30); EST Glomerular Filtration Rate 26 mL/min (>60); Est Glom Filt Rate - Afr Amer 32 mL/min (>60); Glucose 448 mg/dL (74-106); Potassium 4.7 mmol/L (3.5-5.1); Sodium Level 134 mmol/L (136-145)
[2024-01-13 13:30] LABS: Hematocrit 24.9 % (40-54); Hemoglobin 7.9 g/dL (13.0-16.5); Mean Corp Hgb Conc 31.7 g/dL (32-36); Mean Corpuscular Hgb 28.9 pg (27.0-32.0); Mean Corpuscular Volume 91.2 fL (80-94); Mean Platelet Vol. 11.7 fl (6.2-12.0); Platelet Count 184 K/mm3 (150-450); RBC Distribution Width CV 14.1 % (11.6-14.6); Red Blood Count 2.73 M/mm3 (4.6-6.2); White Blood Count 6.7 K/mm3 (4.4-11.0)
== END ==
LOC: OLS.ACW300 05:00
PROVIDERS: Visit Provider Family Medicine
DX: N39.0 Urinary tract infection, site not specified (principal); L03.116 Cellulitis of left lower limb; R07.9 Chest pain, unspecified; M62.81 Muscle weakness (generalized); Z74.1 Need for assistance with personal care; R27.9 Unspecified lack of coordination
CPT/HCPCS: 36415; 80048; 85027

== ENCOUNTER → 2024-02-17 | Outpatient (REF) | payer MEDICARE, MEDICAID, SELFPAY ==
[2024-02-17 09:44] LABS: Anion Gap 7 (5-15); BUN 62 mg/dL (7-18); BUN/Creat Ratio 23.1 RATIO (10-20); Calcium,Total 8.7 mg/dL (8.5-10.1); Chloride 105 mmol/L (98-107); Creatinine, Serum 2.68 mg/dL (0.70-1.30); EST Glomerular Filtration Rate 27 mL/min (>60); Est Glom Filt Rate - Afr Amer 33 mL/min (>60); Glucose 232 mg/dL (74-106); Potassium 5.1 mmol/L (3.5-5.1); Sodium Level 137 mmol/L (136-145)
== END ==
LOC: OLS.ACW300 05:00
PROVIDERS: Visit Provider Family Medicine
DX: E11.65 Type 2 diabetes mellitus with hyperglycemia (principal); L03.116 Cellulitis of left lower limb; M62.81 Muscle weakness (generalized)
CPT/HCPCS: 36415; 80048

== ENCOUNTER → 2024-02-24 | Outpatient (REF) | payer MEDICARE, MEDICAID, SELFPAY ==
[2024-02-24 09:14] LABS: Anion Gap 5 (5-15); BUN 60 mg/dL (7-18); BUN/Creat Ratio 24.1 RATIO (10-20); Calcium,Total 8.7 mg/dL (8.5-10.1); Chloride 107 mmol/L (98-107); Creatinine, Serum 2.49 mg/dL (0.70-1.30); EST Glomerular Filtration Rate 30 mL/min (>60); Est Glom Filt Rate - Afr Amer 36 mL/min (>60); Glucose 60 mg/dL (74-106); Potassium 5.3 mmol/L (3.5-5.1); Sodium Level 138 mmol/L (136-145)
== END ==
LOC: OLS.ACW300 04:00
PROVIDERS: Visit Provider Family Medicine
DX: E11.22 Type 2 diabetes mellitus with diabetic chronic kidney disease (principal); E11.65 Type 2 diabetes mellitus with hyperglycemia; N18.4 Chronic kidney disease, stage 4 (severe)
CPT/HCPCS: 36415; 80048